=== PATIENT | male | born 1965 | race Caucasian/White ===

== ENCOUNTER → 2018-04-12 13:27 | Outpatient (CLI) | payer OTHER, SELFPAY ==
[2018-04-12 15:25] LABS: Amphetamine Urine VISTA NEGATIVE (<1000 ng/mL); Barbiturate Urine VISTA NEGATIVE (< 200 ng/mL); Benzodiazepine Urine VISTA NEGATIVE (< 200 ng/mL); Cocaine Urine VISTA NEGATIVE (< 300 ng/mL); Ecstacy Urine VISTA NEGATIVE (< 500 ng/mL); Methadone Urine VISTA NEGATIVE (< 300 ng/mL); PCP Urine VISTA NEGATIVE (< 25 ng/mL); THC Urine VISTA NEGATIVE (< 50 ng/mL); Vista UDS pH Range 6
== END ==
PROVIDERS: Family Provider Family Medicine; PCP Family Medicine; Visit Provider Anesthesiology Pain Medicine
DX: F11.20 Opioid dependence, uncomplicated (principal)
CPT/HCPCS: 80307

== ENCOUNTER → 2018-12-28 16:15 | Outpatient (CLI) | payer OTHER, SELFPAY ==
[2015-08-29 10:10] VITALS: BMI 31.6
[2018-12-28 17:57] LABS: Amphetamine Urine VISTA NEGATIVE (<1000 ng/mL); Barbiturate Urine VISTA NEGATIVE (< 200 ng/mL); Benzodiazepine Urine VISTA NEGATIVE (< 200 ng/mL); Cocaine Urine VISTA NEGATIVE (< 300 ng/mL); Ecstacy Urine VISTA NEGATIVE (< 500 ng/mL); Methadone Urine VISTA NEGATIVE (< 300 ng/mL); PCP Urine VISTA NEGATIVE (< 25 ng/mL); THC Urine VISTA NEGATIVE (< 50 ng/mL); Vista UDS pH Range 5
== END ==
PROVIDERS: Family Provider Family Medicine; PCP Family Medicine; Referring Provider Anesthesiology Pain Medicine; Visit Provider Anesthesiology Pain Medicine
DX: M51.26 Other intervertebral disc displacement, lumbar region (principal); M51.36 Other intervertebral disc degeneration, lumbar region; M96.1 Postlaminectomy syndrome, not elsewhere classified; S30.0XXA Contusion of lower back and pelvis, initial encounter
CPT/HCPCS: 80307

== ENCOUNTER 2019-01-16 17:50 | Inpatient (IN) | payer MEDICARE, SELFPAY ==
[2019-01-16] VITALS (18 sets, daily range): BP systolic 98–248; BP diastolic 58–229; PULSE 93–118; RESP 11–53; TEMP 37.9–38.2; O2SAT 63–100; BMI 32.7; BMI 33.3
[2019-01-16] MEDS: Etomidate 20 MG/10 ML Vial IV (17:56)
[2019-01-16] MEDS: Heparin Injection (Vial) 5,000 UNIT/ML VIAL 4000 UNIT IV (17:57)
--- NOTE | 2019-01-16 17:57 | RAD_ITS ---
STUDY: X-RAY CHEST REASON FOR EXAM: Male, 53 years old. Chest pain. TECHNIQUE: Single frontal projection of the chest. COMPARISON: None. FINDINGS: The majority of the chest is obscured by an electromechanical device, probably an automated CPR device. The exam is completely nondiagnostic RAD/Chest 1 View (Portable) IMPRESSION: The majority of the chest is obscured by an electromechanical device, probably an automated CPR device. The exam is completely nondiagnostic Electronically Signed: Julian Silva MD at 12:41 EDT , Service support ,
--- NOTE | 2019-01-16 17:57 | EKG12_ITS ---
Test Reason : CODE BLUE Blood Pressure : / mmHG Vent. Rate : 111 BPM Atrial Rate : 111 BPM P-R Int : 152 ms QRS Dur : 138 ms QT Int : 358 ms P-R-T Axes : 062 111 -25 degrees QTc Int : 486 ms Sinus tachycardia Right bundle branch block Left posterior fascicular block Bifascicular block ST elevation consider inferolateral injury or acute infarct ACUTE CO / STEMI Abnormal ECG Confirmed by CALLY SHORE ([id number]), acquisitions editor DAVID KOEHLER ([id number]) on 01/29/2019 2:29:56 PM Referred By: Junior Martini Confirmed By:MONSERRAT SHORE
--- NOTE | 2019-01-16 18:05 | RAD_ITS ---
STUDY: X-RAY - ABDOMEN/PELVIS REASON FOR EXAM: Male, 53 years old. Orogastric tube placement TECHNIQUE: AP portable COMPARISON: None. FINDINGS: Limited visualization of the upper abdomen Diffuse effacement of the folds of the descending colon possibly due to inflammatory bowel disease.. There is no demonstrated free abdominal air. The visualized liver, spleen and kidneys are grossly normal in size and morphology. Orogastric tube is not visualized within the visualized portions of the abdomen There appears to be a catheter within the bladder.. Postsurgical changes status post multilevel lumbar fusion. RAD/Abdomen Single View IMPRESSION: Nonvisualization of orogastric tube within the upper abdomen.. Repeat film with better positioning recommended for further evaluation Electronically Signed: Dave Dodson MD at 19:04 EDT , Service support ,
--- NOTE | 2019-01-16 18:05 | CPS ---
Critical values on ABG given to Dr. Rand at 1802.
[2019-01-16 18:10] LABS: Base Excess -15 mmol/L (-2 to +2); Bicarbonate 15.9 mmol/L (22-26); Blood Gas Specimen Type ART; FI02 100; PO2 179 mmHG (75-100); SITE L Femoral; SO2 99 % (95-99); Time Given 1751; Total Carbon Dioxide 18 mmol/L; pCO2 60.2 mmHg (35-45); pH 7.03 (7.35-7.45)
--- NOTE | 2019-01-16 18:11 | ED.VIS.GEN ---
History of Present Illness Chief Complaint: CPR Detail of Chief Complaint: Witnessed V. fib arrest Informant: Panel Monitor Limited by: - - GCS 3 Onset: Today - 170 Context: Onset with activity Timing: Continuous Quality: Read narrative Location: Read narrative Current Severity: Severe Maximum Severity: Severe Worsened by: Unknown Relieved by: Unknown Associated Symptoms: Unknown Narrative: 53-year-old male with significant other refurbishing house purchased this past fall. He apparently collapsed. CPR was initiated at 1702. Her medics were contacted. Upon their arrival he was in V. fib. He received appropriate medications for V. fib as well as defibrillation. Airway was established. He arrived with a wide-complex rhythm and no palpable pulses. Prior similar symptoms: No Recent Illness/Hospitalization: No - Past Medical History (1) Chronic back pain Status: Chronic (2) Depression Status: Chronic (3) Obesity Status: Chronic (4) Tobacco abuse Status: Chronic Past Medical History - Allergies and Home Meds Allergies/Adverse Reactions: Allergies No Known Allergies Allergy (Verified 08/26/15 11:39) Primary Care Physician: Yassine Tinsley MD [Primary Care Provider] - Prior records reviewed: No Surgical History: noncontributory Lives: Spouse/ Significant Other Smoking Status: Current every day smoker Review of Systems ROS: Unable to Obtain Physical Exam Vital Signs/Narrative: Vital Signs Resp BP 01/16/19 17:52 18 169/148 H Inital Vital Signs reviewed: Yes General: Well nourished, Well developed, Obese Head: Normocephalic, Atraumatic. Negative for: Trauma, Tenderness Eyes: - - Pupils fixed and dilated ENT: Moist mucous membranes, No rhinorrhea, TM's clear Neck: Supple, No lymphadenopathy Cardiovascular: - - Wide-complex tachycardia with no palpable pulses or heart tones Respiratory: - - Ventilation per squad Abdomen: Soft Rectal: Deferred Extremities: Nontender, - Skin: - - Skin is pale and mottled Neurological: - - GCS 3 Diagnostic/Tx/Re-eval - Medical Decision Making Transthoracic echo was performed which revealed good contractility. There were no palpable pulses, however. Based on history, the transport time concern for metabolic acidosis. 2 A of bicarb was given an additional amp of epinephrine was given. 2 minutes later patient was reassessed. EKG was obtained and reveals ST elevation [place]. Patient received 4000 units of heparin, aspirin and Brilinta through OG tube and amiodarone drip was ordered. He received 2 boluses prior to arrival. The gel tube was removed since I was unsuccessful in intubating patient through the gel tube. He was successfully intubated with a 7.5 endotracheal tube with appropriate color change on capnometer and breath sounds noted bilaterally. OG was placed per me. Unable to obtain x-ray to document placement because patient on resuscitation board with hardware noted. Patient's case was discussed with paramedics, nursing staff, Dr. Martini who is on for ST elevation NE, hospitalist. Patient taken to [facility] in critical condition. Procedures Procedure(s): 1. Transthoracic echo which revealed good contractility. 2. ACLS treatment for PEA and V. tach which included defibrillation and cardioversion since first time he had no pulses and when he went back into V. tach he was noted to have pulses. 3. Oral tracheal intubation by me with a 7.5 endotracheal tube. 4. In the context of right proximal humerus by me. 5. Critical care time 30 minutes. 6. Initiation of hypothermia protocol ED Disposition - Plan for ED Patient: Disposition: Acute Care Hospital [facility] Diagnosis: Cardiac arrest with ventricular fibrillation, Acute anterior wall NE Referrals: Yassine Tinsley MD [Primary Care Provider] -
[2019-01-16 18:14] LABS: Absolute Lymphocyte Count 6.71 X10^3/ul (0.83-4.51); Absolute Neutrophil Count 9.5 X10^3/uL (2.0-7.7); Basophil# 0.08 X10^3/uL; Basophil% 0.4 % (0-1); Eosinophil# 0.23 X10^3/uL; Eosinophils% 1.3 % (0-5); Hematocrit 38.5 % (40-54); Hemoglobin 12.6 g/dl (13.0-16.5); Lymphocyte # 6.71 X10^3/ul (4.0); Lymphocyte % 37.6 % (19-41); Mean Corp Hgb Conc 32.7 g/gl (32-36); Mean Corpuscular Volume 97.7 fL (80-94); Mean Platelet Vol. 9.6 fl (6.2-12.0); Monocyte# 0.93 X10^3/uL; Monocyte% 5.2 % (0-10); Neutrophil % 53.3 % (47-70); Platelet Count 278 K/mm3 (150-450); RBC Distribution Width CV 14.6 % (11.6-14.6); RBC Distribution Width SD 51.9 fl (35.1-43.9); Red Blood Count 3.94 M/mm3 (4.6-6.2); White Blood Count 17.9 K/mm3 (4.4-11.0)
--- NOTE | 2019-01-16 18:16 | HP.PCM_ITS ---
Problem List (1) Cardiac arrest Status: Acute (2) Cardiac arrest with ventricular fibrillation Status: Acute (3) Acute anterior wall CO Status: Acute (4) Tobacco abuse Status: Chronic (5) Chronic back pain Status: Chronic Qualifiers: Back pain location: back pain in unspecified location (6) Obesity Status: Chronic Qualifiers: Obesity type: unspecified obesity type (7) Depression Status: Chronic History of Present Illness Date of Admission: 01/16/19 Chief Complaint: Collapse, cardiac arrest The patient is a 53 y/o M w/ PMHx: Morbid Obesity, Tobacco use, Depression, Chronic back pain following w/ Pain Management otherwise no noted cardiac history per report able to be obtained who presents to the [facility] ED on 01/16/19 via EMS w/ history of working on a house with his girlfriend at which point he unfortunately collapsed with no preceding complaints with immediate initiation of CPR per the girlfriend and called EMS who upon arrival continued CPR and noted that patient was in V. fib with 5-6 rounds of shocks performed with return to PA with then noted ST anterior elevation with no pulse with a total of 8 epi rounds, amnio bolus x2, bicarb dosing x4 with an IO placed in the right tibia as well as humerus with initially pulseless upon ED presentation with a transthoracic bedside echo performed revealing good contractility with an additional 2 A of bicarb administered in addition to epinephrine with reassessment 2 minutes following with at that time repeat EKG obtained with elevated's of anterior ST elevation CO with resumption of pulse. Cardiology was immediately called heparin bolus was administered as well as amiodarone drip initiated with also requested aspirin and Brilinta administration via OG however OG was not confirmed and therefore aspirin Brilinta were to be given following. Patient was successfully intubated in the ED. following intubation while in the ED patient did have episode of VT with defibrillation and cardioversion performed with following return to wide-complex sinus rhythm. Patient transition from the ED did cardiac catheterization lab. Past Medical History Past Medical History (Chronic Problems): Chronic Problems Tobacco abuse (Chronic) Chronic back pain (Chronic) Obesity (Chronic) Depression (Chronic) Allergies No Known Allergies Allergy (Verified 08/26/15 11:39) Home Medications: Ambulatory Orders Medication Instructions Recorded Aspirin [Adult Low Dose Aspirin EC] 81 mg PO DAILY PRN 08/26/15 Doxycycline Hyclate 100 mg PO BID 08/26/15 Naproxen Sodium [Aleve] 220 mg PO Q12H PRN PRN 08/26/15 Quetiapine Fumarate [Seroquel] 100 mg PO DAILY 08/26/15 Venlafaxine HCl [Effexor] 150 mg PO DAILY 08/26/15 Surgical History: - - Patient status post back surgery as well as surgery status post some form of trauma with noted grafting at least to the right lower extremity. Psychiatric History: Depression Lives: Spouse/ Significant Other Smoking Status: Current every day smoker Tobacco Use: Cigarettes Alcohol: None Drugs: None - *Family History Maternal History Items: Unknown - Unable to obtain patient history secondary to intubated, recent cardiac arrest and nonresponsive status. Paternal History Items: Unknown - Unable to obtain patient history secondary to intubated, recent cardiac arrest and nonresponsive status. Review of Systems Unable to obtain accurate/complete ROS d/t: Unable to obtain, cardiac arrest, intubated. VTE Information - Inpt Only VTE Present on Admission: No VTE Mechan Device Prophylaxis: SCD's VTE Pharm Prophylaxis ordered?: Yes Patient Problems: Active and Suspected Problems Cardiac arrest with ventricular fibrillation (Acute) Acute anterior wall CO (Acute) Cardiac arrest (Acute) Subjective: Laying in the ED bed, currently ED physician attempting intubation, gurgling upper airway sounds, recent pulse resumption. Objective: Physical Examination: General: Not awake, not alert, not oriented, unresponsive, currently ED physician attempting intubation. Skin: normal color, turgor, no icterus, cyanosis except noted diffuse body small picked regions with scabs, noninfected appearing as well as prior evidence of surgical intervention especially to the right lateral thigh with what appears to be some kind of trauma status post grafting as well.. HEENT: AT/NC, EOM unable to be assessed given acute presentation, sluggish pupils, equal, decrease response, dry MM, no carotid bruits or JVD noted; however, difficult assessment given current attempts for intubation. Lungs: Intubation successful, symmetric rise, mildly coarse breath sounds bilateral bases, distant breath sounds, no rales, ronchi or wheezing. Heart: Tachycardic, currently wide-complex on monitor; no gallop, rub audible. Abdomen: soft, morbidly obese, NTTP, ND, normal BS, no HSM;, habitus makes examination difficult. Extremities: no cyanosis, clubbing, or edema. Neurological: Not awake, not alert, not oriented, unresponsive, currently ED physician attempting intubation; cognitive function not baseline intact; pupils equal, decreased reactive venous to light; cranial nerves difficult to assess given current presentation with attempts for intubation, unresponsive, no gag noted with current attempts, not moving any extremities, not moving to any painful stimuli. Psychiatric: affect appears flat, no acute evidence of depressive or anxiety feelings. - Physical Exam Vital Signs Resp BP 18 169/148 H 01/16/19 17:52 01/16/19 17:52 Laboratory Tests Past 24 Hrs 01/16/19 01/16/19 01/16/19 17:31 17:31 17:31 WBC Pending RBC Pending Hgb Pending Hct Pending MCV Pending MCH Pending MCHC Pending RDW Pending RDW Differential Pending Plt Count Pending Neut % (Auto) Pending Absolute Neuts (auto) Pending Total Counted Pending PT Pending INR Pending APTT Pending Specimen Type Sample Site pH Bicarbonate Actual POC Total CO2 Base Excess O2 Saturation O2 % ABG pCO2 ABG pO2 Fred Test O2 Delivery Device Blood Gas Notified Whom Blood Gas Notified Time Sodium Pending Potassium Pending Chloride Pending Carbon Dioxide Pending Anion Gap Pending BUN Pending Creatinine Pending Est GFR (MDRD) Af Amer Pending Est GFR (MDRD) Non-Af Pending BUN/Creatinine Ratio Pending Glucose Pending Calcium Pending Troponin I Pending 01/16/19 18:00 WBC RBC Hgb Hct MCV MCH MCHC RDW RDW Differential Plt Count Neut % (Auto) Absolute Neuts (auto) Total Counted PT INR APTT Specimen Type ART Sample Site L Femoral pH 7.03 L* Bicarbonate Actual 15.9 L POC Total CO2 18 Base Excess -15 L O2 Saturation 99 O2 % 100 ABG pCO2 60.2 H ABG pO2 179 H Fred Test NA O2 Delivery Device Ambu Blood Gas Notified Whom ED MD Blood Gas Notified Time 1751 Sodium Potassium Chloride Carbon Dioxide Anion Gap BUN Creatinine Est GFR (MDRD) Af Amer Est GFR (MDRD) Non-Af BUN/Creatinine Ratio Glucose Calcium Troponin I Assessment/Plan All Active Problems Cardiac arrest with ventricular fibrillation (Acute) Acute anterior wall CO (Acute) Cardiac arrest (Acute) The patient is a 53 y/o M w/ PMHx: Morbid Obesity, Tobacco use, Depression, Chronic back pain following w/ Pain Management otherwise no noted cardiac history per report able to be obtained who presents to the [facility] ED on 01/16/19 via EMS w/ history of working on a house with his girlfriend at which point he unfortunately collapsed with no preceding complaints with immediate initiation of CPR per the girlfriend and called EMS who upon arrival continued CPR and noted that patient was in V. fib w/ eventual ROSC w/ noted anterior STEMI. (1) Collapse with cardiac arrest secondary to suspected VF w/ Anterior STEMI w/ Acute Hypoxic Respiratory Failure: EKG in ED w/ confirmed anterior STEMI, CXR w/ appropriate ET tube placement. Trop elevated, 0.463, pending CBC, pending BMP, pending ABG upon evaluation of patient. Transitioned from ED to Cardiac catheterization lab. Following, will admit to the ICU, maintain on vent, maintain on IV fentanyl only per Cardiology preference to avoid hypotension, ICU physician contacted and case reviewed, maintain on a monitored bed, continue serial cardiac enzymes and EKGs. Obtain magnesium level upon admission. Heparin drip will be initiated per cardiology given balloon pump usage. Given timeline will need to repeat KUB and confirm OG placement in the ICU with an administration of aspirin and Brilinta per discussion with cardiology. Will be maintained on a bicarb drip per discussion with cardiology as well as amiodarone drip. Repeat EKGs PRN and in AM. Patient will also be continued on intended Brilinta drip secondary to timeline. Continue medical management w/ asa, statin w/ AM FLP. Will defer beta-lewis, SHANIQUA inhibitor versus ARB addition per cardiology, currently per discussion with cardiology will maintain only on IV fe ntanyl for sedation as concerns for possible hypertension cardiology, ECHO in AM. (2) Tobacco Abuse: Encourage cessation once alert, inpatient consultation per RT, NR deferred as unclear usage amount and acute presentation as noted #1. (3) Chronic back pain: Unclear regimen, current presentation unresponsive, intention for hold on all oral medications regardless. (4) Morbid Obesity: Weight loss and lifestyle changes will be encouraged once alert, nutrition consulted. (5) DVT Prophylaxis: SCDs, intention for heparin drip given balloon pump placement per discussion with cardiology. Code Visit Inpatient E&M: 73087 Init Hosp L3
--- NOTE | 2019-01-16 18:16 | ED.DCSUM_ITS ---
History of Present Illness Chief Complaint: CPR Detail of Chief Complaint: Witnessed V. fib arrest Informant: Shipping Inspector Limited by: - - GCS 3 Onset: Today - 170 Context: Onset with activity Timing: Continuous Quality: Read narrative Location: Read narrative Current Severity: Severe Maximum Severity: Severe Worsened by: Unknown Relieved by: Unknown Associated Symptoms: Unknown Narrative: 53-year-old male with significant other refurbishing house purchased this past fall. He apparently collapsed. CPR was initiated at 1702. Her medics were contacted. Upon their arrival he was in V. fib. He received appropriate medications for V. fib as well as defibrillation. Airway was established. He arrived with a wide-complex rhythm and no palpable pulses. Prior similar symptoms: No Recent Illness/Hospitalization: No - Past Medical History (1) Chronic back pain Status: Chronic (2) Depression Status: Chronic (3) Obesity Status: Chronic (4) Tobacco abuse Status: Chronic Past Medical History - Allergies and Home Meds Allergies/Adverse Reactions: Allergies No Known Allergies Allergy (Verified 08/26/15 11:39) Primary Care Physician: Yassine Tinsley MD [Primary Care Provider] - Prior records reviewed: No Surgical History: noncontributory Lives: Spouse/ Significant Other Smoking Status: Current every day smoker Review of Systems ROS: Unable to Obtain Physical Exam Vital Signs/Narrative: Vital Signs Resp BP 01/16/19 17:52 18 169/148 H Inital Vital Signs reviewed: Yes General: Well nourished, Well developed, Obese Head: Normocephalic, Atraumatic. Negative for: Trauma, Tenderness Eyes: - - Pupils fixed and dilated ENT: Moist mucous membranes, No rhinorrhea, TM's clear Neck: Supple, No lymphadenopathy Cardiovascular: - - Wide-complex tachycardia with no palpable pulses or heart tones Respiratory: - - Ventilation per squad Abdomen: Soft Rectal: Deferred Extremities: Nontender, - Skin: - - Skin is pale and mottled Neurological: - - GCS 3 Diagnostic/Tx/Re-eval - Medical Decision Making Transthoracic echo was performed which revealed good contractility. There were no palpable pulses, however. Based on history, the transport time concern for metabolic acidosis. 2 A of bicarb was given an additional amp of epinephrine was given. 2 minutes later patient was reassessed. EKG was obtained and reveals ST elevation [place]. Patient received 4000 units of heparin, aspirin and Brilinta through OG tube and amiodarone drip was ordered. He received 2 boluses prior to arrival. The gel tube was removed since I was unsuccessful in intubating patient through the gel tube. He was successfully intubated with a 7.5 endotracheal tube with appropriate color change on capnometer and breath sounds noted bilaterally. OG was placed per me. Unable to obtain x-ray to document placement because patient on resuscitation board with hardware noted. Patient's case was discussed with paramedics, nursing staff, Dr. Martini who is on for ST elevation [place], hospitalist. Patient taken to [facility] in critical condition. Procedures Procedure(s): 1. Transthoracic echo which revealed good contractility. 2. ACLS treatment for PEA and V. tach which included defibrillation and cardioversion since first time he had no pulses and when he went back into V. tach he was noted to have pulses. 3. Oral tracheal intubation by me with a 7.5 endotracheal tube. 4. In the context of right proximal humerus by me. 5. Critical care time 30 minutes. 6. Initiation of hypothermia protocol ED Disposition - Plan for ED Patient: Disposition: Acute Care Hospital [facility] Diagnosis: Cardiac arrest with ventricular fibrillation, Acute anterior wall FL Referrals: Yassine Tinsley MD [Primary Care Provider] -
[2019-01-16 18:21] LABS: Anion Gap 15 (5-15); BUN 16 mg/dL (7-18); BUN/Creat Ratio 10.2 RATIO (10-20); Calcium,Total 8.6 mg/dL (8.5-10.1); Chloride 108 mmol/L (98-107); Creatinine, Serum 1.57 mg/dL (0.70-1.30); Differential Indicated SCAN CRITERIA MET; EST Glomerular Filtration Rate 49 mL/min (>60); Est Glom Filt Rate - Afr Amer 60 mL/min (>60); Glucose 272 mg/dL (74-106); POSITIVE COUNT YES; POSITIVE DIFFERENTIAL YES; POSITIVE MORPHOLOGY YES; Potassium 3.5 mmol/L (3.5-5.1); Sodium Level 144 mmol/L (136-145)
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
[2019-01-16 18:41] LABS: Differential Comment SCANNED
[2019-01-16 18:51] LABS: International Normalized Ratio 1.3; Prothrombin Time (Protime)PT. 16.3 SECONDS (11.7-14.9)
[2019-01-16 18:52] LABS: Partial Thromboplast Time 44.1 Seconds (24.1-36.2)
--- NOTE | 2019-01-16 19:45 | CL.I_ITS ---
Patient Name: SAMANTHA TAI Study Date: 01/16/2019 Performing: Junior Martini MD Ht: inches cm : 1965 Wt: 280.01 lbs 127.01 kg Age: 53 Gender: male BSA: PROCEDURE(S) PERFORMED [id number]-[id number]/COR/LV [id number], ALLAN AND/OR PTCA, ARTERY OR GRAFT, SINGLE VESSEL [id number] INSERTION CLINICAL PROFILE AND CO-MORBIDITIES Patient presents with STEMI for emergent cardiac cath. Indications: Resuscitated Cardiac Arrest, Suspected CAD, Cardiac Arrythmia Heart Failure: Newly Diagnosed: Yes, Heart Failure Type: Systolic Stress/Imaging Stress/Image Study Performed: No Angina Classification Anginal Classification w/in 2 Weeks: No symptoms Comorbidities/Risk Factors: Current/Recent Smoker (< 1year) Hypertension Family History of Premature CAD CONCLUSIONS Global LV systolic dysfunction- Severe LVEF: by Echogram 15 % Depressed Left Ventricular systolic function - Severe Successful PTCA/ALLAN of mid LAD with a 2.5 x 16 Promus Synergy followed immediately upstream with a 2. 5 x 38 Promus Synergy, post dilated iwth a 3.5 x 12 NC balloon in proximal 2/3 of stent; 85%-->0%, no dissection or significant plaque shift into DIAGs. Successful PTCA/ALLAN Proximal LAD with a 3.5 x 16 Promus Synergy, post dilated throughout with a 3.5 x 12 NC Balloon; 85%-->0% ,no dissection. Emergent IABP placed for severe LV dysfunction and recent cardiac arrest. RECOMMENDATIONS Referred for immediate PCI Management as per referring Electrical Controls Assembler ASA Indefinitely Highly recommend quitting all tobacco products Follow up with primary forest economist Risk factor modification ASA Indefinitley Plavix for at least 12 months Routine post interventional care Refer for Outpatient Cardiac Rehab Manual sheath removal per protocol Follow up with Dr. Martini Medical management of PEDIATRIC ASSOCIATE RCA. Follow up with Dr. Martini DESCRIPTION OF PROCEDURE The patient arrived to the procedure lab. The risks and benefits of the procedure as well as a full d escription of our services here and lack of surgical backup were fully explained to the patient and/o r their significant other prior to the catheterization. The Timeout was completed, verifying the addie ect patient and procedure. The patient's procedural site was prepped and draped in the usual fashion. Local anesthetic was given subcutaneously to leftgroin region with Lidocaine 2%. Using a modified S eldinger technique, arterial access was obtained via the left femoral artery, a 6Fr sheath was insert ed.. Left Ventriculography was performed in SANTIAGO projection using a 4 Fr. Pigtail catheter. LV to AO pullback pressures were then recordedArrow 40cc 7.5F UltraFlex IABP - Qty: 1 Each Part #: [id number], A 7Fr 40cc IABP catheter was inserted into the left femoral artery, IABP settings: 1:1 emerge 2.00x12 Balloon catheter was inserted. PTCA balloon inflated at 8 atms for 6 secs. PTCA ba lloon inflated at 10 atms for 6 secs. PTCA balloon inflated at 10 atms for [address] ug Eluting stent was inserted. PTCA balloon inflated at 11 atms for 5 secs. Angiogram performed post stent deployment. BMW Guide wire was inserted as a elio wire Synergy 2.50x38 Drug Eluting stent was inserted. Angiogram performed post stent deployment. NC Emerge 3.50x12 Balloon catheter was inserted. PTCA balloon inflated at 12 atms for 6 secs. PTCA balloon inflated at 12 atms for 5 secs. PTCA ballo on inflated at 12 atms for 5 secs. Angiogram performed post balloon dilatation. Synergy 3.50x16 Drug Eluting stent was inserted. NC Emerge 3.50x12 Balloon catheter was inserted. PTCA balloon inflated at 12 atms for 6 secs. PTCA balloon inflated at 12 atms for 6 secs. PTCA balloon inflated at 14 atms fo r 7 secs. PTCA balloon inflated at 14 atms for 6 secs. PTCA balloon inflated at 14 atms for 10 secs. Angiogram performed post balloon dilatation. The arterial sheath was sutured in place and capped. The venous sheath was then sutured inplace and capped CORONARY ANGIOGRAPHY DOMINANCE: Right Dominant LEFT HEART ASSESSMENT Left Ventricular Ejection Fraction: by LV Gram 15 % Depressed Left Ventricular systolic function LVEDP: 34 mmHg Abnormal Left Ventricular contraction pattern Global Hypokinesis - Severe LEFT MAIN: No significant disease noted LEFT ANTERIOR DECENDING ARTERY: PROX LAD: 85 % Stenosis MID LAD: 85 % Stenosis, 75 % Stenosis CIRCUMFLEX ARTERY: DISTAL CIRC: Moderate luminal irregularities up to 50% RIGHT CORONARY ARTERY: MID RCA: is occluded COLLATERAL FLOW: Collateral flow from Left to Right INTERVENTION INFORMATION LESION SITE: LAD (Mid) Lesion Complexity: High/C, lesion at bifurcation: No, thrombus present: No, lesion length: 54 mm, cul prit lesion: Yes Pre Stenosis: 85 % Pre intervention CAMRYN flow: 3 PROCEDURE: Drug Eluting Stent with pre and post dilatation Post Stenosis: 0 % Post intervention CAMRYN flow: 3 Lesion Devices: William Sci Synergy MR ALLAN 2.50x16 William Sci EMERGE MR 2.00x12 BALLOON LESION SITE: LAD (Proximal) Lesion Complexity: High/C, lesion at bifurcation: No, thrombus present: No, culprit lesion: No Pre Stenosis: 85 % Pre intervention CAMRYN flow: 3 PROCEDURE: Drug Eluting Stent with pre and post dilatation Post Stenosis: 0 % Lesion Devices: William Sci NC EMERGE MR 3.50x12 BALLOON William Sci Synergy MR ALLAN 2.50x38 William Sci EMERGE MR 2.00x12 BALLOON COMPLICATIONS No Complications PROCEDURE MEDICATIONS Versed 1 mg IV Versed 1 mg IV Oxygen: 100% FiO2 via ventilator. See Resp Record for Settings Amiodarone 500mg / 100ml D5W @ 33.3ml/hr IV started @ 01/16/2019 18:20:52 Heparin 6000 unit(s) IV 01/16/2019 18:30:12 Lasix 40 mg IV 01/16/2019 19:08:58 Heparin 6000 unit(s) IV 01/16/2019 19:10:59 IV Bolus: .9 NaCl 2500 ml total 01/16/2019 19:23:10 SUMMARY OF HEMODYNAMIC DATA Time AIR REST ECG 18:22:54 AO 91/66 (77) SA 18:28:40 LV 105/3, 28 19:02:56 LV 110/10, 34 19:03:13 LVp 98/4, 30 19:03:26 AOp 106/66 (79) 19:03:31 Signed By Junior Martini MD On 01/16/2019 20:19:46 Junior Martini MD
[2019-01-16 19:46] LABS: ACT Activated Clotting Time 175 sec (74-137)
[2019-01-16 19:46] LABS: Blood Gas Specimen Type VEN; VBG BASE EXCESS -6 mmol/L (-1.0-3.5); VBG Bicarbonate 21 mmol/L (22-26); VBG Oxygen Content 22 mmol/L (23-33); VBG PO2 409 mmHg (25-40); VBG SO2 100 % (50-70); VBG pCO2 48.1 mmHg (41-51); VBG pH 7.25 (7.32-7.42)
[2019-01-16 19:46] LABS: Base Excess -10 mmol/L (-2 to +2); Bicarbonate 16.8 mmol/L (22-26); Blood Gas Specimen Type ART; FI02 100; Mode A-C; O2 Delivery Device Vent; PEEP 5; PO2 391 mmHG (75-100); RR 26; SITE R Femoral; SO2 100 % (95-99); Total Carbon Dioxide 18 mmol/L; Vt 550; pCO2 37.5 mmHg (35-45); pH 7.26 (7.35-7.45)
[2019-01-16 19:46] LABS: ACT Activated Clotting Time 158 sec (74-137)
[2019-01-16] MEDS: Midazolam 2 MG/2 ML Syringe IV (20:11)
--- NOTE | 2019-01-16 20:16 | ECHOCS_ITS ---
Reason For Study: CAD Procedure This was a 2D Doppler, Color Flow transthoracic echocardiogram. Contrast injection was performed. Technically difficult due to supine positioning - on vent and balloon pump. Exam performed portable in ICU/CCU. Left Ventricle Moderately dilated left ventricle. Mild concentric left ventricular hypertrophy. The estimated ejection fraction is 25-30 %. Stage 1 diastolic dysfunction. There are regional wall motion abnormalities as specified. Infero-Basal: Severely Hypokinetic. Mid-Posterior: Severely Hypokinetic. Mid-Lateral : Mildly hypokinetic. Right Ventricle Moderately dilated right ventricle. Normal systolic function. Atria The left atrium is mildly enlarged. Normal right atrium. Normal atrial septum. Mitral Valve Mild diffuse mitral valve thickening. Mild (1+) anteriorly directed mitral valve insufficiency. Tricuspid Valve Normal tricuspid valve. Mild (1+) tricuspid valve insufficiency. Right ventricular systolic pressure estimated to be 35 mmHg. Aortic Valve Trisinus/trileaflet aortic valve. Normal aortic valve. Pulmonic Valve The pulmonic valve is not well visualized. Great Vessels Normal aortic root. Normal arch. Normal inferior vena cava. Inferior vena cava collapse with sniff. Pericardium/Pleural No pericardial effusion. Medication Diluted definity 3ml given slow IV push to enhance endocardial definition. MMode/2D Measurements & Calculations LVIDd: 5.8 cm IVSd: 1.3 cm Ao root diam: 3.6 cm LVIDs: 5.0 cm LVPWd: 1.3 cm RVDd: 4.0 cm FS: 14.5 % LAV(MOD-bp): 64.1 ml LVAd ap4: 52.3 cm2 SV(MOD-sp4): 77.9 ml LAV(MOD-bp) Indexed: 27.9 ml/m2 EDV(MOD-sp4): 217.7 ml LAV(MOD-sp2): 53.3 ml EDV(sp4-el): 225.7 ml LAV(MOD-sp4): 71.6 ml LVAs ap4: 39.7 cm2 ESV(MOD-sp4): 139.9 ml ESV(sp4-el): 148.4 ml EF(MOD-sp4): 35.8 % EF(sp4-el): 34.2 % SV(sp4-el): 77.3 ml LA A4 area: 22.4 cm2 LA dimension(2D): 4.0 cm RA A4 area: 19.3 cm2 Time Measurements MV dec time: 0.18 sec Doppler Measurements & Calculations MV E max drew: 95.2 cm/sec Lat Peak E' Drew: 9.6 cm/sec Med Peak E' Drew: 5.6 cm/sec MV A max drew: 62.7 cm/sec E/E' lat: 9.9 E/E' med: 17.2 MV E/A: 1.5 Ao V2 max: 111.2 cm/sec LV V1 max: 98.7 cm/sec TR max drew: 273.7 cm/sec Ao max P.0 mmHg LV V1 max P.9 mmHg TR max P.0 mmHg Interpretation Summary Moderately dilated left ventricle. Mild concentric left ventricular hypertrophy. The estimated ejection fraction is 25-30 %. Stage 1 diastolic dysfunction. There are regional wall motion abnormalities as specified. Moderately dilated right ventricle. The left atrium is mildly enlarged. Mild (1+) anteriorly directed mitral valve insufficiency. Mild (1+) tricuspid valve insufficiency. Right ventricular systolic pressure estimated to be 35 mmHg. The study was technically limited. Contrast injection was performed. There is no comparison study available. Ordering Physician: Bhavna Rosales Referring Physician: LILY PRIETO Performed By: Bethany Meyer, RDCS, RVT
--- NOTE | 2019-01-16 20:16 | EKG12_ITS ---
Test Reason : STEMI Blood Pressure : / mmHG Vent. Rate : 095 BPM Atrial Rate : 095 BPM P-R Int : 130 ms QRS Dur : 124 ms QT Int : 402 ms P-R-T Axes : 019 104 -17 degrees QTc Int : 505 ms Normal sinus rhythm Normal ECG No previous ECGs available Confirmed by TYRON CEVALLOS, MARIN ([id number]), restaurant expeditor MANAV CASIANO ([id number]) on 01/22/2019 12:38:25 PM Referred By: Junior Martini Confirmed By:MARIN ACKERMAN MD
--- NOTE | 2019-01-16 20:30 | RAD_ITS ---
STUDY: X-RAY - ABDOMEN/PELVIS REASON FOR EXAM: Male, 53 years old. NG placement TECHNIQUE: KUB COMPARISON: None. FINDINGS: Normal visualized lung bases. Mild nonspecific bowel distention.. There is no demonstrated free abdominal air. NG tube is noted with tip in proximal gastric fundus The visualized liver, spleen and kidneys are grossly normal in size and morphology. Normal soft tissue structures. Postsurgical changes of the lumbar spine. RAD/Abdomen Single View IMPRESSION: NG tube present with tip in proximal gastric fundus Electronically Signed: Dave Dodson MD at 20:58 EDT , Service support ,
[2019-01-16] MEDS: fentaNYL drip 100 ML 5 MCG IV (21:00)
[2019-01-16] MEDS: HEPARIN/D5w 25,000 UNITS 25,000 UNITS/250 ML IV.SOLN. 15 UNITS IV (21:15)
[2019-01-16] MEDS: TICAGRELOR 90 MG TABLET 180 MG PO (21:18)
[2019-01-16] MEDS: Aspirin 81 MG TAB.CHEW 324 MG PO (21:19)
[2019-01-16 21:32] LABS: Hematocrit 36.6 % (40-54); Hemoglobin 12.5 g/dl (13.0-16.5); Magnesium 1.4 mg/dL (1.6-2.6); Mean Corp Hgb Conc 34.2 g/gl (32-36); Mean Corpuscular Hgb 32.2 pg (27.0-32.0); Mean Corpuscular Volume 94.3 fL (80-94); Platelet Count 246 K/mm3 (150-450); RBC Distribution Width CV 14.7 % (11.6-14.6); RBC Distribution Width SD 49.8 fl (35.1-43.9); Red Blood Count 3.88 M/mm3 (4.6-6.2)
[2019-01-16 21:44] LABS: Scan Indicated on CBC? Y/N YES- FLAGS NOTED; White Blood Count 38.6 K/mm3 (4.4-11.0)
[2019-01-16 22:11] LABS: Differential Comment SCANNED
[2019-01-16] MEDS: Chlorhexidine 15 ML PO (22:15)
[2019-01-16 23:05] LABS: Bedside Glucose 122 mg/dL (70-110)
[2019-01-16] MEDS: Famotidine 20 MG Tablet GT (23:38)
[2019-01-16] MEDS: Furosemide 40 MG/4 ML Vial IV (23:38)
[2019-01-16] MEDS: Atorvastatin Calcium 80 MG Tablet PO (23:38)
[2019-01-16 23:54] LABS: AST(SGOT) 399 U/L (15-37); Alanine Aminotransfer ALT/SGPT 252 U/L (16-61); Albumin, Serum 2.7 g/dL (3.2-5.0); Alkaline Phosphatase 90 U/L (45-117); Bilirubin, Direct < 0.05 mg/dL (0.00-0.30); Globulin 2.6 g/dL (2.2-4.2); Protein, Total 5.3 g/dL (6.4-8.2)
[2019-01-17] VITALS (49 sets, daily range): BP systolic 65–221; BP diastolic 50–193; PULSE 91–120; RESP 12–47; TEMP 37.7–39.8; O2SAT 87–100
[2019-01-17 00:15] LABS: NRBC Flagged by Analyzer 0.6 % (0-5)
[2019-01-17] MEDS: 0.9% NaCl IVPB Med Flush (250 mL) 15 ML IV (01:23)
[2019-01-17] MEDS: Acetaminophen 650 MG/20 ML UDC GT (01:24)
--- NOTE | 2019-01-17 02:15 | NURSING ---
Pt's belongings sorted:1 pr of karen arita/kaden pin,[place] license,[place] bank card,[place] bank card,Rx from dated 01/16/19;also found $726 in bills and $1.03 in loose change. Money,licenses,cards placed in bag and secured in bottom med drawer of pt room.
[2019-01-17 02:16] LABS: Bedside Glucose 83 mg/dL (70-110)
[2019-01-17 03:35] LABS: Absolute Lymphocyte Count 1.49 X10^3/ul (0.83-4.51); Absolute Neutrophil Count 18.2 X10^3/uL (2.0-7.7); Basophil# 0.01 X10^3/uL; Eosinophil# 0.01 X10^3/uL; Hematocrit 39.1 % (40-54); Lymphocyte # 1.49 X10^3/ul (4.0); Lymphocyte % 6.8 % (19-41); Mean Corp Hgb Conc 33.2 g/gl (32-36); Mean Corpuscular Hgb 31.6 pg (27.0-32.0); Mean Corpuscular Volume 95.1 fL (80-94); Mean Platelet Vol. 9.3 fl (6.2-12.0); Monocyte# 2.15 X10^3/uL; Monocyte% 9.8 % (0-10); Neutrophil # 18.16 X10^3/uL (2.7-7.7); Neutrophil % 83.1 % (47-70); Platelet Count 384 K/mm3 (150-450); RBC Distribution Width CV 15.2 % (11.6-14.6); RBC Distribution Width SD 52.3 fl (35.1-43.9); Red Blood Count 4.11 M/mm3 (4.6-6.2); White Blood Count 21.9 K/mm3 (4.4-11.0)
[2019-01-17 03:37] LABS: Differential Indicated SCAN CRITERIA MET; POSITIVE COUNT NO; POSITIVE DIFFERENTIAL YES; POSITIVE MORPHOLOGY NO; Partial Thromboplast Time 110.2 Seconds (24.1-36.2)
[2019-01-17 03:38] LABS: Absolute Nucleated RBC Count 0.06 10^3/uL (0-5); NRBC Flagged by Analyzer 0.3 % (0-5)
[2019-01-17 04:25] LABS: AST(SGOT) 2174 U/L (15-37); Alanine Aminotransfer ALT/SGPT 1649 U/L (16-61); Albumin, Serum 3.1 g/dL (3.2-5.0); Alkaline Phosphatase 84 U/L (45-117); Anion Gap 15 (5-15); BUN 26 mg/dL (7-18); BUN/Creat Ratio 9.6 RATIO (10-20); Calcium,Total 7.5 mg/dL (8.5-10.1); Chloride 107 mmol/L (98-107); Cholesterol 170 mg/dL (200); Creatinine, Serum 2.72 mg/dL (0.70-1.30); EST Glomerular Filtration Rate 26 mL/min (>60); Est Glom Filt Rate - Afr Amer 32 mL/min (>60); Estimated Creatinine Clearance 34.87 ml/min; Globulin 3.2 g/dL (2.2-4.2); Glucose 117 mg/dL (74-106); High Density Lipoprotein 45 mg/dL; Potassium 5.4 mmol/L (3.5-5.1); Protein, Total 6.3 g/dL (6.4-8.2); Sodium Level 145 mmol/L (136-145); Triglycerides 64 mg/dL; Very Low Density Lipoprotein 13 mg/dL (5-40)
--- NOTE | 2019-01-17 04:42 | NURSING ---
Pt education deferred to current pt status, pt is on ventilator and nonresponsive;no family present.
--- NOTE | 2019-01-17 05:07 | RAD_ITS ---
STUDY: X-RAY CHEST REASON FOR EXAM: Male, 53 years old. There are 5 balloon position. TECHNIQUE: Single AP portable view of the chest. COMPARISON: January 16/2019 FINDINGS: Endotracheal tube tip 6 cm superior to the gasper. The enteric tube courses inferior to the left diaphragm, its tip is not included or visualized. There are superimposed monitor leads. Metallic balloon tip just inferior to the aortic arch. The lungs are clear and expanded. There is no demonstrated pleural abnormality. Normal size heart. Normal mediastinum and magnus. Normal visualized pulmonary arteries. Normal visualized aortic arch and descending thoracic aorta. Normal visualized thoracic spine. Normal visualized ribs, clavicles, and shoulders. There is no demonstrated abnormality of the visualized soft tissue structures of the upper abdomen. RAD/Chest 1 View (Portable) IMPRESSION: Lines as above. No pulmonary edema, congestive heart failure or confluent pneumonia. Electronically Signed: Amber Mcdonald MD at 5:38 EDT , Service support ,
[2019-01-17 05:46] LABS: Base Excess -6 mmol/L (-2 to +2); Bicarbonate 18.8 mmol/L (22-26); Blood Gas Specimen Type ART; FI02 50; Mode A-C; O2 Delivery Device Vent; PEEP 5; PO2 158 mmHG (75-100); RR 12; SITE L Radial; SO2 99 % (95-99); Total Carbon Dioxide 20 mmol/L; Vt 450; pCO2 30.3 mmHg (35-45)
--- NOTE | 2019-01-17 06:22 | CON.PCM_ITS ---
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 Bystander CPR was initiated until EMS arrival, after which time, ACLS was initiated. The patient was initially noted to be in V. fib, which necessitated defibrillation. On arrival to the ED, the patient was treated both for PEA and pulseless V. tach. He was emergently intubated. Multiple rounds of ACLS was administered. ROSC was achieved. The patient was then taken for cardiac catheterization. The patient was noted to have high-grade stenosis in the proximal and mid LAD. Drug-eluting stents were placed in the patient's mid and proximal LAD lesions. An intra-aortic balloon pump was subsequently placed. The patient was noted to have a severely depressed LV systolic ejection fraction of approximately 15%. The patient was subsequently transferred to the medical intensive care unit for ongoing management. Overnight, he has been maintained on amiodarone and a continuous bicarb infusion. The patient was febrile overnight with a T-max of 103.7 ?F. Orders were given to obtain cultures and place the patient on antibiotics. Although the patient initially presented to the ICU on Levophed, the vasopressor was able to be weaned off at approximately 11 PM. The patient's white blood cell count remains elevated this morning. Arterial blood gas obtained this morning revealed a pH of 7.40 with a corresponding PCO2 of 30 and PO2 of 158. The patient has worsening renal insufficiency with a creatinine of 2.72 and has essentially made no urine. The patient's last troponin was noted to be 126. He also has evidence of acute liver injury as well. Past Medical History Past Medical History (Chronic Problems): Chronic Problems (Last Updated 01/17/19 @ 09:11 by Tg Simons) Arteriosclerosis of coronary artery in patient with history of myocardial infarction (Chronic) STEMI, VFib arrest, coronary stents to LAD X 2 01/16/19 Stented coronary artery (Chronic 01/16/19) Global LV systolic dysfunction- Severe, LVEF: by Echogram 15 %; Depressed Left Ventricular systolic function - Severe; Successful PTCA/ALLAN of mid LAD with a 2.5 x 16 Promus Synergy followed immediately upstream with a 2.5 x 38 Promus Synergy, post dilated iwth a 3.5 x 12 NC balloon in proximal 2/3 of stent; 85%-->0%, no dissection or significant plaque shift into DIAGs. [place] ccessful PTCA/ALLAN Proximal LAD with a 3.5 x 16 Promus Synergy, post dilated throughout with a 3.5 x 12 NC Balloon; 85%-->0% ,no dissection. Emergent IABP placed for severe LV dysfunction and recent cardiac arrest. Tobacco abuse (Chronic) Chronic back pain (Chronic) Obesity (Chronic) Depression (Chronic) Medical History: Medical History (Last Updated 01/17/19 @ 09:11 by Tg Simons) Ischemic cardiomyopathy (Acute) I25.5 EF 15% per cath post ME and Vfib arrest 01/16/19 Arteriosclerosis of coronary artery in patient with history of myocardial infarction (Chronic) I25.10, I25.2 STEMI, VFib arrest, coronary stents to LAD X 2 01/16/19 Cardiac arrest with ventricular fibrillation (Acute) I46.9, I49.01 Acute anterior wall ME (Acute) I21.09 Cardiac arrest (Acute) I46.9 Tobacco abuse (Chronic) Z72.0 Allergies No Known Allergies Allergy (Verified 08/26/15 11:39) Home Medications: Ambulatory Orders Medication Instructions Recorded Aspirin [Adult Low Dose Aspirin EC] 81 mg PO DAILY PRN 08/26/15 Doxycycline Hyclate 100 mg PO BID 08/26/15 Naproxen Sodium [Aleve] 220 mg PO Q12H PRN PRN 08/26/15 Quetiapine Fumarate [Seroquel] 100 mg PO DAILY 08/26/15 Venlafaxine HCl [Effexor] 150 mg PO DAILY 08/26/15 Surgical History: Surgical History (Last Updated 01/17/19 @ 09:07 by Tg Simons) Stented coronary artery (Chronic) Onset Date: 01/16/19 Z95.5 Global LV systolic dysfunction- Severe, LVEF: by Echogram 15 %; Depressed Left Ventricular systolic function - Severe; Successful PTCA/ALLAN of mid LAD with a 2.5 x 16 Promus Synergy followed immediately upstream with a 2.5 x 38 Promus Synergy, post dilated iwth a 3.5 x 12 NC balloon in proximal 2/3 of stent; 85%-->0%, no dissection or significant plaque shift into DIAGs. Successful PTCA/ALLAN Proximal LAD with a 3.5 x 16 Promus Synergy, post dilated throughout with a 3.5 x 12 NC Balloon; 85%-->0% ,no dissection. Emergent IABP placed for severe LV dysfunction and recent cardiac arrest. Surgical History: - - Patient status post back surgery as well as surgery status post some form of trauma with noted grafting at least to the right lower extremity. Psychiatric History: Depression Lives: Spouse/ Significant Other Smoking Status: Current every day smoker Tobacco Use: Cigarettes Alcohol: None Drugs: None - *Family History Maternal History Items: Unknown - Unable to obtain patient history secondary to intubated, recent cardiac arrest and nonresponsive status. Paternal History Items: Unknown - Unable to obtain patient history secondary to intubated, recent cardiac arrest and nonresponsive status. Review of Systems Unable to obtain accurate/complete ROS d/t: Due to current intubation and mechanical ventilation status Patient Problems: Active and Suspected Problems (Last Updated 01/17/19 @ 09:11 by Tg Simons) ROSSI (acute kidney injury) (Acute) Anoxic brain injury (Suspected) Ischemic cardiomyopathy (Acute) EF 15% per cath post ME and Vfib arrest 01/16/19 Cardiac arrest with ventricular fibrillation (Acute) Acute anterior wall ME (Acute) Cardiac arrest (Acute) Objective: The patient's most recent lab work, culture data and imaging studies have all been personally reviewed. - Physical Exam General: - - Intubated and mechanically ventilated. Currently on ACVC+ and over breathing set rate. HEENT: - - Minimally responsive pupillary reflex. Dry blood noted in nares and oropharynx. Oral: Dry Mucosa, - - Endotracheal and OG tubes in place Neck: Supple, No Nodes, Trachea Midline Lungs: No rhonchi, No wheeze, No rales, Tachypneic Cardiovascular: Regular rate, Regular Rhythm, Normal S1, Normal S2, - - IABP in place. Abdomen: Soft, Non Tender, Hypoactive Bowel Sounds, Obese Extremities: No clubbing, No cyanosis, Cool, - - Trace lower extremity edema Skin: - - Multiple circumscribed excoriations over extremities and trunk Musculoskeletal: No Muscle Wasting Lymphatic: No Cervical, Supraclavicular, or Inguinal Adenopathy Neurological: - - Unresponsive to verbal and noxious stimulation. The patient does initiate his own breaths on spontaneous mode of mechanical ventilation. Vital Signs Temp Pulse Resp BP Pulse Ox 99.8 F H 94 27 H 107/78 87 01/17/19 06:00 01/17/19 06:00 01/17/19 06:00 01/17/19 06:00 01/17/19 06:00 Oxygen Delivery Method Mechanical Ventilator Weight: 240 lb 15.444 oz Body Mass Index (BMI) 33.3 Intake and Output for Last 24 Hours 01/15/19 01/16/19 01/17/19 23:59 23:59 23:59 Intake Total 1114.6 / 1114.6 1178.4 / 1178.4 Output Total 395 / 395 37 / 37 Balance 719.6 / 719.6 1141.4 / 1141.4 Laboratory Tests Past 24 Hrs 01/16/19 01/16/19 01/16/19 17:31 17:31 17:31 WBC 17.9 H RBC 3.94 L Hgb 12.6 L Hct 38.5 L MCV 97.7 H MCH 32.0 MCHC 32.7 RDW 14.6 RDW Differential 51.9 H Plt Count 278 MPV 9.6 Immature Gran % (Auto) 2.200 H Neut % (Auto) 53.3 Lymph % (Auto) 37.6 [place] % (Auto) 5.2 Eos % (Auto) 1.3 Baso % (Auto) 0.4 Absolute Neuts (auto) 9.5 H Absolute Lymphs (auto) 6.71 H Total Counted Not Reportable Nucleated RBC % 0.6 Differential Comment SCANNED Diff Path Review May foll Absolute Retic 0.10 PT 16.3 H INR 1.3 APTT 44.1 H Activated Clotting Time Specimen Type Sample Site pH Bicarbonate Actual POC Total CO2 Base Excess O2 Saturation O2 % ABG pCO2 ABG pO2 Fred Test VBG pH VBG pO2 VBG O2 Sat (Calc) VBG O2 Content VBG Base Excess POC Mix VBG pCO2 Pt Tmp Respiration Rate O2 Delivery Device Minute Volume Vent Mode Tidal Volume POC PEEP Blood Gas Notified Whom Blood Gas Notified Time Sodium 144 Potassium 3.5 Chloride 108 H Carbon Dioxide 21.0 Anion Gap 15 BUN 16 Creatinine 1.57 H Estim Creat Clear Calc Est GFR (MDRD) Af Amer 60 Est GFR (MDRD) Non-Af 49 L BUN/Creatinine Ratio 10.2 Glucose 272 H Calcium 8.6 Magnesium Total Bilirubin Direct Bilirubin AST ALT Alkaline Phosphatase Troponin I 0.463 H Total Protein Albumin Globulin Albumin/Globulin Ratio Triglycerides Cholesterol LDL Cholesterol VLDL Cholesterol HDL Cholesterol 01/16/19 01/16/19 01/16/19 18:00 18:26 18:32 WBC RBC Hgb Hct MCV MCH MCHC RDW RDW Differential Plt Count MPV Immature Gran % (Auto) Neut % (Auto) Lymph % (Auto) [place] % (Auto) Eos % (Auto) Baso % (Auto) Absolute Neuts (auto) Absolute Lymphs (auto) Total Counted Nucleated RBC % Differential Comment Diff Path Review Absolute Retic PT INR APTT Activated Clotting Time 158 H Specimen Type ART ART Sample Site L Femoral R Femoral pH 7.03 L* 7.26 L Bicarbonate Actual 15.9 L 16.8 L POC Total CO2 18 18 Base Excess -15 L -10 L O2 Saturation 99 100 H O2 % 100 100 ABG pCO2 60.2 H 37.5 ABG pO2 179 H 391 H* Fred Test NA NA VBG pH VBG pO2 VBG O2 Sat (Calc) VBG O2 Content VBG Base Excess POC Mix VBG pCO2 Pt Tmp Respiration Rate 26 O2 Delivery Device Ambu Vent Minute Volume 18.00 Vent Mode A-C Tidal Volume 550 POC PEEP 5 Blood Gas Notified Whom ED MD OTHER Blood Gas Notified Time 1751 Sodium Potassium Chloride Carbon Dioxide Anion Gap BUN Creatinine Estim Creat Clear Calc Est GFR (MDRD) Af Amer Est GFR (MDRD) Non-Af BUN/Creatinine Ratio Glucose Calcium Magnesium Total Bilirubin Direct Bilirubin AST ALT Alkaline Phosphatase Troponin I Total Protein Albumin Globulin Albumin/Globulin Ratio Triglycerides Cholesterol LDL Cholesterol VLDL Cholesterol HDL Cholesterol 01/16/19 01/16/19 01/16/19 19:04 19:10 20:55 WBC RBC Hgb Hct MCV MCH MCHC RDW RDW Differential Plt Count MPV Immature Gran % (Auto) Neut % (Auto) Lymph % (Auto) [place] % (Auto) Eos % (Auto) Baso % (Auto) Absolute Neuts (auto) Absolute Lymphs (auto) Total Counted Nucleated RBC % Differential Comment Diff Path Review Absolute Retic PT INR APTT Activated Clotting Time 175 H Specimen Type BONNIE Sample Site pH Bicarbonate Actual POC Total CO2 Base Excess O2 Saturation O2 % ABG pCO2 ABG pO2 Fred Test VBG pH 7.25 L VBG pO2 409 H* VBG O2 Sat (Calc) 100 H VBG O2 Content 22 L VBG Base Excess -6 L POC Mix VBG pCO2 Pt Tmp 48.1 Respiration Rate O2 Delivery Device Minute Volume Vent Mode Tidal Volume POC PEEP Blood Gas Notified Whom Blood Gas Notified Time Sodium Potassium Chloride Carbon Dioxide Anion Gap BUN Creatinine Estim Creat Clear Calc Est GFR (MDRD) Af Amer Est GFR (MDRD) Non-Af BUN/Creatinine Ratio Glucose Calcium Magnesium 1.4 L Total Bilirubin Direct Bilirubin AST ALT Alkaline Phosphatase Troponin I Total Protein Albumin Globulin Albumin/Globulin Ratio Triglycerides Cholesterol LDL Cholesterol VLDL Cholesterol HDL Cholesterol 01/16/19 01/16/19 01/16/19 20:55 20:55 20:55 WBC 38.6 H* RBC 3.88 L Hgb 12.5 L Hct 36.6 L MCV 94.3 H MCH 32.2 H MCHC 34.2 RDW 14.7 H RDW Differential 49.8 H Plt Count 246 MPV 10.0 Immature Gran % (Auto) Neut % (Auto) Lymph % (Auto) [place] % (Auto) Eos % (Auto) Baso % (Auto) Absolute Neuts (auto) Absolute Lymphs (auto) Total Counted Nucleated RBC % Differential Comment SCANNED Diff Path Review May foll Absolute Retic PT INR APTT Activated Clotting Time Specimen Type Sample Site pH Bicarbonate Actual POC Total CO2 Base Excess O2 Saturation O2 % ABG pCO2 ABG pO2 Fred Test VBG pH VBG pO2 VBG O2 Sat (Calc) VBG O2 Content VBG Base Excess POC Mix VBG pCO2 Pt Tmp Respiration Rate O2 Delivery Device Minute Volume Vent Mode Tidal Volume POC PEEP Blood Gas Notified Whom Blood Gas Notified Time Sodium Potassium Chloride Carbon Dioxide Anion Gap BUN Creatinine Estim Creat Clear Calc Est GFR (MDRD) Af Amer Est GFR (MDRD) Non-Af BUN/Creatinine Ratio Glucose Calcium Magnesium Total Bilirubin 0.40 Direct Bilirubin < 0.05 AST 399 H ALT 252 H Alkaline Phosphatase 90 Troponin I 11.900 H* Total Protein 5.3 L Albumin 2.7 L Globulin 2.6 Albumin/Globulin Ratio Triglycerides Cholesterol LDL Cholesterol VLDL Cholesterol HDL Cholesterol 04/24/19 04/24/19 04/24/19 03:15 03:15 03:15 WBC 21.9 H RBC 4.11 L Hgb 13.0 Hct 39.1 L MCV 95.1 H MCH 31.6 MCHC 33.2 RDW 15.2 H RDW Differential 52.3 H Plt Count 384 MPV 9.3 Immature Gran % (Auto) 0.300 Neut % (Auto) 83.1 H Lymph % (Auto) 6.8 L [place] % (Auto) 9.8 Eos % (Auto) 0.0 Baso % (Auto) 0.0 Absolute Neuts (auto) 18.2 H Absolute Lymphs (auto) 1.49 Total Counted Not Reportable Nucleated RBC % 0.3 Differential Comment Diff Path Review May foll Absolute Retic 0.06 PT INR APTT Activated Clotting Time Specimen Type Sample Site pH Bicarbonate Actual POC Total CO2 Base Excess O2 Saturation O2 % ABG pCO2 ABG pO2 Fred Test VBG pH VBG pO2 VBG O2 Sat (Calc) VBG O2 Content VBG Base Excess POC Mix VBG pCO2 Pt Tmp Respiration Rate O2 Delivery Device Minute Volume Vent Mode Tidal Volume POC PEEP Blood Gas Notified Whom Blood Gas Notified Time Sodium 145 Potassium 5.4 H Chloride 107 Carbon Dioxide 23.0 Anion Gap 15 BUN 26 H Creatinine 2.72 H Estim Creat Clear Calc 34.87 Est GFR (MDRD) Af Amer 32 L Est GFR (MDRD) Non-Af 26 L BUN/Creatinine Ratio 9.6 L Glucose 117 H Calcium 7.5 L Magnesium Total Bilirubin 1.20 H Direct Bilirubin AST 2174 H ALT 1649 H Alkaline Phosphatase 84 Troponin I 126.000 H* Total Protein 6.3 L Albumin 3.1 L Globulin 3.2 Albumin/Globulin Ratio 1.0 Triglycerides 64 Cholesterol 170 LDL Cholesterol 112 VLDL Cholesterol 13 HDL Cholesterol 45 01/17/19 01/17/19 03:15 05:34 WBC RBC Hgb Hct MCV MCH MCHC RDW RDW Differential Plt Count MPV Immature Gran % (Auto) Neut % (Auto) Lymph % (Auto) [place] % (Auto) Eos % (Auto) Baso % (Auto) Absolute Neuts (auto) Absolute Lymphs (auto) Total Counted Nucleated RBC % Differential Comment Diff Path Review Absolute Retic PT INR APTT 110.2 H* Activated Clotting Time Specimen Type ART Sample Site L Radial pH 7.40 Bicarbonate Actual 18.8 L POC Total CO2 20 Base Excess -6 L O2 Saturation 99 O2 % 50 ABG pCO2 30.3 L ABG pO2 158 H Fred Test NA VBG pH VBG pO2 VBG O2 Sat (Calc) VBG O2 Content VBG Base Excess POC Mix VBG pCO2 Pt Tmp Respiration Rate 12 O2 Delivery Device Vent Minute Volume 12.00 Vent Mode A-C Tidal Volume 450 POC PEEP 5 Blood Gas Notified Whom [facility] Blood Gas Notified Time Sodium Potassium Chloride Carbon Dioxide Anion Gap BUN Creatinine Estim Creat Clear Calc Est GFR (MDRD) Af Amer Est GFR (MDRD) Non-Af BUN/Creatinine Ratio Glucose Calcium Magnesium Total Bilirubin Direct Bilirubin AST ALT Alkaline Phosphatase Troponin I Total Protein Albumin Globulin Albumin/Globulin Ratio Triglycerides Cholesterol LDL Cholesterol VLDL Cholesterol HDL Cholesterol POC Glucose 01/17/19 01/16/19 02:07 23:03 POC Glucose 83 122 H Clinical Impression(s) from Imaging Studies KUB X-Ray 01/16/19 18:05 IMPRESSION: Nonvisualization of orogastric tube within the upper abdomen.. Repeat film with better positioning recommended for further evaluation Electronically Signed: Dave Dodson MD at 19:04 EDT , Service support , KUB X-Ray 01/16/19 20:30 IMPRESSION: NG tube present with tip in proximal gastric fundus Electronically Signed: Dave Dodson MD at 20:58 EDT , Service support , Chest X-Ray 01/17/19 05:07 IMPRESSION: Lines as above. No pulmonary edema, congestive heart failure or confluent pneumonia. Electronically Signed: Amber Mcdonald MD at 5:38 EDT , Service support , Assessment/Plan Active and Suspected Problems (Last Updated 01/17/19 @ 09:11 by Tg Simons) ROSSI (acute kidney injury) (Acute) Anoxic brain injury (Suspected) Ischemic cardiomyopathy (Acute) EF 15% per cath post ME and Vfib arrest 01/16/19 Cardiac arrest with ventricular fibrillation (Acute) Acute anterior wall ME (Acute) Cardiac arrest (Acute) RECOMMENDATIONS: 1. Obtain blood, urine and sputum cultures. Start broad-spectrum antimicrobials. 2. Discontinue acetaminophen, given acute liver injury. 3. Discontinue IV morphine, given acute kidney injury. 4. Await repeat echocardiogram from this morning. 5. Continue primary cardiac medical management and intra-aortic balloon pump, per cardiology recommendations. 6. Obtain neurology consultation to assist with prognostication, given concerns for anoxic brain injury. 7. Consultation to nephrology for acute kidney injury. 8. Discontinue bicarbonate infusion. 9. Discontinue all potentially sedating medications, including fentanyl. 10. Advance endotracheal tube 2 cm. 11. Transition patient to ACVC+ mode of mechanical ventilation. 12. Check ammonia level. 13. Place PICC line and remove I/O access. IMPRESSIONS: 1. Out of hospital cardiac arrest/STEMI/coronary artery disease status post PCI w/ ALLAN x 2/acute systolic heart failure The patient presented with an out of hospital V. fib cardiac arrest. He was subsequently found to have a STEMI and underwent cardiac catheterization with drug-eluting stent placement x2 to his LAD. He has evidence of acute systolic heart failure with an intra-aortic balloon pump in place. We will continue current supportive measures per cardiology recommendations. 2. Acute respiratory failure The patient was emergently intubated in the setting of #1. Arterial blood gas from this morning appears appropriate. I will change the patient over to ACVC+ mode of mechanical ventilation. Endotracheal tube will be advanced by 2 cm. Will consider initiation of tube feeds today. Stop continuous supplemental IV fluids. 3. Acute kidney injury/hyperkalemia Likely secondary to ischemic ATN in the setting of #1. The patient is essentially an uric at this time. He has not responded to IV Lasix overnight. Consultation has been placed to nephrology to assist with management. Continuous bicarbonate infusion has been discontinued. 4. Acute liver injury Again, likely secondary to hemodynamic instability in the setting of #1. We will continue current supportive measures and attempt to maintain hemodynamic stability. Anticipate improvement with time. Discontinue acetaminophen and amiodarone, given hepatic impairment. 5. Encephalopathy Clinical concern for potential anoxic brain injury. The patient did have a prolonged downtime. At this time, however, it is too early to prognosticate. We will plan to continue current supportive measures for patient and will reevaluate the patient's neurological status at the 72-hour time kim. In the interim, we will continue to withhold all potential sedating medications. We will also plan to check a serum ammonia level, given the patient's hepatic injury. Neurology has been consulted accordingly. 6. Hypomagnesemia Electrolyte repletion as ordered. Recheck levels in the morning. TIME: 60 minutes of critical care time, independent of procedures, was spent addres sing the patient's ischemic cardiomyopathy status post PCI, acute systolic heart failure, acute respiratory failure, acute kidney injury, acute liver injury, encephalopathy, review of all data and collaboration with the care team. ([id number]) Code Visit [id number]: [id number] Critical care first hour
[2019-01-17 07:06] LABS: Bedside Glucose 69 mg/dL (70-110)
[2019-01-17] MEDS: Dextrose 50%-Water 25 GM/50 ML DISP.SYRIN IV (07:22)
[2019-01-17] MEDS: Dext 5%-0.45% NS 1,000 ML 100 ML IV (07:35)
--- NOTE | 2019-01-17 08:00 | PCM.PN.HOSP ---
Patient Problems: Active and Suspected Problems Cardiac arrest with ventricular fibrillation (Acute) Acute anterior wall WA (Acute) Cardiac arrest (Acute) Subjective: Patient is a 53-year-old gentleman who was brought to the emergency department after experiencing cardiac arrest outside the hospital. There was apparently initiated by bystanders EMS noted V. fib patient was brought to the emergency department successfully resuscitated using ACLS protocol with ROS C. Patient was noted to have acute STEMI and underwent emergency left heart catheterization found to have severe cardiomyopathy with an ejection fraction of 15% patient had PTCA/ALLAN to mid and proximal lesions. An IABP was inserted and patient subsequently transferred to the intensive care unit Objective: GENERAL: Unresponsive on the vent HEENT: Atraumatic; moist oral mucosa EYES; Anicteric, Normal Conjunctiva NECK; supple, normal thyroid, RESPIRATORY: Diminished to auscultation bilaterally, CARDIOVASCULAR: Regular S1 S2, GI: soft, non-tender, normoactive bowel sounds, EXTREMITIES: edema, no clubbing, no cyanosis. NEURO: Unresponsive on the vent SKIN: Multiple healing scabs on both upper extremities and lower extremities as well as trunk PSYCH; unable to assess Vitals/I&O's: Vital Signs Temp Pulse Resp BP Pulse Ox 100.0 F H 100 34 H 119/70 98 01/17/19 07:00 01/17/19 07:00 01/17/19 07:00 01/17/19 07:00 01/17/19 07:00 Oxygen Delivery Method Mechanical Ventilator Weight: 109.3 kg Body Mass Index (BMI) 33.3 Intake and Output for Last 24 Hours 01/15/19 01/16/19 01/17/19 23:59 23:59 23:59 Intake Total 1114.6 / 1114.6 1327.3 / 1327.3 Output Total 395 / 395 37 / 37 Balance 719.6 / 719.6 1290.3 / 1290.3 Laboratory Results 01/16/19 17:31: WBC 17.9 H, RBC 3.94 L, Hgb 12.6 L, Hct 38.5 L, MCV 97.7 H, MCH 32.0, MCHC 32.7, RDW 14.6, RDW Differential 51.9 H, Plt Count 278, MPV 9.6, Immature Gran % (Auto) 2.200 H, Neut % (Auto) 53.3, Lymph % (Auto) 37.6, [place] % (Auto) 5.2, Eos % (Auto) 1.3, Baso % (Auto) 0.4, Absolute Neuts (auto) 9.5 H, Absolute Lymphs (auto) 6.71 H, Total Counted Not Reportable, Nucleated RBC % 0.6, Differential Comment SCANNED, Diff Path Review January, Absolute Retic 0.10 01/16/19 17:31: PT 16.3 H, INR 1.3, APTT 44.1 H 01/16/19 17:31: Sodium 144, Potassium 3.5, Chloride 108 H, Carbon Dioxide 21.0, Anion Gap 15, BUN 16, Creatinine 1.57 H, Est GFR (MDRD) Af Amer 60, Est GFR (MDRD) Non-Af 49 L, BUN/Creatinine Ratio 10.2, Glucose 272 H, Calcium 8.6, Troponin I 0.463 H 01/16/19 18:00: Specimen Type ART, Sample Site L Femoral, pH 7.03 L*, Bicarbonate Actual 15.9 L, POC Total CO2 18, Base Excess -15 L, O2 Saturation 99, O2 % 100, ABG pCO2 60.2 H, ABG pO2 179 H, Fred Test NA, O2 Delivery Device Ambu, Blood Gas Notified Whom ED , Blood Gas Notified Time 175001/16/19 18:26: Activated Clotting Time 158 H 01/16/19 18:32: Specimen Type ART, Sample Site R Femoral, pH 7.26 L, Bicarbonate Actual 16.8 L, POC Total CO2 18, Base Excess -10 L, O2 Saturation 100 H, O2 % 100, ABG pCO2 37.5, ABG pO2 391 H*, Fred Test NA, Respiration Rate 26, O2 Delivery Device Vent, Minute Volume 18.00, Vent Mode A-C, Tidal Volume 550, POC PEEP 5, Blood Gas Notified Whom OTHER 01/16/19 19:04: Activated Clotting Time 175 H 01/16/19 19:10: Specimen Type BONNIE, VBG pH 7.25 L, VBG pO2 409 H*, VBG O2 Sat (Calc) 100 H, VBG O2 Content 22 L, VBG Base Excess -6 L, POC Mix VBG pCO2 Pt Tmp 48.1 01/16/19 20:55: Magnesium 1.4 L 01/16/19 20:55: WBC 38.6 H*, RBC 3.88 L, Hgb 12.5 L, Hct 36.6 L, MCV 94.3 H, MCH 32.2 H, MCHC 34.2, RDW 14.7 H, RDW Differential 49.8 H, Plt Count 246, MPV 10.0, Differential Comment SCANNED, Diff Path Review January foll 01/16/19 20:55: Troponin I 11.900 H* 01/16/19 20:55: Total Bilirubin 0.40, Direct Bilirubin < 0.05, AST 399 H, ALT 252 H, Alkaline Phosphatase 90, Total Protein 5.3 L, Albumin 2.7 L, Globulin 2.6 01/16/19 23:03: POC Glucose 122 H 01/17/19 02:07: POC Glucose 83 01/17/19 03:15: WBC 21.9 H, RBC 4.11 L, Hgb 13.0, Hct 39.1 L, MCV 95.1 H, MCH 31.6, MCHC 33.2, RDW 15.2 H, RDW Differential 52.3 H, Plt Count 384, MPV 9.3, Immature Gran % (Auto) 0.300, Neut % (Auto) 83.1 H, Lymph % (Auto) 6.8 L, [place] % (Auto) 9.8, Eos % (Auto) 0.0, Baso % (Auto) 0.0, Absolute Neuts (auto) 18.2 H, Absolute Lymphs (auto) 1.49, Total Counted Not Reportable, Nucleated RBC % 0.3, Diff Path Review January, Absolute Retic 0.06 01/17/19 03:15: Sodium 145, Potassium 5.4 H, Chloride 107, Carbon Dioxide 23.0, Anion Gap 15, BUN 26 H, Creatinine 2.72 H, Estim Creat Clear Calc 34.87, Est GFR (MDRD) Af Amer 32 L, Est GFR (MDRD) Non-Af 26 L, BUN/Creatinine Ratio 9.6 L, Glucose 117 H, Calcium 7.5 L, Total Bilirubin 1.20 H, AST 2174 H, ALT 1649 H, Alkaline Phosphatase 84, Total Protein 6.3 L, Albumin 3.1 L, Globulin 3.2, Albumin/Globulin Ratio 1.0, Triglycerides 64, Cholesterol 170, LDL Cholesterol 112, VLDL Cholesterol 13, HDL Cholesterol 45 01/17/19 03:15: Troponin I 126.000 H* 01/17/19 03:15: APTT 110.2 H* 01/17/19 05:34: Specimen Type ART, Sample Site L Radial, pH 7.40, Bicarbonate Actual 18.8 L, POC Total CO2 20, Base Excess -6 L, O2 Saturation 99, O2 % 50, ABG pCO2 30.3 L, ABG pO2 158 H, Fred Test NA, Respiration Rate 12, O2 Delivery Device Vent, Minute Volume 12.00, Vent Mode A-C, Tidal Volume 450, POC PEEP 5, Blood Gas Notified Whom HOSP 01/17/19 06:58: POC Glucose 69 L Current Medications Albuterol Sulfate (Ventolin Aerosols) 2.5 mg INHALATION Q2H PRN PRN PRN Reason: dyspnea, wheezing Aspirin (Ecotrin) 81 mg PO DAILY@0800 [facility] Atorvastatin Calcium (Lipitor) 80 mg PO QHS [facility] Last Admin: 01/16/19 23:38 Dose: 80 mg Atropine Sulfate () 0.5 mg IV UD PRN PRN Reason: HR <50 bpm Chlorhexidine Gluconate () 15 ml PO BID [facility] Last Admin: 01/16/19 22:15 Dose: 15 ml Famotidine (Pepcid) 20 mg GT BID [facility] Last Admin: 01/16/19 23:38 Dose: 20 mg Furosemide (Lasix) 40 mg IV DAILY [facility] Heparin Sodium (Beef Lung) (Heparin 500 Unit/5 Ml (100/Ml)) 500 unit IV UD PRN PRN Reason: HEPARIN FLUSH Heparin Sodium (Porcine) (Heparin Na) 0 unit IV UD PRN; Protocol Heparin Sodium/Sodium Chloride () 2,000 units IV UD [facility] Last Admin: 01/16/19 21:02 Dose: 2,000 units Hydralazine HCl (Apresoline Iv) 10 mg IV Q4H PRN PRN PRN Reason: SBP > 160 Eptifibatide (Integrilin) 75 mg in 100 mls @ 16.692 mls/hr CONT INF .Q6H [facility] Last Admin: 01/17/19 03:12 Dose: 16.692 mls/hr Heparin Sodium/Dextrose () 25,000 units in 250 mls @ 15 mls/hr IV .[id number] [facility]; Protocol Last Admin: 01/16/19 21:15 Dose: 15 mls/hr Sodium Bicarbonate 150 meq/ (Dextrose) 1,150 mls @ 100 mls/hr IV .[id number] KECIA Last Admin: 01/17/19 04:18 Dose: 100 mls/hr Sodium Chloride () 250 mls @ 15 mls/hr IV .[id number] PRN PRN Reason: SALINE FLUSH Last Admin: 01/17/19 01:23 Dose: 15 mls/hr Piperacillin Sod/Tazobactam (Sod 3.375 gm/ Sodium Chloride) 50 mls @ 12.5 mls/hr IV Q8 KECIA Last Admin: 01/17/19 06:16 Dose: 12.5 mls/hr Magnesium Sulfate 2 gm/ Sodium (Chloride) 104 mls @ 52 mls/hr IV X1 ONE Stop: 01/17/19 09:59 Dextrose/Sodium Chloride () 1,000 mls @ 100 mls/hr IV .Q10H [facility] Labetalol HCl (Trandate) 5 mg IV X1 PRN PRN Reason: SBP > 160 when pulling sheath Magnesium Hydroxide (Milk Of Magnesia) 30 ml PO DAILY PRN PRN PRN Reason: Constipation Nitroglycerin (Nitrostat) 0.4 mg SUBLINGUAL Q5M PRN PRN Reason: CARDIAC/CHEST PAIN Sodium Chloride () 500 ml IV BOLUS PRN PRN Reason: VASO-VAGAL PROTOCOL Sodium Chloride () 5 - 15 ml IV UD PRN PRN Reason: SALINE FLUSH Ticagrelor (Brilinta) 90 mg PO BID [facility] Medical Necessity - Tobacco Use Smoking Status: Current every day smoker Tobacco Use: Cigarettes Assessment/Plan All Active Problems Cardiac arrest with ventricular fibrillation (Acute) Acute anterior wall [place] (Acute) Cardiac arrest (Acute) Patient is a 53-year-old gentleman who was brought to the emergency department after experiencing cardiac arrest outside the hospital. There was apparently initiated by bystanders EMS noted V. fib patient was brought to the emergency department successfully resuscitated using ACLS protocol with ROS C. Patient was noted to have acute STEMI and underwent emergency left heart catheterization found to have severe cardiomyopathy with an ejection fraction of 15% patient had PTCA/ALLAN to mid and proximal lesions. An IABP was inserted and patient subsequently transferred to the intensive care unit 1. Acute anterior ST segment elevation WA. Patient presented with sustained V. fib and cardiac arrest successfully resuscitated using ACLS protocol with ESTELLE Taylor. Patient was noted to have acute STEMI and underwent emergency left heart catheterization found to have severe cardiomyopathy with an ejection fraction of 15% patient had PTCA/ALLAN to mid and proximal lesions 2. Ischemic cardiomyopathy an IABP was inserted admitted to the intensive care unit subsequently 3. Acute respiratory failure secondary to above patient was intubated prior to being admitted to the intensive care unit management of vent deferred to intensive care team 4. Suspected acute anoxic encephalopathy consultation has been placed to neurology 5. Acute kidney injury from ATN following patient cardiac arrest on fluids with consultation placed to nephrology 6. Acute transaminitis from shock liver 7. Acute metabolic acidosis from patient's cardiac arrest. Patient did receive bicarb 8. Morbid obesity with BMI of 32.7 9. Chronic back pain per history 10. Tobacco dependence 11. DVT prophylaxis patient is on heparin Active Medications Albuterol Sulfate (Ventolin Aerosols) 2.5 mg INHALATION Q2H PRN PRN PRN Reason: dyspnea, wheezing Aspirin (Ecotrin) 81 mg PO DAILY@0800 [facility] Atorvastatin Calcium (Lipitor) 80 mg PO QHS [facility] Last Admin: 01/16/19 23:38 Dose: 80 mg Atropine Sulfate () 0.5 mg IV UD PRN PRN Reason: HR <50 bpm Chlorhexidine Gluconate () 15 ml PO BID [facility] Last Admin: 01/16/19 22:15 Dose: 15 ml Famotidine (Pepcid) 20 mg GT BID [facility] Last Admin: 01/16/19 23:38 Dose: 20 mg Furosemide (Lasix) 40 mg IV DAILY [facility] Heparin Sodium (Beef Lung) (Heparin 500 Unit/5 Ml (100/Ml)) 500 unit IV UD PRN PRN Reason: HEPARIN FLUSH Heparin Sodium (Porcine) (Heparin Na) 0 unit IV UD PRN; Protocol Heparin Sodium/Sodium Chloride () 2,000 units IV UD [facility] Last Admin: 01/16/19 21:02 Dose: 2,000 units Hydralazine HCl (Apresoline Iv) 10 mg IV Q4H PRN PRN PRN Reason: SBP > 160 Eptifibatide (Integrilin) 75 mg in 100 mls @ 16.692 mls/hr CONT INF .Q6H [facility] Last Admin: 01/17/19 03:12 Dose: 16.692 mls/hr Heparin Sodium/Dextrose () 25,000 units in 250 mls @ 15 mls/hr IV .[id number] [facility]; Protocol Last Admin: 01/16/19 21:15 Dose: 15 mls/hr Sodium Bicarbonate 150 meq/ (Dextrose) 1,150 mls @ 100 mls/hr IV .[id number] KECIA Last Admin: 01/17/19 04:18 Dose: 100 mls/hr Sodium Chloride () 250 mls @ 15 mls/hr IV .[id number] PRN PRN Reason: SALINE FLUSH Last Admin: 01/17/19 01:23 Dose: 15 mls/hr Piperacillin Sod/Tazobactam (Sod 3.375 gm/ Sodium Chloride) 50 mls @ 12.5 mls/hr IV Q8 [facility]ECIA Last Admin: 01/17/19 06:16 Dose: 12.5 mls/hr Magnesium Sulfate 2 gm/ Sodium (Chloride) 104 mls @ 52 mls/hr IV X1 ONE Stop: 01/17/19 09:59 Dextrose/Sodium Chloride () 1,000 mls @ 100 mls/hr IV .Q10H [facility] Labetalol HCl (Trandate) 5 mg IV X1 PRN PRN Reason: SBP > 160 when pulling sheath Magnesium Hydroxide (Milk Of Magnesia) 30 ml PO DAILY PRN PRN PRN Reason: Constipation Nitroglycerin (Nitrostat) 0.4 mg SUBLINGUAL Q5M PRN PRN Reason: CARDIAC/CHEST PAIN Sodium Chloride () 500 ml IV BOLUS PRN PRN Reason: VASO-VAGAL PROTOCOL Sodium Chloride () 5 - 15 ml IV UD PRN PRN Reason: SALINE FLUSH Ticagrelor (Brilinta) 90 mg PO BID [facility] Code Visit Inpatient E&M: 59921 [facility]
[2019-01-17 08:55] LABS: Bedside Glucose 115 mg/dL (70-110)
--- NOTE | 2019-01-17 09:49 | CASEMGMT ---
SW participated in ICU rounds, asked RN to let SW know should family be in to visit. SW called the financial dept, pt does have Medicare part A and in the past has had worker's comp. ANGELINE Marcos
--- NOTE | 2019-01-17 10:00 | EKG12_ITS ---
Test Reason : AM Blood Pressure : / mmHG Vent. Rate : 093 BPM Atrial Rate : 093 BPM P-R Int : 134 ms QRS Dur : 084 ms QT Int : 404 ms P-R-T Axes : -11 100 047 degrees QTc Int : 502 ms Normal sinus rhythm Nonspecific ST abnormality Prolonged QT Abnormal ECG Confirmed by TYRON CEVALLOS, MARIN ([id number]), assistant film editor MANAV CASIANO ([id number]) on 01/22/2019 12:37:42 PM Referred By: Junior Martini Confirmed By:MARIN ACKERMAN MD
--- NOTE | 2019-01-17 10:04 | PCM.CONS.GEN ---
Problem List (1) Anoxic brain injury Status: Suspected Reason for Consult Date of Consultation: 01/17/19 Reason for Consultation: possible anoxic brain injury post cardiac arrest History of Present Illness: The patient is a 53 year old M with PMH tobacco abuse, depression, obesity, chronic pain admitted status post cardiac arrest. History cannot be obtained from the patient as he is intubated and is obtained from the medical records and documentation. Per ED and hospitalist documentation patient was with her girlfriend yesterday 01/16/2019 when he collapsed, CPR was initiated immediately was found to be in V. fib arrest, ACLS protocol was followed per documentation, was intubated in the ED, found to have STEMI for which patient underwent cardiac catheterization with stent placement in the LAD, currently is on aspirin/Brilinta and heparin drip, continues to be comatose, pupils are reactive at present, has weak gag corneal and conjunctival reflex. No documented weakness seizures. [] Past Medical History Past Medical History (Chronic Problems): Chronic Problems (Last Updated 01/17/19 @ 09:11 by Tg Simons) Arteriosclerosis of coronary artery in patient with history of myocardial infarction (Chronic) STEMI, VFib arrest, coronary stents to LAD X 2 01/16/19 Stented coronary artery (Chronic 01/16/19) Global LV systolic dysfunction- Severe, LVEF: by Echogram 15 %; Depressed Left Ventricular systolic function - Severe; Successful PTCA/ALLAN of mid LAD with a 2.5 x 16 Promus Synergy followed immediately upstream with a 2.5 x 38 Promus Synergy, post dilated iwth a 3.5 x 12 NC balloon in proximal 2/3 of stent; 85%-->0%, no dissection or significant plaque shift into DIAGs. Successful PTCA/ALLAN Proximal LAD with a 3.5 x 16 Promus Synergy, post dilated throughout with a 3.5 x 12 NC Balloon; 85%-->0% ,no dissection. Emergent IABP placed for severe LV dysfunction and recent cardiac arrest. Tobacco abuse (Chronic) Chronic back pain (Chronic) Obesity (Chronic) Depression (Chronic) Medical History: Medical History (Last Updated 01/17/19 @ 09:11 by Tg Simons) Ischemic cardiomyopathy (Acute) I25.5 EF 15% per cath post MN and Vfib arrest 01/16/19 Arteriosclerosis of coronary artery in patient with history of myocardial infarction (Chronic) I25.10, I25.2 STEMI, VFib arrest, coronary stents to LAD X 2 01/16/19 Cardiac arrest with ventricular fibrillation (Acute) I46.9, I49.01 Acute anterior wall MN (Acute) I21.09 Cardiac arrest (Acute) I46.9 Tobacco abuse (Chronic) Z72.0 Allergies No Known Allergies Allergy (Verified 08/26/15 11:39) Home Medications: Ambulatory Orders Medication Instructions Recorded Aspirin [Adult Low Dose Aspirin EC] 81 mg PO DAILY PRN 08/26/15 Doxycycline Hyclate 100 mg PO BID 08/26/15 Naproxen Sodium [Aleve] 220 mg PO Q12H PRN PRN 08/26/15 Quetiapine Fumarate [Seroquel] 100 mg PO DAILY 08/26/15 Venlafaxine HCl [Effexor] 150 mg PO DAILY 08/26/15 Surgical History: Surgical History (Last Updated 01/17/19 @ 09:07 by Tg Simons) Stented coronary artery (Chronic) Onset Date: 01/16/19 Z95.5 Global LV systolic dysfunction- Severe, LVEF: by Echogram 15 %; Depressed Left Ventricular systolic function - Severe; Successful PTCA/ALLAN of mid LAD with a 2.5 x 16 Promus Synergy followed immediately upstream with a 2.5 x 38 Promus Synergy, post dilated iwth a 3.5 x 12 NC balloon in proximal 2/3 of stent; 85%-->0%, no dissection or significant plaque shift into DIAGs. Successful PTCA/ALLAN Proximal LAD with a 3.5 x 16 Promus Synergy, post dilated throughout with a 3.5 x 12 NC Balloon; 85%-->0% ,no dissection. Emergent IABP placed for severe LV dysfunction and recent cardiac arrest. Surgical History: - - Patient status post back surgery as well as surgery status post some form of trauma with noted grafting at least to the right lower extremity. Psychiatric History: Depression Lives: Spouse/ Significant Other Smoking Status: Current every day smoker Tobacco Use: Cigarettes Alcohol: None Drugs: None - *Family History Maternal History Items: Unknown - Unable to obtain patient history secondary to intubated, recent cardiac arrest and nonresponsive status. Paternal History Items: Unknown - Unable to obtain patient history secondary to intubated, recent cardiac arrest and nonresponsive status. Review of Systems Constitutional: Reports: - - ROS could not be obtained as patient is intubated Patient Problems: Active and Suspected Problems (Last Updated 01/17/19 @ 09:11 by Tg Simons) ROSSI (acute kidney injury) (Acute) Anoxic brain injury (Suspected) Ischemic cardiomyopathy (Acute) EF 15% per cath post MN and Vfib arrest 01/16/19 Cardiac arrest with ventricular fibrillation (Acute) Acute anterior wall MN (Acute) Cardiac arrest (Acute) - Physical Exam General: - - comatose HEENT: Normocephalic Neck: Supple Lungs: Normal air movement Cardiovascular: Normal S1, Normal S2 Abdomen: Bowel Sounds Present Extremities: No cyanosis Neurological: - - comatose, limited neurology examination, s/p intubation, no response to DPS, but intermittent spontaneous eye opening seen, pupils B/L 2 mm reacting to light, gag reflex present, weak corneal/conjuctival reflex present, cerebellar/sensory/gait cannot be assessed, Reflexes + B/L B/S/T/K/A. Vital Signs Temp Pulse Resp BP Pulse Ox 100.0 F H 98 34 H 119/70 98 01/17/19 07:00 01/17/19 08:04 01/17/19 07:00 01/17/19 07:00 01/17/19 07:00 Oxygen Delivery Method Mechanical Ventilator Weight: 109.3 kg Body Mass Index (BMI) 33.3 Intake and Output for Last 24 Hours 01/15/19 01/16/19 01/17/19 23:59 23:59 23:59 Intake Total 1114.6 / 1114.6 1327.3 / 1327.3 Output Total 395 / 395 52 / 52 Balance 719.6 / 719.6 1275.3 / 1275.3 Laboratory Tests Past 24 Hrs 01/16/19 01/16/19 01/16/19 17:31 17:31 17:31 WBC 17.9 H RBC 3.94 L Hgb 12.6 L Hct 38.5 L MCV 97.7 H MCH 32.0 MCHC 32.7 RDW 14.6 RDW Differential 51.9 H Plt Count 278 MPV 9.6 Immature Gran % (Auto) 2.200 H Neut % (Auto) 53.3 Lymph % (Auto) 37.6 [place] % (Auto) 5.2 Eos % (Auto) 1.3 Baso % (Auto) 0.4 Absolute Neuts (auto) 9.5 H Absolute Lymphs (auto) 6.71 H Total Counted Not Reportable Nucleated RBC % 0.6 Differential Comment SCANNED Diff Path Review May foll Absolute Retic 0.10 PT 16.3 H INR 1.3 APTT 44.1 H Activated Clotting Time Specimen Type Sample Site pH Bicarbonate Actual POC Total CO2 Base Excess O2 Saturation O2 % ABG pCO2 ABG pO2 Fred Test VBG pH VBG pO2 VBG O2 Sat (Calc) VBG O2 Content VBG Base Excess POC Mix VBG pCO2 Pt Tmp Respiration Rate O2 Delivery Device Minute Volume Vent Mode Tidal Volume POC PEEP Blood Gas Notified Whom Blood Gas Notified Time Sodium 144 Potassium 3.5 Chloride 108 H Carbon Dioxide 21.0 Anion Gap 15 BUN 16 Creatinine 1.57 H Estim Creat Clear Calc Est GFR (MDRD) Af Amer 60 Est GFR (MDRD) Non-Af 49 L BUN/Creatinine Ratio 10.2 Glucose 272 H Calcium 8.6 Magnesium Total Bilirubin Direct Bilirubin AST ALT Alkaline Phosphatase Ammonia Troponin I 0.463 H Total Protein Albumin Globulin Albumin/Globulin Ratio Triglycerides Cholesterol LDL Cholesterol VLDL Cholesterol HDL Cholesterol MRSA (PCR) 01/16/19 01/16/19 01/16/19 18:00 18:26 18:32 WBC RBC Hgb Hct MCV MCH MCHC RDW RDW Differential Plt Count MPV Immature Gran % (Auto) Neut % (Auto) Lymph % (Auto) [place] % (Auto) Eos % (Auto) Baso % (Auto) Absolute Neuts (auto) Absolute Lymphs (auto) Total Counted Nucleated RBC % Differential Comment Diff Path Review Absolute Retic PT INR APTT Activated Clotting Time 158 H Specimen Type ART ART Sample Site L Femoral R Femoral pH 7.03 L* 7.26 L Bicarbonate Actual 15.9 L 16.8 L POC Total CO2 18 18 Base Excess -15 L -10 L O2 Saturation 99 100 H O2 % 100 100 ABG pCO2 60.2 H 37.5 ABG pO2 179 H 391 H* Fred Test NA NA VBG pH VBG pO2 VBG O2 Sat (Calc) VBG O2 Content VBG Base Excess POC Mix VBG pCO2 Pt Tmp Respiration Rate 26 O2 Delivery Device Ambu Vent Minute Volume 18.00 Vent Mode A-C Tidal Volume 550 POC PEEP 5 Blood Gas Notified Whom ED OTHER Blood Gas Notified Time 1751 Sodium Potassium Chloride Carbon Dioxide Anion Gap BUN Creatinine Estim Creat Clear Calc Est GFR (MDRD) Af Amer Est GFR (MDRD) Non-Af BUN/Creatinine Ratio Glucose Calcium Magnesium Total Bilirubin Direct Bilirubin AST ALT Alkaline Phosphatase Ammonia Troponin I Total Protein Albumin Globulin Albumin/Globulin Ratio Triglycerides Cholesterol LDL Cholesterol VLDL Cholesterol HDL Cholesterol MRSA (PCR) 01/16/19 01/16/19 01/16/19 19:04 19:10 20:55 WBC RBC Hgb Hct MCV MCH MCHC RDW RDW Differential Plt Count MPV Immature Gran % (Auto) Neut % (Auto) Lymph % (Auto) [place] % (Auto) Eos % (Auto) Baso % (Auto) Absolute Neuts (auto) Absolute Lymphs (auto) Total Counted Nucleated RBC % Differential Comment Diff Path Review Absolute Retic PT INR APTT Activated Clotting Time 175 H Specimen Type BONNIE Sample Site pH Bicarbonate Actual POC Total CO2 Base Excess O2 Saturation O2 % ABG pCO2 ABG pO2 Fred Test VBG pH 7.25 L VBG pO2 409 H* VBG O2 Sat (Calc) 100 H VBG O2 Content 22 L VBG Base Excess -6 L POC Mix VBG pCO2 Pt Tmp 48.1 Respiration Rate O2 Delivery Device Minute Volume Vent Mode Tidal Volume POC PEEP Blood Gas Notified Whom Blood Gas Notified Time Sodium Potassium Chloride Carbon Dioxide Anion Gap BUN Creatinine Estim Creat Clear Calc Est GFR (MDRD) Af Amer Est GFR (MDRD) Non-Af BUN/Creatinine Ratio Glucose Calcium Magnesium 1.4 L Total Bilirubin Direct Bilirubin AST ALT Alkaline Phosphatase Ammonia Troponin I Total Protein Albumin Globulin Albumin/Globulin Ratio Triglycerides Cholesterol LDL Cholesterol VLDL Cholesterol HDL Cholesterol MRSA (PCR) 01/16/19 01/16/19 01/16/19 20:55 20:55 20:55 WBC 38.6 H* RBC 3.88 L Hgb 12.5 L Hct 36.6 L MCV 94.3 H MCH 32.2 H MCHC 34.2 RDW 14.7 H RDW Differential 49.8 H Plt Count 246 MPV 10.0 Immature Gran % (Auto) Neut % (Auto) Lymph % (Auto) [place] % (Auto) Eos % (Auto) Baso % (Auto) Absolute Neuts (auto) Absolute Lymphs (auto) Total Counted Nucleated RBC % Differential Comment SCANNED Diff Path Review May foll Absolute Retic PT INR APTT Activated Clotting Time Specimen Type Sample Site pH Bicarbonate Actual POC Total CO2 Base Excess O2 Saturation O2 % ABG pCO2 ABG pO2 Fred Test VBG pH VBG pO2 VBG O2 Sat (Calc) VBG O2 Content VBG Base Excess POC Mix VBG pCO2 Pt Tmp Respiration Rate O2 Delivery Device Minute Volume Vent Mode Tidal Volume POC PEEP Blood Gas Notified Whom Blood Gas Notified Time Sodium Potassium Chloride Carbon Dioxide Anion Gap BUN Creatinine Estim Creat Clear Calc Est GFR (MDRD) Af Amer Est GFR (MDRD) Non-Af BUN/Creatinine Ratio Glucose Calcium Magnesium Total Bilirubin 0.40 Direct Bilirubin < 0.05 AST 399 H ALT 252 H Alkaline Phosphatase 90 Ammonia Troponin I 11.900 H* Total Protein 5.3 L Albumin 2.7 L Globulin 2.6 Albumin/Globulin Ratio Triglycerides Cholesterol LDL Cholesterol VLDL Cholesterol HDL Cholesterol MRSA (PCR) 01/17/19 01/17/19 01/17/19 03:15 03:15 03:15 WBC 21.9 H RBC 4.11 L Hgb 13.0 Hct 39.1 L MCV 95.1 H MCH 31.6 MCHC 33.2 RDW 15.2 H RDW Differential 52.3 H Plt Count 384 MPV 9.3 Immature Gran % (Auto) 0.300 Neut % (Auto) 83.1 H Lymph % (Auto) 6.8 L [place] % (Auto) 9.8 Eos % (Auto) 0.0 Baso % (Auto) 0.0 Absolute Neuts (auto) 18.2 H Absolute Lymphs (auto) 1.49 Total Counted Not Reportable Nucleated RBC % 0.3 Differential Comment Diff Path Review May foll Absolute Retic 0.06 PT INR APTT Activated Clotting Time Specimen Type Sample Site pH Bicarbonate Actual POC Total CO2 Base Excess O2 Saturation O2 % ABG pCO2 ABG pO2 Fred Test VBG pH VBG pO2 VBG O2 Sat (Calc) VBG O2 Content VBG Base Excess POC Mix VBG pCO2 Pt Tmp Respiration Rate O2 Delivery Device Minute Volume Vent Mode Tidal Volume POC PEEP Blood Gas Notified Whom Blood Gas Notified Time Sodium 145 Potassium 5.4 H Chloride 107 Carbon Dioxide 23.0 Anion Gap 15 BUN 26 H Creatinine 2.72 H Estim Creat Clear Calc 34.87 Est GFR (MDRD) Af Amer 32 L Est GFR (MDRD) Non-Af 26 L BUN/Creatinine Ratio 9.6 L Glucose 117 H Calcium 7.5 L Magnesium Total Bilirubin 1.20 H Direct Bilirubin AST 2174 H ALT 1649 H Alkaline Phosphatase 84 Ammonia Troponin I 126.000 H* Total Protein 6.3 L Albumin 3.1 L Globulin 3.2 Albumin/Globulin Ratio 1.0 Triglycerides 64 Cholesterol 170 LDL Cholesterol 112 VLDL Cholesterol 13 HDL Cholesterol 45 MRSA (PCR) 01/17/19 01/17/19 01/17/19 03:15 05:34 08:00 WBC RBC Hgb Hct MCV MCH MCHC RDW RDW Differential Plt Count MPV Immature Gran % (Auto) Neut % (Auto) Lymph % (Auto) [place] % (Auto) Eos % (Auto) Baso % (Auto) Absolute Neuts (auto) Absolute Lymphs (auto) Total Counted Nucleated RBC % Differential Comment Diff Path Review Absolute Retic PT INR APTT 110.2 H* Activated Clotting Time Specimen Type ART Sample Site L Radial pH 7.40 Bicarbonate Actual 18.8 L POC Total CO2 20 Base Excess -6 L O2 Saturation 99 O2 % 50 ABG pCO2 30.3 L ABG pO2 158 H Fred Test NA VBG pH VBG pO2 VBG O2 Sat (Calc) VBG O2 Content VBG Base Excess POC Mix VBG pCO2 Pt Tmp Respiration Rate 12 O2 Delivery Device Vent Minute Volume 12.00 Vent Mode A-C Tidal Volume 450 POC PEEP 5 Blood Gas Notified Whom HOSP MD Blood Gas Notified Time Sodium Potassium Chloride Carbon Dioxide Anion Gap BUN Creatinine Estim Creat Clear Calc Est GFR (MDRD) Af Amer Est GFR (MDRD) Non-Af BUN/Creatinine Ratio Glucose Calcium Magnesium Total Bilirubin Direct Bilirubin AST ALT Alkaline Phosphatase Ammonia Troponin I Total Protein Albumin Globulin Albumin/Globulin Ratio Triglycerides Cholesterol LDL Cholesterol VLDL Cholesterol HDL Cholesterol MRSA (PCR) Pending 01/17/19 01/17/19 09:15 09:40 WBC RBC Hgb Hct MCV MCH MCHC RDW RDW Differential Plt Count MPV Immature Gran % (Auto) Neut % (Auto) Lymph % (Auto) [place] % (Auto) Eos % (Auto) Baso % (Auto) Absolute Neuts (auto) Absolute Lymphs (auto) Total Counted Nucleated RBC % Differential Comment Diff Path Review Absolute Retic PT INR APTT Pending Activated Clotting Time Specimen Type Sample Site pH Bicarbonate Actual POC Total CO2 Base Excess O2 Saturation O2 % ABG pCO2 ABG pO2 Fred Test VBG pH VBG pO2 VBG O2 Sat (Calc) VBG O2 Content VBG Base Excess POC Mix VBG pCO2 Pt Tmp Respiration Rate O2 Delivery Device Minute Volume Vent Mode Tidal Volume POC PEEP Blood Gas Notified Whom Blood Gas Notified Time Sodium Potassium Chloride Carbon Dioxide Anion Gap BUN Creatinine Estim Creat Clear Calc Est GFR (MDRD) Af Amer Est GFR (MDRD) Non-Af BUN/Creatinine Ratio Glucose Calcium Magnesium Total Bilirubin Direct Bilirubin AST ALT Alkaline Phosphatase Ammonia Pending Troponin I Total Protein Albumin Globulin Albumin/Globulin Ratio Triglycerides Cholesterol LDL Cholesterol VLDL Cholesterol HDL Cholesterol MRSA (PCR) POC Glucose 01/17/19 01/17/19 01/17/19 08:37 06:58 02:07 POC Glucose 115 H 69 L 83 01/16/19 23:03 POC Glucose 122 H Assessment/Plan All Active Problems (Last Updated 01/17/19 @ 09:11 by Tg Simons) ROSSI (acute kidney injury) (Acute) Ischemic cardiomyopathy (Acute) Cardiac arrest with ventricular fibrillation (Acute) Acute anterior wall MN (Acute) Cardiac arrest (Acute) The patient is a 53 year old M with PMH tobacco abuse, depression, obesity, chronic pain admitted status post cardiac arrest. History cannot be obtained from the patient as he is intubated and is obtained from the medical records and documentation. Per ED and hospitalist documentation patient was with her girlfriend yesterday 01/16/2019 when he collapsed, CPR was initiated immediately was found to be in V. fib arrest, ACLS protocol was followed per documentation, was intubated in the ED, found to have STEMI for which patient underwent cardiac catheterization with stent placement in the LAD, currently is on aspirin/Brilinta and heparin drip, continues to be comatose, pupils are reactive at present, has weak gag corneal and conjunctival reflex. No documented weakness seizures. Impression ?Possible anoxic brain injury/hypoxic ischemic encephalopathy status post cardiac arrest Plan ?Check CT head without contrast ?Labs reviewed?WBC 21.9, Hb 13, sodium 145, potassium 5.4, creatinine 2.72, AST/ALT?217 12/1648, ammonia 62 ?Prognosis guarded ?Cardiology and nephrology following ?Further medical management per ICU team and hospitalist team ?Please call with questions if any ?Thank you for allowing us to part spent in patient's care and management. Code Visit Inpatient E&M: [id number] Init Hosp L3
[2019-01-17 10:05] LABS: M R Staph aureus DNA By PCR Negative (Negative); Probe Check PASS; Specimen Processing Control PASS
[2019-01-17] MEDS: TICAGRELOR 90 MG TABLET GT ×2 (10:13→22:02)
[2019-01-17] MEDS: Famotidine 20 MG Tablet GT ×2 (10:13→21:52)
[2019-01-17] MEDS: 0.9% NaCl Peripheral Flush Adult/Peds IV ×2 (10:14→21:42)
[2019-01-17] MEDS: Furosemide 40 MG/4 ML Vial IV (10:14)
[2019-01-17] MEDS: Chlorhexidine 15 ML PO ×2 (10:14→21:43)
[2019-01-17] MEDS: Aspirin 81 MG TAB.CHEW GT (10:16)
[2019-01-17] MEDS: Heparin Injection (Vial) 5,000 UNIT/ML VIAL IV (10:39)
--- NOTE | 2019-01-17 10:46 | PCM.CONS.R ---
Problem List (1) ROSSI (acute kidney injury) Status: Acute Consultation - Renal 01/17/19 PCP/ Referring MD: Requesting physician: Dr Dillon Primary care physician: Yassine Tinsley MD Reason for Consultation:: ROSSI - History of Present Illness History of Present Illness: The patient is a 53 year old M who had an outside cardiac arrest. apparently he was working on a home and passed out suddenly. EMS was called. initially V Fib arrest requiring shocks, extended CPR overall. was intubated in ER. STEMI on EKG, went to cath lab tech with stenting by cardiology. was on amiodarone drip for V Fib overnight. currently intubated, on levophed, IABP. bp is in 130s systolic. Anuric since yesterday. total arrest time 20-40 min as per staff patient is currently unresponsive, breathing over vent, rolled up eyes, ? myoclonic jerks febrile overnight currently on broad spectrum antibiotics - Allergies Allergies: Allergies No Known Allergies Allergy (Verified 08/26/15 11:39) - Current Medications Current Medications: Current Medications Albuterol Sulfate (Ventolin Aerosols) 2.5 mg INHALATION Q2H PRN PRN PRN Reason: dyspnea, wheezing Aspirin (Aspirin, Baby) 81 mg GT DAILY@0800 [facility] Atorvastatin Calcium (Lipitor) 80 mg GT QHS [facility] Atropine Sulfate () 0.5 mg IV UD PRN PRN Reason: HR <50 bpm Chlorhexidine Gluconate () 15 ml PO BID [facility] Last Admin: 01/17/19 10:14 Dose: 15 ml Famotidine (Pepcid) 20 mg GT BID [facility] Last Admin: 01/17/19 10:13 Dose: 20 mg Furosemide (Lasix) 40 mg IV DAILY [facility] Last Admin: 01/17/19 10:14 Dose: 40 mg Heparin Sodium (Beef Lung) (Heparin 500 Unit/5 Ml (100/Ml)) 500 unit IV UD PRN PRN Reason: HEPARIN FLUSH Heparin Sodium (Porcine) (Heparin Na) 0 unit IV UD PRN; Protocol Last Admin: 01/17/19 10:39 Dose: 1,000 unit Heparin Sodium/Sodium Chloride () 2,000 units IV UD [facility] Last Admin: 01/16/19 21:02 Dose: 2,000 units Hydralazine HCl (Apresoline Iv) 10 mg IV Q4H PRN PRN PRN Reason: SBP > 160 Heparin Sodium/Dextrose () 25,000 units in 250 mls @ 15 mls/hr IV .[id number]; Protocol Last Admin: 01/16/19 21:15 Dose: 15 mls/hr Sodium Chloride () 250 mls @ 15 mls/hr IV .[id number] PRN PRN Reason: SALINE FLUSH Last Admin: 01/17/19 01:23 Dose: 15 mls/hr Piperacillin Sod/Tazobactam (Sod 3.375 gm/ Sodium Chloride) 50 mls @ 12.5 mls/hr IV Q8 [facility] Last Admin: 01/17/19 06:16 Dose: 12.5 mls/hr Norepinephrine Bitartrate 8 mg (/ Sodium Chloride) 250 mls @ 9.38 mls/hr CONT INF .[id number] [facility] Last Admin: 01/17/19 08:49 Dose: 9.38 mls/hr Labetalol HCl (Trandate) 5 mg IV X1 PRN PRN Reason: SBP > 160 when pulling sheath Sodium Chloride () 500 ml IV BOLUS PRN PRN Reason: VASO-VAGAL PROTOCOL Sodium Chloride () 5 - 15 ml IV UD PRN PRN Reason: SALINE FLUSH Last Admin: 01/17/19 10:14 Dose: 10 ml Ticagrelor (Brilinta) 90 mg GT BID [facility] Last Admin: 01/17/19 10:13 Dose: 90 mg - Past Medical History Past Medical History (Chronic Problems): Chronic Problems (Last Updated 01/17/19 @ 09:11 by Tg Simons) Arteriosclerosis of coronary artery in patient with history of myocardial infarction (Chronic) STEMI, VFib arrest, coronary stents to LAD X 2 01/16/19 Stented coronary artery (Chronic 01/16/19) Global LV systolic dysfunction- Severe, LVEF: by Echogram 15 %; Depressed Left Ventricular systolic function - Severe; Successful PTCA/ALLAN of mid LAD with a 2.5 x 16 Promus Synergy followed immediately upstream with a 2.5 x 38 Promus Synergy, post dilated iwth a 3.5 x 12 NC balloon in proximal 2/3 of stent; 85%-->0%, no dissection or significant plaque shift into DIAGs. Successful PTCA/ALLAN Proximal LAD with a 3.5 x 16 Promus Synergy, post dilated throughout with a 3.5 x 12 NC Balloon; 85%-->0% ,no dissection. Emergent IABP placed for severe LV dysfunction and recent cardiac arrest. Tobacco abuse (Chronic) Chronic back pain (Chronic) Obesity (Chronic) Depression (Chronic) - Past Surgical History Surgical History: - - Patient status post back surgery as well as surgery status post some form of trauma with noted grafting at least to the right lower extremity. - Social History Smoking Status: Current every day smoker Alcohol: None Drugs: None - Family History Maternal History Items: Unknown - Unable to obtain patient history secondary to intubated, recent cardiac arrest and nonresponsive status. Paternal History Items: Unknown - Unable to obtain patient history secondary to intubated, recent cardiac arrest and nonresponsive status. Review of Systems Unable to obtain accurate/complete ROS d/t: unresponsive state Patient Problems: Active and Suspected Problems (Last Updated 01/17/19 @ 09:11 by Tg Simons) ROSSI (acute kidney injury) (Acute) Ischemic cardiomyopathy (Acute) EF 15% per cath post PR and Vfib arrest 01/16/19 Cardiac arrest with ventricular fibrillation (Acute) Acute anterior wall PR (Acute) Cardiac arrest (Acute) - Physical Exam HEENT: Atraumatic, PERRLA, EOMI, Normocephalic Neck: Supple, No JVD, Negative Carotid Bruits Lungs: Clear to auscultation, Normal air movement Cardiovascular: Regular rate, No murmurs Abdomen: Bowel Sounds Present, Soft, Non Tender Extremities: No edema, Capillary Refill Less than 3 Seconds Skin: Skin Tear Vital Signs Temp Pulse Resp BP Pulse Ox 100.0 F H 99 35 H 119/70 92 01/17/19 07:00 01/17/19 09:00 01/17/19 09:00 01/17/19 07:00 01/17/19 09:00 Oxygen Delivery Method Mechanical Ventilator Weight: 109.3 kg Body Mass Index (BMI) 33.3 Intake and Output for Last 24 Hours 01/15/19 01/16/19 01/17/19 23:59 23:59 23:59 Intake Total 1114.6 / 1114.6 1327.3 / 1327.3 Output Total 395 / 395 102 / 102 Balance 719.6 / 719.6 1225.3 / 1225.3 Laboratory Tests Past 24 Hrs 01/16/19 01/16/19 01/16/19 17:31 17:31 17:31 WBC 17.9 H RBC 3.94 L Hgb 12.6 L Hct 38.5 L MCV 97.7 H MCH 32.0 MCHC 32.7 RDW 14.6 RDW Differential 51.9 H Plt Count 278 MPV 9.6 Immature Gran % (Auto) 2.200 H Neut % (Auto) 53.3 Lymph % (Auto) 37.6 Walker % (Auto) 5.2 Eos % (Auto) 1.3 Baso % (Auto) 0.4 Absolute Neuts (auto) 9.5 H Absolute Lymphs (auto) 6.71 H Total Counted Not Reportable Nucleated RBC % 0.6 Differential Comment SCANNED Diff Path Review May foll Absolute Retic 0.10 PT 16.3 H INR 1.3 APTT 44.1 H Activated Clotting Time Specimen Type Sample Site pH Bicarbonate Actual POC Total CO2 Base Excess O2 Saturation O2 % ABG pCO2 ABG pO2 Fred Test VBG pH VBG pO2 VBG O2 Sat (Calc) VBG O2 Content VBG Base Excess POC Mix VBG pCO2 Pt Tmp Respiration Rate O2 Delivery Device Minute Volume Vent Mode Tidal Volume POC PEEP Blood Gas Notified Whom Blood Gas Notified Time Sodium 144 Potassium 3.5 Chloride 108 H Carbon Dioxide 21.0 Anion Gap 15 BUN 16 Creatinine 1.57 H Estim Creat Clear Calc Est GFR (MDRD) Af Amer 60 Est GFR (MDRD) Non-Af 49 L BUN/Creatinine Ratio 10.2 Glucose 272 H Calcium 8.6 Magnesium Total Bilirubin Direct Bilirubin AST ALT Alkaline Phosphatase Ammonia Troponin I 0.463 H Total Protein Albumin Globulin Albumin/Globulin Ratio Triglycerides Cholesterol LDL Cholesterol VLDL Cholesterol HDL Cholesterol MRSA (PCR) 01/16/19 01/16/19 01/16/19 18:00 18:26 18:32 WBC RBC Hgb Hct MCV MCH MCHC RDW RDW Differential Plt Count MPV Immature Gran % (Auto) Neut % (Auto) Lymph % (Auto) Walker % (Auto) Eos % (Auto) Baso % (Auto) Absolute Neuts (auto) Absolute Lymphs (auto) Total Counted Nucleated RBC % Differential Comment Diff Path Review Absolute Retic PT INR APTT Activated Clotting Time 158 H Specimen Type ART ART Sample Site L Femoral R Femoral pH 7.03 L* 7.26 L Bicarbonate Actual 15.9 L 16.8 L POC Total CO2 18 18 Base Excess -15 L -10 L O2 Saturation 99 100 H O2 % 100 100 ABG pCO2 60.2 H 37.5 ABG pO2 179 H 391 H* Fred Test NA NA VBG pH VBG pO2 VBG O2 Sat (Calc) VBG O2 Content VBG Base Excess POC Mix VBG pCO2 Pt Tmp Respiration Rate 26 O2 Delivery Device Ambu Vent Minute Volume 18.00 Vent Mode A-C Tidal Volume 550 POC PEEP 5 Blood Gas Notified Whom ED MD OTHER Blood Gas Notified Time 1751 Sodium Potassium Chloride Carbon Dioxide Anion Gap BUN Creatinine Estim Creat Clear Calc Est GFR (MDRD) Af Amer Est GFR (MDRD) Non-Af BUN/Creatinine Ratio Glucose Calcium Magnesium Total Bilirubin Direct Bilirubin AST ALT Alkaline Phosphatase Ammonia Troponin I Total Protein Albumin Globulin Albumin/Globulin Ratio Triglycerides Cholesterol LDL Cholesterol VLDL Cholesterol HDL Cholesterol MRSA (PCR) 01/16/19 01/16/19 01/16/19 19:04 19:10 20:55 WBC RBC Hgb Hct MCV MCH MCHC RDW RDW Differential Plt Count MPV Immature Gran % (Auto) Neut % (Auto) Lymph % (Auto) Walker % (Auto) Eos % (Auto) Baso % (Auto) Absolute Neuts (auto) Absolute Lymphs (auto) Total Counted Nucleated RBC % Differential Comment Diff Path Review Absolute Retic PT INR APTT Activated Clotting Time 175 H Specimen Type BONNIE Sample Site pH Bicarbonate Actual POC Total CO2 Base Excess O2 Saturation O2 % ABG pCO2 ABG pO2 Fred Test VBG pH 7.25 L VBG pO2 409 H* VBG O2 Sat (Calc) 100 H VBG O2 Content 22 L VBG Base Excess -6 L POC Mix VBG pCO2 Pt Tmp 48.1 Respiration Rate O2 Delivery Device Minute Volume Vent Mode Tidal Volume POC PEEP Blood Gas Notified Whom Blood Gas Notified Time Sodium Potassium Chloride Carbon Dioxide Anion Gap BUN Creatinine Estim Creat Clear Calc Est GFR (MDRD) Af Amer Est GFR (MDRD) Non-Af BUN/Creatinine Ratio Glucose Calcium Magnesium 1.4 L Total Bilirubin Direct Bilirubin AST ALT Alkaline Phosphatase Ammonia Troponin I Total Protein Albumin Globulin Albumin/Globulin Ratio Triglycerides Cholesterol LDL Cholesterol VLDL Cholesterol HDL Cholesterol MRSA (PCR) 01/16/19 01/16/19 01/16/19 20:55 20:55 20:55 WBC 38.6 H* RBC 3.88 L Hgb 12.5 L Hct 36.6 L MCV 94.3 H MCH 32.2 H MCHC 34.2 RDW 14.7 H RDW Differential 49.8 H Plt Count 246 MPV 10.0 Immature Gran % (Auto) Neut % (Auto) Lymph % (Auto) Walker % (Auto) Eos % (Auto) Baso % (Auto) Absolute Neuts (auto) Absolute Lymphs (auto) Total Counted Nucleated RBC % Differential Comment SCANNED Diff Path Review May foll Absolute Retic PT INR APTT Activated Clotting Time Specimen Type Sample Site pH Bicarbonate Actual POC Total CO2 Base Excess O2 Saturation O2 % ABG pCO2 ABG pO2 Fred Test VBG pH VBG pO2 VBG O2 Sat (Calc) VBG O2 Content VBG Base Excess POC Mix VBG pCO2 Pt Tmp Respiration Rate O2 Delivery Device Minute Volume Vent Mode Tidal Volume POC PEEP Blood Gas Notified Whom Blood Gas Notified Time Sodium Potassium Chloride Carbon Dioxide Anion Gap BUN Creatinine Estim Creat Clear Calc Est GFR (MDRD) Af Amer Est GFR (MDRD) Non-Af BUN/Creatinine Ratio Glucose Calcium Magnesium Total Bilirubin 0.40 Direct Bilirubin < 0.05 AST 399 H ALT 252 H Alkaline Phosphatase 90 Ammonia Troponin I 11.900 H* Total Protein 5.3 L Albumin 2.7 L Globulin 2.6 Albumin/Globulin Ratio Triglycerides Cholesterol LDL Cholesterol VLDL Cholesterol HDL Cholesterol MRSA (PCR) 01/17/19 01/17/19 01/17/19 03:15 03:15 03:15 WBC 21.9 H RBC 4.11 L Hgb 13.0 Hct 39.1 L MCV 95.1 H MCH 31.6 MCHC 33.2 RDW 15.2 H RDW Differential 52.3 H Plt Count 384 MPV 9.3 Immature Gran % (Auto) 0.300 Neut % (Auto) 83.1 H Lymph % (Auto) 6.8 L Walker % (Auto) 9.8 Eos % (Auto) 0.0 Baso % (Auto) 0.0 Absolute Neuts (auto) 18.2 H Absolute Lymphs (auto) 1.49 Total Counted Not Reportable Nucleated RBC % 0.3 Differential Comment Diff Path Review May foll Absolute Retic 0.06 PT INR APTT Activated Clotting Time Specimen Type Sample Site pH Bicarbonate Actual POC Total CO2 Base Excess O2 Saturation O2 % ABG pCO2 ABG pO2 Fred Test VBG pH VBG pO2 VBG O2 Sat (Calc) VBG O2 Content VBG Base Excess POC Mix VBG pCO2 Pt Tmp Respiration Rate O2 Delivery Device Minute Volume Vent Mode Tidal Volume POC PEEP Blood Gas Notified Whom Blood Gas Notified Time Sodium 145 Potassium 5.4 H Chloride 107 Carbon Dioxide 23.0 Anion Gap 15 BUN 26 H Creatinine 2.72 H Estim Creat Clear Calc 34.87 Est GFR (MDRD) Af Amer 32 L Est GFR (MDRD) Non-Af 26 L BUN/Creatinine Ratio 9.6 L Glucose 117 H Calcium 7.5 L Magnesium Total Bilirubin 1.20 H Direct Bilirubin AST 2174 H ALT 1649 H Alkaline Phosphatase 84 Ammonia Troponin I 126.000 H* Total Protein 6.3 L Albumin 3.1 L Globulin 3.2 Albumin/Globulin Ratio 1.0 Triglycerides 64 Cholesterol 170 LDL Cholesterol 112 VLDL Cholesterol 13 HDL Cholesterol 45 MRSA (PCR) 01/17/19 01/17/19 01/17/19 03:15 05:34 08:00 WBC RBC Hgb Hct MCV MCH MCHC RDW RDW Differential Plt Count MPV Immature Gran % (Auto) Neut % (Auto) Lymph % (Auto) Walker % (Auto) Eos % (Auto) Baso % (Auto) Absolute Neuts (auto) Absolute Lymphs (auto) Total Counted Nucleated RBC % Differential Comment Diff Path Review Absolute Retic PT INR APTT 110.2 H* Activated Clotting Time Specimen Type ART Sample Site L Radial pH 7.40 Bicarbonate Actual 18.8 L POC Total CO2 20 Base Excess -6 L O2 Saturation 99 O2 % 50 ABG pCO2 30.3 L ABG pO2 158 H Fred Test NA VBG pH VBG pO2 VBG O2 Sat (Calc) VBG O2 Content VBG Base Excess POC Mix VBG pCO2 Pt Tmp Respiration Rate 12 O2 Delivery Device Vent Minute Volume 12.00 Vent Mode A-C Tidal Volume 450 POC PEEP 5 Blood Gas Notified Whom [facility] Blood Gas Notified Time Sodium Potassium Chloride Carbon Dioxide Anion Gap BUN Creatinine Estim Creat Clear Calc Est GFR (MDRD) Af Amer Est GFR (MDRD) Non-Af BUN/Creatinine Ratio Glucose Calcium Magnesium Total Bilirubin Direct Bilirubin AST ALT Alkaline Phosphatase Ammonia Troponin I Total Protein Albumin Globulin Albumin/Globulin Ratio Triglycerides Cholesterol LDL Cholesterol VLDL Cholesterol HDL Cholesterol MRSA (PCR) Negative 01/17/19 01/17/19 09:15 09:40 WBC RBC Hgb Hct MCV MCH MCHC RDW RDW Differential Plt Count MPV Immature Gran % (Auto) Neut % (Auto) Lymph % (Auto) Walker % (Auto) Eos % (Auto) Baso % (Auto) Absolute Neuts (auto) Absolute Lymphs (auto) Total Counted Nucleated RBC % Differential Comment Diff Path Review Absolute Retic PT INR APTT 48.0 H Activated Clotting Time Specimen Type Sample Site pH Bicarbonate Actual POC Total CO2 Base Excess O2 Saturation O2 % ABG pCO2 ABG pO2 Fred Test VBG pH VBG pO2 VBG O2 Sat (Calc) VBG O2 Content VBG Base Excess POC Mix VBG pCO2 Pt Tmp Respiration Rate O2 Delivery Device Minute Volume Vent Mode Tidal Volume POC PEEP Blood Gas Notified Whom Blood Gas Notified Time Sodium Potassium Chloride Carbon Dioxide Anion Gap BUN Creatinine Estim Creat Clear Calc Est GFR (MDRD) Af Amer Est GFR (MDRD) Non-Af BUN/Creatinine Ratio Glucose Calcium Magnesium Total Bilirubin Direct Bilirubin AST ALT Alkaline Phosphatase Ammonia 62.0 H Troponin I Total Protein Albumin Globulin Albumin/Globulin Ratio Triglycerides Cholesterol LDL Cholesterol VLDL Cholesterol HDL Cholesterol MRSA (PCR) POC Glucose 01/17/19 01/17/19 01/17/19 08:37 06:58 02:07 POC Glucose 115 H 69 L 83 01/16/19 23:03 POC Glucose 122 H Assessment/Plan All Active Problems (Last Updated 01/17/19 @ 09:11 by Tg Simons) ROSSI (acute kidney injury) (Acute) Ischemic cardiomyopathy (Acute) Cardiac arrest with ventricular fibrillation (Acute) Acute anterior wall PR (Acute) Cardiac arrest (Acute) ROSSI. no prior kidney disease as per labs. Due to extended cardiac arrest he has multi organ failure including ROSSI, Acute hepatic failure. anuric. however he has severe hypotension requiring levophed and IABP support. Febrile also. being treated for sepsis. PH is ok. K is borderline. seems to have sustained significant neurological injury due to prolonger anoxia. too unstable for [employer] at this time. no acute medical indications either. Hold off on [employer] for today. will follow on neurology recommendations regarding further management. Acidosis. better. off bicarbonate drip STEMI. s/p stenting cardiology
--- NOTE | 2019-01-17 10:48 | PN.CARD_ITS ---
Subjectve: Patient intubated, sedated, no purposeful movements, does appear to be breathing over the vent, does not obey commands. Minimal pupil reactivity. Left groin site is clean/dry/intact with 1+ DP and PT pulses bilaterally. Amiodarone drip discontinued due to a sending LFTs. Telemetry showed normal sinus rhythm with a 5 beat run of nonsustained ventricular tachycardia after amiodarone drip discontinued. Heparin drip running. Integrilin drip discontinued. NG tube in place. Levo fed off since 11 PM on 01/15/2019. Creatinine increased most likely due to cardiogenic shock due to CPR in the field. Objective: Vital Signs Temp Pulse Resp BP Pulse Ox 100.0 F H 99 35 H 119/70 92 01/17/19 07:00 01/17/19 09:00 01/17/19 09:00 01/17/19 07:00 01/17/19 09:00 Oxygen Delivery Method Mechanical Ventilator Weight: 240 lb 15.444 oz Body Mass Index (BMI) 33.3 Intake and Output for Last 24 Hours 01/15/19 01/16/19 01/17/19 23:59 23:59 23:59 Intake Total 1114.6 / 1114.6 1327.3 / 1327.3 Output Total 395 / 395 102 / 102 Balance 719.6 / 719.6 1225.3 / 1225.3 General: Awake, Alert, Oriented x 3 HEENT: PERRL, EOMI, Sclera Non Icteric Neck: Supple, Good ROM, No Lymph Node Enlargement Lungs: Clear to auscultation Cardiovascular: Regular Rhythm, Normal S1, Normal S2, No Murmurs, No Rubs, No Gallops Vascular: No Carotid Bruits, Normal Femoral Pulses, Normal Radial Pulses, Normal Dorsalis Pedal Pulse, Normal Posterior Tibial Pulses Abdomen: Bowel Sounds Present, Soft, Non Tender, No HSM, No Organomegaly Extremities: No Cyanosis, No Clubbing, No edema Neurological: No Focal Motor or Sensory Deficit 01/16/19 17:31: WBC 17.9 H, RBC 3.94 L, Hgb 12.6 L, Hct 38.5 L, MCV 97.7 H, MCH 32.0, MCHC 32.7, RDW 14.6, RDW Differential 51.9 H, Plt Count 278, MPV 9.6, Immature Gran % (Auto) 2.200 H, Neut % (Auto) 53.3, Lymph % (Auto) 37.6, [place] % (Auto) 5.2, Eos % (Auto) 1.3, Baso % (Auto) 0.4, Absolute Neuts (auto) 9.5 H, Total Counted Not Reportable, Nucleated RBC % 0.6 01/16/19 17:31: PT 16.3 H, INR 1.3, APTT 44.1 H 01/16/19 17:31: Sodium 144, Potassium 3.5, Chloride 108 H, Carbon Dioxide 21.0, Anion Gap 15, BUN 16, Creatinine 1.57 H, Est GFR (MDRD) Af Amer 60, Est GFR (MDRD) Non-Af 49 L, BUN/Creatinine Ratio 10.2, Glucose 272 H, Calcium 8.6, Troponin I 0.463 H 01/16/19 18:00: pH 7.03 L*, Bicarbonate Actual 15.9 L, POC Total CO2 18, Base Excess -15 L, O2 Saturation 99, ABG pCO2 60.2 H, ABG pO2 179 H, Fred Test NA 01/16/19 18:32: pH 7.26 L, Bicarbonate Actual 16.8 L, POC Total CO2 18, Base Excess -10 L, O2 Saturation 100 H, ABG pCO2 37.5, ABG pO2 391 H*, Fred Test NA 01/16/19 19:10: VBG pH 7.25 L, VBG pO2 409 H*, VBG O2 Sat (Calc) 100 H, VBG O2 Content 22 L, VBG Base Excess -6 L 01/16/19 20:55: Magnesium 1.4 L 01/16/19 20:55: WBC 38.6 H*, RBC 3.88 L, Hgb 12.5 L, Hct 36.6 L, MCV 94.3 H, MCH 32.2 H, MCHC 34.2, RDW 14.7 H, RDW Differential 49.8 H, Plt Count 246, MPV 10.0 01/16/19 20:55: Troponin I 11.900 H* 01/16/19 20:55: Total Bilirubin 0.40, Direct Bilirubin < 0.05 01/17/19 03:15: WBC 21.9 H, RBC 4.11 L, Hgb 13.0, Hct 39.1 L, MCV 95.1 H, MCH 31.6, MCHC 33.2, RDW 15.2 H, RDW Differential 52.3 H, Plt Count 384, MPV 9.3, Immature Gran % (Auto) 0.300, Neut % (Auto) 83.1 H, Lymph % (Auto) 6.8 L, [place] % (Auto) 9.8, Eos % (Auto) 0.0, Baso % (Auto) 0.0, Absolute Neuts (auto) 18.2 H, Total Counted Not Reportable, Nucleated RBC % 0.3 01/17/19 03:15: Sodium 145, Potassium 5.4 H, Chloride 107, Carbon Dioxide 23.0, Anion Gap 15, BUN 26 H, Creatinine 2.72 H, Est GFR (MDRD) Af Amer 32 L, Est GFR (MDRD) Non-Af 26 L, BUN/Creatinine Ratio 9.6 L, Glucose 117 H, Calcium 7.5 L, Total Bilirubin 1.20 H, Triglycerides 64, Cholesterol 170, LDL Cholesterol 112, VLDL Cholesterol 13, HDL Cholesterol 45 01/17/19 03:15: Troponin I 126.000 H* 01/17/19 03:15: APTT 110.2 H* 01/17/19 05:34: pH 7.40, Bicarbonate Actual 18.8 L, POC Total CO2 20, Base Excess -6 L, O2 Saturation 99, ABG pCO2 30.3 L, ABG pO2 158 H, Fred Test NA 01/17/19 09:40: APTT 48.0 H Rhythm: EKG: ECHO: Stress Test: Cardiac Cath: PCI: CT Surgery: Holter monitor: EPS: PPM: CXR: Chest CT Scan: Medical Necessity - Tobacco Use Smoking Status: Current every day smoker Tobacco Use: Cigarettes Assessment/Plan 1. Coronary artery disease: Patient status post cardiac arrest in the field requiring at least 5 defibrillations, CPR in route, and in the emergency room. He required aggressive ACLS protocol including intubation, CPR, additional defibrillation in the emergency room followed by emergent left heart catheterization. Emergent left heart catheterization via the left groin demonstrated multivessel coronary disease with an occluded old right coronary artery with robust left to right collaterals compromised by 3 tandem lesions in his proximal and mid LAD. His left circumflex had moderate nonobstructive coronary disease. He received 3 drug-eluting stents in his proximal mid LAD with an excellent result. His ejection fraction at the conclusion of the procedure was approximately 15 to 20%. An intrinsic balloon pump was placed without complications and remains at 1: 1. We have no plans at this time for PCI of his chronically occluded RCA. Echo is pending. At this point given the patient's ascending LFTs due to cardiogenic shock and worsening creatinine I recommended discontinuation of his amiodarone and continuation of his intra-balloon pump to supplement renal blood flow. He looks like he is in the beginning phases of acute tubular necrosis with decreased urine output, increasing creatinine. At this point I would recommend renal consultation as well as neurological consultation to assess his brain function and possible anoxic brain injury. Patient is breathing over the vent suggesting he does have brainstem activity, but has no purposeful movements, does not obey commands, and has minimal gag reflex. He will continue baby aspirin, Brilinta, his Levophed has been weaned but may be required for perfusion. Recommend continuing intra-balloon pump and heparin drip for at least another 24 hours if not longer to assist with cardiogenic shock. 2. Cardiac arrest: Patient received an IV amiodarone drip after 2 IV amiodarone boluses, but his drip was discontinued due to increasing liver function test. If the patient has sustained recurrent ventricular tachycardia would recommend restarting his amiodarone at 0.5 mg/min. 3. LV dysfunction: The patient had severe LV dysfunction at the conclusion of the procedure and echocardiogram is pending. Would recommend holding on beta- lewis therapy until he been off levo fed at least for 24 hours. At that time would recommend Coreg 3.125 mill grams p.o. twice daily for both heart rate and afterload reduction. 4. Hyperlipidemia: Continue aggressive LDL reduction with statin therapy. We may want to consider holding his Lipitor during his increasing and worsening liver function test. 5. Discussed with Dr. Dillon. Thank you very much for the opportunity to participate in the cardiac care of your patient.
--- NOTE | 2019-01-17 10:54 | CASEMGMT ---
Pt's mother in visiting, as well as pt's friend Semaj. SW offered support to friend and mother. Pt's mother states his brother and sister in law are coming from [place], pt also has another brother in [place], and girlfriend of 13 years. Pt's father 15 years ago. Semaj states he has been friends with pt for 30+ years. SW let pt's mother and friend know SW is available for support. Pt's mother asked about insurance, SW let her know that as per our financial dept, pt does have Medicare part A. Pt's mother relieved to hear this. SW continues to be available for support to family. ANGELINE Marcos
--- NOTE | 2019-01-17 11:01 | CON.PCM_ITS ---
Problem List (1) ROSSI (acute kidney injury) Status: Acute Consultation - Renal 01/17/19 PCP/ Referring MD: Requesting physician: Dr Dillon Primary care physician: Yassine Tinsley MD Reason for Consultation:: ROSSI - History of Present Illness History of Present Illness: The patient is a 53 year old M who had an outside cardiac arrest. apparently he was working on a home and passed out suddenly. EMS was called. initially V Fib arrest requiring shocks, extended CPR overall. was intubated in ER. 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 was on amiodarone drip for V Fib overnight. currently intubated, on levophed, IABP. bp is in 130s systolic. Anuric since yesterday. total arrest time 20-40 min as per staff patient is currently unresponsive, breathing over vent, rolled up eyes, ? myoclonic jerks febrile overnight currently on broad spectrum antibiotics - Allergies Allergies: Allergies No Known Allergies Allergy (Verified 08/26/15 11:39) - Current Medications Current Medications: Current Medications Albuterol Sulfate (Ventolin Aerosols) 2.5 mg INHALATION Q2H PRN PRN PRN Reason: dyspnea, wheezing Aspirin (Aspirin, Baby) 81 mg GT DAILY@0800 [facility] Atorvastatin Calcium (Lipitor) 80 mg GT QHS [facility] Atropine Sulfate () 0.5 mg IV UD PRN PRN Reason: HR <50 bpm Chlorhexidine Gluconate () 15 ml PO BID [facility] Last Admin: 01/17/19 10:14 Dose: 15 ml Famotidine (Pepcid) 20 mg GT BID [facility] Last Admin: 01/17/19 10:13 Dose: 20 mg Furosemide (Lasix) 40 mg IV DAILY [facility] Last Admin: 01/17/19 10:14 Dose: 40 mg Heparin Sodium (Beef Lung) (Heparin 500 Unit/5 Ml (100/Ml)) 500 unit IV UD PRN PRN Reason: HEPARIN FLUSH Heparin Sodium (Porcine) (Heparin Na) 0 unit IV UD PRN; Protocol Last Admin: 01/17/19 10:39 Dose: 1,000 unit Heparin Sodium/Sodium Chloride () 2,000 units IV UD [facility] Last Admin: 01/16/19 21:02 Dose: 2,000 units Hydralazine HCl (Apresoline Iv) 10 mg IV Q4H PRN PRN PRN Reason: SBP > 160 Heparin Sodium/Dextrose () 25,000 units in 250 mls @ 15 mls/hr IV .[id number] KECIA; Protocol Last Admin: 01/16/19 21:15 Dose: 15 mls/hr Sodium Chloride () 250 mls @ 15 mls/hr IV .[id number] PRN PRN Reason: SALINE FLUSH Last Admin: 01/17/19 01:23 Dose: 15 mls/hr Piperacillin Sod/Tazobactam (Sod 3.375 gm/ Sodium Chloride) 50 mls @ 12.5 mls/hr IV Q8 [facility] Last Admin: 01/17/19 06:16 Dose: 12.5 mls/hr Norepinephrine Bitartrate 8 mg (/ Sodium Chloride) 250 mls @ 9.38 mls/hr CONT INF .[id number] [facility] Last Admin: 01/17/19 08:49 Dose: 9.38 mls/hr Labetalol HCl (Trandate) 5 mg IV X1 PRN PRN Reason: SBP > 160 when pulling sheath Sodium Chloride () 500 ml IV BOLUS PRN PRN Reason: VASO-VAGAL PROTOCOL Sodium Chloride () 5 - 15 ml IV UD PRN PRN Reason: SALINE FLUSH Last Admin: 01/17/19 10:14 Dose: 10 ml Ticagrelor (Brilinta) 90 mg GT BID [facility] Last Admin: 01/17/19 10:13 Dose: 90 mg - Past Medical History Past Medical History (Chronic Problems): Chronic Problems (Last Updated 01/17/19 @ 09:11 by Tg Simons) Arteriosclerosis of coronary artery in patient with history of myocardial infarction (Chronic) STEMI, VFib arrest, coronary stents to LAD X 2 01/16/19 Stented coronary artery (Chronic 01/16/19) Global LV systolic dysfunction- Severe, LVEF: by Echogram 15 %; Depressed Left Ventricular systolic function - Severe; Successful PTCA/ALLAN of mid LAD with a 2.5 x 16 Promus Synergy followed immediately upstream with a 2.5 x 38 Promus Synergy, post dilated iwth a 3.5 x 12 NC balloon in proximal 2/3 of stent; 85%-->0%, no dissection or significant plaque shift into DIAGs. Successful PTCA/ALLAN Proximal LAD with a 3.5 x 16 Promus Synergy, post dilated throughout with a 3.5 x 12 NC Balloon; 85%-->0% ,no dissection. Emergent IABP placed for severe LV dysfunction and recent cardiac arrest. Tobacco abuse (Chronic) Chronic back pain (Chronic) Obesity (Chronic) Depression (Chronic) - Past Surgical History Surgical History: - - Patient status post back surgery as well as surgery status post some form of trauma with noted grafting at least to the right lower extremity. - Social History Smoking Status: Current every day smoker Alcohol: None Drugs: None - Family History Maternal History Items: Unknown - Unable to obtain patient history secondary to intubated, recent cardiac arrest and nonresponsive status. Paternal History Items: Unknown - Unable to obtain patient history secondary to intubated, recent cardiac arrest and nonresponsive status. Review of Systems Unable to obtain accurate/complete ROS d/t: unresponsive state Patient Problems: Active and Suspected Problems (Last Updated 01/17/19 @ 09:11 by Tg Simons) ROSSI (acute kidney injury) (Acute) Ischemic cardiomyopathy (Acute) EF 15% per cath post DE and Vfib arrest 01/16/19 Cardiac arrest with ventricular fibrillation (Acute) Acute anterior wall DE (Acute) Cardiac arrest (Acute) - Physical Exam HEENT: Atraumatic, PERRLA, EOMI, Normocephalic Neck: Supple, No JVD, Negative Carotid Bruits Lungs: Clear to auscultation, Normal air movement Cardiovascular: Regular rate, No murmurs Abdomen: Bowel Sounds Present, Soft, Non Tender Extremities: No edema, Capillary Refill Less than 3 Seconds Skin: Skin Tear Vital Signs Temp Pulse Resp BP Pulse Ox 100.0 F H 99 35 H 119/70 92 01/17/19 07:00 01/17/19 09:00 01/17/19 09:00 01/17/19 07:00 01/17/19 09:00 Oxygen Delivery Method Mechanical Ventilator Weight: 109.3 kg Body Mass Index (BMI) 33.3 Intake and Output for Last 24 Hours 01/15/19 01/16/19 01/17/19 23:59 23:59 23:59 Intake Total 1114.6 / 1114.6 1327.3 / 1327.3 Output Total 395 / 395 102 / 102 Balance 719.6 / 719.6 1225.3 / 1225.3 Laboratory Tests Past 24 Hrs 01/16/19 01/16/19 01/16/19 17:31 17:31 17:31 WBC 17.9 H RBC 3.94 L Hgb 12.6 L Hct 38.5 L MCV 97.7 H MCH 32.0 MCHC 32.7 RDW 14.6 RDW Differential 51.9 H Plt Count 278 MPV 9.6 Immature Gran % (Auto) 2.200 H Neut % (Auto) 53.3 Lymph % (Auto) 37.6 [place] % (Auto) 5.2 Eos % (Auto) 1.3 Baso % (Auto) 0.4 Absolute Neuts (auto) 9.5 H Absolute Lymphs (auto) 6.71 H Total Counted Not Reportable Nucleated RBC % 0.6 Differential Comment SCANNED Diff Path Review May foll Absolute Retic 0.10 PT 16.3 H INR 1.3 APTT 44.1 H Activated Clotting Time Specimen Type Sample Site pH Bicarbonate Actual POC Total CO2 Base Excess O2 Saturation O2 % ABG pCO2 ABG pO2 Fred Test VBG pH VBG pO2 VBG O2 Sat (Calc) VBG O2 Content VBG Base Excess POC Mix VBG pCO2 Pt Tmp Respiration Rate O2 Delivery Device Minute Volume Vent Mode Tidal Volume POC PEEP Blood Gas Notified Whom Blood Gas Notified Time Sodium 144 Potassium 3.5 Chloride 108 H Carbon Dioxide 21.0 Anion Gap 15 BUN 16 Creatinine 1.57 H Estim Creat Clear Calc Est GFR (MDRD) Af Amer 60 Est GFR (MDRD) Non-Af 49 L BUN/Creatinine Ratio 10.2 Glucose 272 H Calcium 8.6 Magnesium Total Bilirubin Direct Bilirubin AST ALT Alkaline Phosphatase Ammonia Troponin I 0.463 H Total Protein Albumin Globulin Albumin/Globulin Ratio Triglycerides Cholesterol LDL Cholesterol VLDL Cholesterol HDL Cholesterol MRSA (PCR) 01/16/19 01/16/19 01/16/19 18:00 18:26 18:32 WBC RBC Hgb Hct MCV MCH MCHC RDW RDW Differential Plt Count MPV Immature Gran % (Auto) Neut % (Auto) Lymph % (Auto) [facility] % (Auto) Eos % (Auto) Baso % (Auto) Absolute Neuts (auto) Absolute Lymphs (auto) Total Counted Nucleated RBC % Differential Comment Diff Path Review Absolute Retic PT INR APTT Activated Clotting Time 158 H Specimen Type ART ART Sample Site L Femoral R Femoral pH 7.03 L* 7.26 L Bicarbonate Actual 15.9 L 16.8 L POC Total CO2 18 18 Base Excess -15 L -10 L O2 Saturation 99 100 H O2 % 100 100 ABG pCO2 60.2 H 37.5 ABG pO2 179 H 391 H* Fred Test NA NA VBG pH VBG pO2 VBG O2 Sat (Calc) VBG O2 Content VBG Base Excess POC Mix VBG pCO2 Pt Tmp Respiration Rate 26 O2 Delivery Device Ambu Vent Minute Volume 18.00 Vent Mode A-C Tidal Volume 550 POC PEEP 5 Blood Gas Notified Whom ED MD OTHER Blood Gas Notified Time 1751 Sodium Potassium Chloride Carbon Dioxide Anion Gap BUN Creatinine Estim Creat Clear Calc Est GFR (MDRD) Af Amer Est GFR (MDRD) Non-Af BUN/Creatinine Ratio Glucose Calcium Magnesium Total Bilirubin Direct Bilirubin AST ALT Alkaline Phosphatase Ammonia Troponin I Total Protein Albumin Globulin Albumin/Globulin Ratio Triglycerides Cholesterol LDL Cholesterol VLDL Cholesterol HDL Cholesterol MRSA (PCR) 01/16/19 01/16/19 01/16/19 19:04 19:10 20:55 WBC RBC Hgb Hct MCV MCH MCHC RDW RDW Differential Plt Count MPV Immature Gran % (Auto) Neut % (Auto) Lymph % (Auto) [facility] % (Auto) Eos % (Auto) Baso % (Auto) Absolute Neuts (auto) Absolute Lymphs (auto) Total Counted Nucleated RBC % Differential Comment Diff Path Review Absolute Retic PT INR APTT Activated Clotting Time 175 H Specimen Type BONNIE Sample Site pH Bicarbonate Actual POC Total CO2 Base Excess O2 Saturation O2 % ABG pCO2 ABG pO2 Fred Test VBG pH 7.25 L VBG pO2 409 H* VBG O2 Sat (Calc) 100 H VBG O2 Content 22 L VBG Base Excess -6 L POC Mix VBG pCO2 Pt Tmp 48.1 Respiration Rate O2 Delivery Device Minute Volume Vent Mode Tidal Volume POC PEEP Blood Gas Notified Whom Blood Gas Notified Time Sodium Potassium Chloride Carbon Dioxide Anion Gap BUN Creatinine Estim Creat Clear Calc Est GFR (MDRD) Af Amer Est GFR (MDRD) Non-Af BUN/Creatinine Ratio Glucose Calcium Magnesium 1.4 L Total Bilirubin Direct Bilirubin AST ALT Alkaline Phosphatase Ammonia Troponin I Total Protein Albumin Globulin Albumin/Globulin Ratio Triglycerides Cholesterol LDL Cholesterol VLDL Cholesterol HDL Cholesterol MRSA (PCR) 01/16/19 01/16/19 01/16/19 20:55 20:55 20:55 WBC 38.6 H* RBC 3.88 L Hgb 12.5 L Hct 36.6 L MCV 94.3 H MCH 32.2 H MCHC 34.2 RDW 14.7 H RDW Differential 49.8 H Plt Count 246 MPV 10.0 Immature Gran % (Auto) Neut % (Auto) Lymph % (Auto) [facility] % (Auto) Eos % (Auto) Baso % (Auto) Absolute Neuts (auto) Absolute Lymphs (auto) Total Counted Nucleated RBC % Differential Comment SCANNED Diff Path Review May foll Absolute Retic PT INR APTT Activated Clotting Time Specimen Type Sample Site pH Bicarbonate Actual POC Total CO2 Base Excess O2 Saturation O2 % ABG pCO2 ABG pO2 Fred Test VBG pH VBG pO2 VBG O2 Sat (Calc) VBG O2 Content VBG Base Excess POC Mix VBG pCO2 Pt Tmp Respiration Rate O2 Delivery Device Minute Volume Vent Mode Tidal Volume POC PEEP Blood Gas Notified Whom Blood Gas Notified Time Sodium Potassium Chloride Carbon Dioxide Anion Gap BUN Creatinine Estim Creat Clear Calc Est GFR (MDRD) Af Amer Est GFR (MDRD) Non-Af BUN/Creatinine Ratio Glucose Calcium Magnesium Total Bilirubin 0.40 Direct Bilirubin < 0.05 AST 399 H ALT 252 H Alkaline Phosphatase 90 Ammonia Troponin I 11.900 H* Total Protein 5.3 L Albumin 2.7 L Globulin 2.6 Albumin/Globulin Ratio Triglycerides Cholesterol LDL Cholesterol VLDL Cholesterol HDL Cholesterol MRSA (PCR) 01/17/19 01/17/19 01/17/19 03:15 03:15 03:15 WBC 21.9 H RBC 4.11 L Hgb 13.0 Hct 39.1 L MCV 95.1 H MCH 31.6 MCHC 33.2 RDW 15.2 H RDW Differential 52.3 H Plt Count 384 MPV 9.3 Immature Gran % (Auto) 0.300 Neut % (Auto) 83.1 H Lymph % (Auto) 6.[address] [place] % (Auto) 9.8 Eos % (Auto) 0.0 Baso % (Auto) 0.0 Absolute Neuts (auto) 18.2 H Absolute Lymphs (auto) 1.49 Total Counted Not Reportable Nucleated RBC % 0.3 Differential Comment Diff Path Review May foll Absolute Retic 0.06 PT INR APTT Activated Clotting Time Specimen Type Sample Site pH Bicarbonate Actual POC Total CO2 Base Excess O2 Saturation O2 % ABG pCO2 ABG pO2 Fred Test VBG pH VBG pO2 VBG O2 Sat (Calc) VBG O2 Content VBG Base Excess POC Mix VBG pCO2 Pt Tmp Respiration Rate O2 Delivery Device Minute Volume Vent Mode Tidal Volume POC PEEP Blood Gas Notified Whom Blood Gas Notified Time Sodium 145 Potassium 5.4 H Chloride 107 Carbon Dioxide 23.0 Anion Gap 15 BUN 26 H Creatinine 2.72 H Estim Creat Clear Calc 34.87 Est GFR (MDRD) Af Amer 32 L Est GFR (MDRD) Non-Af 26 L BUN/Creatinine Ratio 9.6 L Glucose 117 H Calcium 7.5 L Magnesium Total Bilirubin 1.20 H Direct Bilirubin AST 2174 H ALT 1649 H Alkaline Phosphatase 84 Ammonia Troponin I 126.000 H* Total Protein 6.3 L Albumin 3.1 L Globulin 3.2 Albumin/Globulin Ratio 1.0 Triglycerides 64 Cholesterol 170 LDL Cholesterol 112 VLDL Cholesterol 13 HDL Cholesterol 45 MRSA (PCR) 01/17/19 01/17/19 01/17/19 03:15 05:34 08:00 WBC RBC Hgb Hct MCV MCH MCHC RDW RDW Differential Plt Count MPV Immature Gran % (Auto) Neut % (Auto) Lymph % (Auto) [facility] [place] % (Auto) Eos % (Auto) Baso % (Auto) Absolute Neuts (auto) Absolute Lymphs (auto) Total Counted Nucleated RBC % Differential Comment Diff Path Review Absolute Retic PT INR APTT 110.2 H* Activated Clotting Time Specimen Type ART Sample Site L Radial pH 7.40 Bicarbonate Actual 18.8 L POC Total CO2 20 Base Excess -6 L O2 Saturation 99 O2 % 50 ABG pCO2 30.3 L ABG pO2 158 H Fred Test NA VBG pH VBG pO2 VBG O2 Sat (Calc) VBG O2 Content VBG Base Excess POC Mix VBG pCO2 Pt Tmp Respiration Rate 12 O2 Delivery Device Vent Minute Volume 12.00 Vent Mode A-C Tidal Volume 450 POC PEEP 5 Blood Gas Notified Whom [facility] Blood Gas Notified Time Sodium Potassium Chloride Carbon Dioxide Anion Gap BUN Creatinine Estim Creat Clear Calc Est GFR (MDRD) Af Amer Est GFR (MDRD) Non-Af BUN/Creatinine Ratio Glucose Calcium Magnesium Total Bilirubin Direct Bilirubin AST ALT Alkaline Phosphatase Ammonia Troponin I Total Protein Albumin Globulin Albumin/Globulin Ratio Triglycerides Cholesterol LDL Cholesterol VLDL Cholesterol HDL Cholesterol MRSA (PCR) Negative 01/17/19 01/17/19 09:15 09:40 WBC RBC Hgb Hct MCV MCH MCHC RDW RDW Differential Plt Count MPV Immature Gran % (Auto) Neut % (Auto) Lymph % (Auto) [facility] [place] [facility] % (Auto) Eos % (Auto) Baso % (Auto) Absolute Neuts (auto) Absolute Lymphs (auto) Total Counted Nucleated RBC % Differential Comment Diff Path Review Absolute Retic PT INR APTT 48.0 H Activated Clotting Time Specimen Type Sample Site pH Bicarbonate Actual POC Total CO2 Base Excess O2 Saturation O2 % ABG pCO2 ABG pO2 Fred Test VBG pH VBG pO2 VBG O2 Sat (Calc) VBG O2 Content VBG Base Excess POC Mix VBG pCO2 Pt Tmp Respiration Rate O2 Delivery Device Minute Volume Vent Mode Tidal Volume POC PEEP Blood Gas Notified Whom Blood Gas Notified Time Sodium Potassium Chloride Carbon Dioxide Anion Gap BUN Creatinine Estim Creat Clear Calc Est GFR (MDRD) Af Amer Est GFR (MDRD) Non-Af BUN/Creatinine Ratio Glucose Calcium Magnesium Total Bilirubin Direct Bilirubin AST ALT Alkaline Phosphatase Ammonia 62.0 H Troponin I Total Protein Albumin Globulin Albumin/Globulin Ratio Triglycerides Cholesterol LDL Cholesterol VLDL Cholesterol HDL Cholesterol MRSA (PCR) POC Glucose 01/17/19 01/17/19 01/17/19 08:37 06:58 02:07 POC Glucose 115 H 69 L 83 01/16/19 23:03 POC Glucose 122 H Assessment/Plan All Active Problems (Last Updated 01/17/19 @ 09:11 by Tg Simons) ROSSI (acute kidney injury) (Acute) Ischemic cardiomyopathy (Acute) Cardiac arrest with ventricular fibrillation (Acute) Acute anterior wall DE (Acute) Cardiac arrest (Acute) ROSSI. no prior kidney disease as per labs. Due to extended cardiac arrest he has multi organ failure including ROSSI, Acute hepatic failure. anuric. however he has severe hypotension requiring levophed and IABP support. Febrile also. being treated for sepsis. PH is ok. K is borderline. seems to have sustained significant neurological injury due to prolonger anoxia. too unstable for CONG[employer]ATIONAL CARE PASTOR at this time. no acute medical indications either. Hold off on CONG[employer]ATIONAL CARE PASTOR for today. will follow on neurology recommendations regarding further management. Acidosis. better. off bicarbonate drip STEMI. s/p stenting cardiology
[2019-01-17 12:30] LABS: Bedside Glucose 92 mg/dL (70-110)
[2019-01-17] MEDS: Vital AF 1.2 Cal Liquid 1,000 ML 70 ML GT (12:54)
[2019-01-17] MEDS: Lactulose 20 GM/30 ML UDC GT ×2 (12:54→22:02)
[2019-01-17 14:48] LABS: Pathologist Review Reviewed
[2019-01-17 14:52] LABS: Pathologist Review Reviewed
[2019-01-17 14:54] LABS: Pathologist Review Reviewed
[2019-01-17] MEDS: Metoprolol Tartrate 5 MG/5 ML Vial IV (15:43)
[2019-01-17] MEDS: HEPARIN/D5w 25,000 UNITS 25,000 UNITS/250 ML IV.SOLN. 15 UNITS IV (16:37)
[2019-01-17 16:59] LABS: Partial Thromboplast Time 50.3 Seconds (24.1-36.2)
--- NOTE | 2019-01-17 17:04 | CHAPLAIN ---
Type of Pastoral Visit _x__ Initial Visit ___ Follow-up Visit ___ On-call Visit ___ General Patient Visit ___ Spiritual Assessment ___ Family Conference ___ Bereavement ___ Rapid Response ___ Code Blue ___ Other (describe below) Pastoral Care Referral From ___ Patient ___ Family _x__ Nurse ___ Physician ___ Line Assembler ___ Beta Tester _x__ Other (describe below) Sacrament/Intervention ___ Active listening ___ Anointing ___ Scientology ___ Bereavement ___ Communion ___ Norma exploration ___ ___ Life review ___ Prayer ___ Reconciliation ___ Sacrament of Sick ___ Supportive presence ___ Wedding _x__ Other (describe below) Pastoral Comments met with mother of patient in the ICU waiting room after recommendation from his RN and PINKING MACHINE OPERATOR; mother was receptive to spiritual support; time given to listen to mother who gave details of illness and family history; mother has a yazidism connection and thermoforming machine operator and says he is on many prayer chains; mother expresses worry about possible outcome; gave presence and attention; accepts prayer and support as needed in the future; there are other family members who have been to hospital or will be coming back to join mother/patient according to the mother;
[2019-01-17 17:20] LABS: Hematocrit 37.2 % (40-54); Hemoglobin 12.6 g/dl (13.0-16.5); Mean Corp Hgb Conc 33.9 g/gl (32-36); Mean Corpuscular Hgb 31.8 pg (27.0-32.0); Mean Corpuscular Volume 93.9 fL (80-94); Mean Platelet Vol. 9.4 fl (6.2-12.0); Platelet Count 349 K/mm3 (150-450); RBC Distribution Width CV 15.6 % (11.6-14.6); RBC Distribution Width SD 52.4 fl (35.1-43.9); Red Blood Count 3.96 M/mm3 (4.6-6.2); White Blood Count 20.3 K/mm3 (4.4-11.0)
[2019-01-17 17:22] LABS: Scan Indicated on CBC? Y/N NO
[2019-01-17 18:31] LABS: Bedside Glucose 78 mg/dL (70-110)
--- NOTE | 2019-01-17 20:16 | EKG12_ITS ---
Test Reason : AM EKG Blood Pressure : / mmHG Vent. Rate : 105 BPM Atrial Rate : 105 BPM P-R Int : 136 ms QRS Dur : 096 ms QT Int : 374 ms P-R-T Axes : 068 090 -41 degrees QTc Int : [address] & T wave abnormality, consider inferior ischemia Abnormal ECG Confirmed by TYRON CEVALLOS, MARIN ([id number]), editor producer MANAV CASIANO ([id number]) on 01/22/2019 12:36:09 PM Referred By: Junior Martini Confirmed By:MARIN ACKERMAN MD
[2019-01-17] MEDS: Carvedilol 3.125 MG TABLET PO (22:01)
[2019-01-18] VITALS (52 sets, daily range): BP systolic 69–157; BP diastolic 29–94; PULSE 100–118; RESP 41–55; TEMP 36.6–39.3; O2SAT 88–100
[2019-01-18 00:06] LABS: Bedside Glucose 91 mg/dL (70-110)
[2019-01-18] MEDS: Petrolatum,White 3.75GM OPTH.TUBE 1 APPLIC OPHTHALMIC ×4 (01:00→17:41)
[2019-01-18 01:47] LABS: Partial Thromboplast Time 51.6 Seconds (24.1-36.2)
[2019-01-18] MEDS: Heparin Injection (Vial) 5,000 UNIT/ML VIAL IV (02:04)
[2019-01-18] MEDS: Albuterol 2.5 MG/3 ML VIAL.NEB. INHALATION (02:20)
[2019-01-18 04:12] LABS: Hematocrit 36.2 % (40-54); Hemoglobin 12.5 g/dl (13.0-16.5); Mean Corp Hgb Conc 34.5 g/gl (32-36); Mean Corpuscular Hgb 32.2 pg (27.0-32.0); Mean Corpuscular Volume 93.3 fL (80-94); Mean Platelet Vol. 9.7 fl (6.2-12.0); Platelet Count 356 K/mm3 (150-450); RBC Distribution Width CV 15.6 % (11.6-14.6); RBC Distribution Width SD 51.6 fl (35.1-43.9); Red Blood Count 3.88 M/mm3 (4.6-6.2); White Blood Count 18.3 K/mm3 (4.4-11.0)
[2019-01-18 04:13] LABS: Scan Indicated on CBC? Y/N NO
[2019-01-18 04:25] LABS: Anion Gap 16 (5-15); BUN 76 mg/dL (7-18); BUN/Creat Ratio 13.8 RATIO (10-20); Calcium,Total 6.9 mg/dL (8.5-10.1); Chloride 105 mmol/L (98-107); Creatinine, Serum 5.49 mg/dL (0.70-1.30); EST Glomerular Filtration Rate 12 mL/min (>60); Est Glom Filt Rate - Afr Amer 14 mL/min (>60); Estimated Creatinine Clearance 17.28 ml/min; Glucose 101 mg/dL (74-106); Potassium 5.2 mmol/L (3.5-5.1); Sodium Level 142 mmol/L (136-145)
[2019-01-18] MEDS: CHLORHEXIDINE GLUC 2% CLOTH 1 EACH TOWELETTE TOPICAL (05:05)
--- NOTE | 2019-01-18 05:55 | RAD_ITS ---
STUDY: X-RAY CHEST REASON FOR EXAM: Male, 53 years old. Respiratory failure TECHNIQUE: Single AP portable view of the chest. COMPARISON: Yesterday FINDINGS: ET tube is 4 cm above the gasper, NG tube tip not seen but is below the diaphragm. EKG leads overlie the chest. A right-sided PICC line has been placed, tip is in the distal SVC. Percutaneous pacemaker pad no longer identified. The lungs are clear and expanded. There is no demonstrated pleural abnormality. Normal size heart. Normal mediastinum and magnus. Normal visualized pulmonary arteries. Normal visualized aortic arch and descending thoracic aorta. Normal visualized thoracic spine. Normal visualized ribs, clavicles, and shoulders. There is no demonstrated abnormality of the visualized soft tissue structures of the upper abdomen. RAD/Chest 1 View (Portable) IMPRESSION: No acute pulmonary process Stable appearance of the support lines and tubes. Electronically Signed: Romeo Esposito MD at 8:01 EDT , Service support ,
--- NOTE | 2019-01-18 06:00 | NURSING ---
Irrigated F/C w/40ml
[2019-01-18 06:06] LABS: Bedside Glucose 87 mg/dL (70-110)
--- NOTE | 2019-01-18 06:49 | PN_ITS ---
Subjective: The patient was seen and examined at the bedside this morning. Events from the last 24 hours have been reviewed. The patient is currently afebrile, hemodynamically stable and maintaining appropriate oxygen saturations with an FiO2 requirement of 45%. The patient is no longer requiring vasopressor support. He remains neurologically unchanged. Potassium is elevated this morning at 5.2. Creatinine has increased significantly to 5.49. The patient is currently documented to be overall net +3.5 L for the admission. IABP remains in place. Objective: The patient's most recent lab work, culture data and imaging studies have all been personally reviewed. Surface echocardiogram revealed a moderately dilated LV with an ejection fraction of 25 to 30%, along with stage I diastolic dysfunction. The RV was also moderately dilated. Right ventricular systolic pressure was estimated to be 35 mmHg. Blood and urine cultures are currently pending. General: - - Remains intubated and mechanically ventilated. Neurologically unchanged from previous. HEENT: Atraumatic, Normocephalic, Sluggish Pupils Oral: Dry Mucosa, - - Dried, crusted blood remains in nares and oropharynx. Neck: Supple, No Nodes, Trachea Midline Lungs: - - Significant tachypnea, overbreathing set rate on ventilator. Diminished air movement bilaterally. Cardiovascular: Normal S1, Normal S2, No murmurs, Tachycardic Abdomen: Soft, Non Tender, Hypoactive Bowel Sounds, Obese Extremities: No clubbing, No cyanosis, Cool, Diminished Peripheral Pulses, Edema Skin: - - There continue to be scattered circumscribed excoriations over extremities and trunk. Lower extremities appear mottled. Musculoskeletal: No Muscle Wasting Lymphatic: No Cervical, Supraclavicular, or Inguinal Adenopathy Neurological: - - The patient remains unresponsive to verbal and tactile stimulation. No corneal reflex present. No gag. Continues to over breathe set rate on ventilator. Vital Signs Temp Pulse Resp BP Pulse Ox 98 F 110 H 49 H 134/77 H 97 01/18/19 06:00 01/18/19 06:00 01/18/19 06:00 01/18/19 06:00 01/18/19 06:00 Oxygen Flow Rate (L/min) 40 Oxygen Delivery Method Mechanical Ventilator Weight: 242 lb 4.608 oz Body Mass Index (BMI) 33.3 Finger Stick Blood Glucose 87 Intake and Output for Last 24 Hours 01/16/19 01/17/19 01/18/19 23:59 23:59 23:59 Intake Total 1114.6 / 1114.6 2505.4 / 2505.4 607.0 / 607.0 Output Total 395 / 395 186 / 186 97 / 97 Balance 719.6 / 719.6 2319.4 / 2319.4 510.0 / 510.0 Labs (Last 48 Hours) 01/16/19 01/16/19 01/16/19 17:31 17:31 17:31 WBC 17.9 H RBC 3.94 L Hgb 12.6 L Hct 38.5 L MCV 97.7 H MCH 32.0 MCHC 32.7 RDW 14.6 RDW Differential 51.9 H Plt Count 278 MPV 9.6 Immature Gran % (Auto) 2.200 H Neut % (Auto) 53.3 Lymph % (Auto) 37.6 Carlton % (Auto) 5.2 Eos % (Auto) 1.3 Baso % (Auto) 0.4 Absolute Neuts (auto) 9.5 H Absolute Lymphs (auto) 6.71 H Total Counted Not Reportable Nucleated RBC % 0.6 Differential Comment SCANNED Diff Path Review Reviewed Absolute Retic 0.10 PT 16.3 H INR 1.3 APTT 44.1 H Activated Clotting Time Specimen Type Sample Site pH Bicarbonate Actual POC Total CO2 Base Excess O2 Saturation O2 % ABG pCO2 ABG pO2 Fred Test VBG pH VBG pO2 VBG O2 Sat (Calc) VBG O2 Content VBG Base Excess POC Mix VBG pCO2 Pt Tmp Respiration Rate O2 Delivery Device Minute Volume Vent Mode Tidal Volume POC PEEP Blood Gas Notified Whom Blood Gas Notified Time Sodium 144 Potassium 3.5 Chloride 108 H Carbon Dioxide 21.0 Anion Gap 15 BUN 16 Creatinine 1.57 H Estim Creat Clear Calc Est GFR (MDRD) Af Amer 60 Est GFR (MDRD) Non-Af 49 L BUN/Creatinine Ratio 10.2 Glucose 272 H Calcium 8.6 Magnesium Total Bilirubin Direct Bilirubin AST ALT Alkaline Phosphatase Ammonia Troponin I 0.463 H Total Protein Albumin Globulin Albumin/Globulin Ratio Triglycerides Cholesterol LDL Cholesterol VLDL Cholesterol HDL Cholesterol MRSA (PCR) POC Glucose 01/16/19 01/16/19 01/16/19 18:00 18:26 18:32 WBC RBC Hgb Hct MCV MCH MCHC RDW RDW Differential Plt Count MPV Immature Gran % (Auto) Neut % (Auto) Lymph % (Auto) Carlton % (Auto) Eos % (Auto) Baso % (Auto) Absolute Neuts (auto) Absolute Lymphs (auto) Total Counted Nucleated RBC % Differential Comment Diff Path Review Absolute Retic PT INR APTT Activated Clotting Time 158 H Specimen Type ART ART Sample Site L Femoral R Femoral pH 7.03 L* 7.26 L Bicarbonate Actual 15.9 L 16.8 L POC Total CO2 18 18 Base Excess -15 L -10 L O2 Saturation 99 100 H O2 % 100 100 ABG pCO2 60.2 H 37.5 ABG pO2 179 H 391 H* Fred Test NA NA VBG pH VBG pO2 VBG O2 Sat (Calc) VBG O2 Content VBG Base Excess POC Mix VBG pCO2 Pt Tmp Respiration Rate 26 O2 Delivery Device Ambu Vent Minute Volume 18.00 Vent Mode A-C Tidal Volume 550 POC PEEP 5 Blood Gas Notified Whom ED MD OTHER Blood Gas Notified Time 1751 Sodium Potassium Chloride Carbon Dioxide Anion Gap BUN Creatinine Estim Creat Clear Calc Est GFR (MDRD) Af Amer Est GFR (MDRD) Non-Af BUN/Creatinine Ratio Glucose Calcium Magnesium Total Bilirubin Direct Bilirubin AST ALT Alkaline Phosphatase Ammonia Troponin I Total Protein Albumin Globulin Albumin/Globulin Ratio Triglycerides Cholesterol LDL Cholesterol VLDL Cholesterol HDL Cholesterol MRSA (PCR) POC Glucose 01/16/19 01/16/19 01/16/19 19:04 19:10 20:55 WBC RBC Hgb Hct MCV MCH MCHC RDW RDW Differential Plt Count MPV Immature Gran % (Auto) Neut % (Auto) Lymph % (Auto) Carlton % (Auto) Eos % (Auto) Baso % (Auto) Absolute Neuts (auto) Absolute Lymphs (auto) Total Counted Nucleated RBC % Differential Comment Diff Path Review Absolute Retic PT INR APTT Activated Clotting Time 175 H Specimen Type BONNIE Sample Site pH Bicarbonate Actual POC Total CO2 Base Excess O2 Saturation O2 % ABG pCO2 ABG pO2 Fred Test VBG pH 7.25 L VBG pO2 409 H* VBG O2 Sat (Calc) 100 H VBG O2 Content 22 L VBG Base Excess -6 L POC Mix VBG pCO2 Pt Tmp 48.1 Respiration Rate O2 Delivery Device Minute Volume Vent Mode Tidal Volume POC PEEP Blood Gas Notified Whom Blood Gas Notified Time Sodium Potassium Chloride Carbon Dioxide Anion Gap BUN Creatinine Estim Creat Clear Calc Est GFR (MDRD) Af Amer Est GFR (MDRD) Non-Af BUN/Creatinine Ratio Glucose Calcium Magnesium 1.4 L Total Bilirubin Direct Bilirubin AST ALT Alkaline Phosphatase Ammonia Troponin I Total Protein Albumin Globulin Albumin/Globulin Ratio Triglycerides Cholesterol LDL Cholesterol VLDL Cholesterol HDL Cholesterol MRSA (PCR) POC Glucose 01/16/19 01/16/19 01/16/19 20:55 20:55 20:55 WBC 38.6 H* RBC 3.88 L Hgb 12.5 L Hct 36.6 L MCV 94.3 H MCH 32.2 H MCHC 34.2 RDW 14.7 H RDW Differential 49.8 H Plt Count 246 MPV 10.0 Immature Gran % (Auto) Neut % (Auto) Lymph % (Auto) Carlton % (Auto) Eos % (Auto) Baso % (Auto) Absolute Neuts (auto) Absolute Lymphs (auto) Total Counted Nucleated RBC % Differential Comment SCANNED Diff Path Review Reviewed Absolute Retic PT INR APTT Activated Clotting Time Specimen Type Sample Site pH Bicarbonate Actual POC Total CO2 Base Excess O2 Saturation O2 % ABG pCO2 ABG pO2 Fred Test VBG pH VBG pO2 VBG O2 Sat (Calc) VBG O2 Content VBG Base Excess POC Mix VBG pCO2 Pt Tmp Respiration Rate O2 Delivery Device Minute Volume Vent Mode Tidal Volume POC PEEP Blood Gas Notified Whom Blood Gas Notified Time Sodium Potassium Chloride Carbon Dioxide Anion Gap BUN Creatinine Estim Creat Clear Calc Est GFR (MDRD) Af Amer Est GFR (MDRD) Non-Af BUN/Creatinine Ratio Glucose Calcium Magnesium Total Bilirubin 0.40 Direct Bilirubin < 0.05 AST 399 H ALT 252 H Alkaline Phosphatase 90 Ammonia Troponin I 11.900 H* Total Protein 5.3 L Albumin 2.7 L Globulin 2.6 Albumin/Globulin Ratio Triglycerides Cholesterol LDL Cholesterol VLDL Cholesterol HDL Cholesterol MRSA (PCR) POC Glucose 01/16/19 01/17/19 01/17/19 23:03 02:07 03:15 WBC 21.9 H RBC 4.11 L Hgb 13.0 Hct 39.1 L MCV 95.1 H MCH 31.6 MCHC 33.2 RDW 15.2 H RDW Differential 52.3 H Plt Count 384 MPV 9.3 Immature Gran % (Auto) 0.300 Neut % (Auto) 83.1 H Lymph % (Auto) 6.8 L Carlton % (Auto) 9.8 Eos % (Auto) 0.0 Baso % (Auto) 0.0 Absolute Neuts (auto) 18.2 H Absolute Lymphs (auto) 1.49 Total Counted Not Reportable Nucleated RBC % 0.3 Differential Comment Diff Path Review Reviewed Absolute Retic 0.06 PT INR APTT Activated Clotting Time Specimen Type Sample Site pH Bicarbonate Actual POC Total CO2 Base Excess O2 Saturation O2 % ABG pCO2 ABG pO2 Fred Test VBG pH VBG pO2 VBG O2 Sat (Calc) VBG O2 Content VBG Base Excess POC Mix VBG pCO2 Pt Tmp Respiration Rate O2 Delivery Device Minute Volume Vent Mode Tidal Volume POC PEEP Blood Gas Notified Whom Blood Gas Notified Time Sodium Potassium Chloride Carbon Dioxide Anion Gap BUN Creatinine Estim Creat Clear Calc Est GFR (MDRD) Af Amer Est GFR (MDRD) Non-Af BUN/Creatinine Ratio Glucose Calcium Magnesium Total Bilirubin Direct Bilirubin AST ALT Alkaline Phosphatase Ammonia Troponin I Total Protein Albumin Globulin Albumin/Globulin Ratio Triglycerides Cholesterol LDL Cholesterol VLDL Cholesterol HDL Cholesterol MRSA (PCR) POC Glucose 122 H 83 01/17/19 01/17/19 01/17/19 03:15 03:15 03:15 WBC RBC Hgb Hct MCV MCH MCHC RDW RDW Differential Plt Count MPV Immature Gran % (Auto) Neut % (Auto) Lymph % (Auto) Carlton % (Auto) Eos % (Auto) Baso % (Auto) Absolute Neuts (auto) Absolute Lymphs (auto) Total Counted Nucleated RBC % Differential Comment Diff Path Review Absolute Retic PT INR APTT 110.2 H* Activated Clotting Time Specimen Type Sample Site pH Bicarbonate Actual POC Total CO2 Base Excess O2 Saturation O2 % ABG pCO2 ABG pO2 Fred Test VBG pH VBG pO2 VBG O2 Sat (Calc) VBG O2 Content VBG Base Excess POC Mix VBG pCO2 Pt Tmp Respiration Rate O2 Delivery Device Minute Volume Vent Mode Tidal Volume POC PEEP Blood Gas Notified Whom Blood Gas Notified Time Sodium 145 Potassium 5.4 H Chloride 107 Carbon Dioxide 23.0 Anion Gap 15 BUN 26 H Creatinine 2.72 H Estim Creat Clear Calc 34.87 Est GFR (MDRD) Af Amer 32 L Est GFR (MDRD) Non-Af 26 L BUN/Creatinine Ratio 9.6 L Glucose 117 H Calcium 7.5 L Magnesium Total Bilirubin 1.20 H Direct Bilirubin AST 2174 H ALT 1649 H Alkaline Phosphatase 84 Ammonia Troponin I 126.000 H* Total Protein 6.3 L Albumin 3.1 L Globulin 3.2 Albumin/Globulin Ratio 1.0 Triglycerides 64 Cholesterol 170 LDL Cholesterol 112 VLDL Cholesterol 13 HDL Cholesterol 45 MRSA (PCR) POC Glucose 01/17/19 01/17/19 01/17/19 05:34 06:58 08:00 WBC RBC Hgb Hct MCV MCH MCHC RDW RDW Differential Plt Count MPV Immature Gran % (Auto) Neut % (Auto) Lymph % (Auto) Carlton % (Auto) Eos % (Auto) Baso % (Auto) Absolute Neuts (auto) Absolute Lymphs (auto) Total Counted Nucleated RBC % Differential Comment Diff Path Review Absolute Retic PT INR APTT Activated Clotting Time Specimen Type ART Sample Site L Radial pH 7.40 Bicarbonate Actual 18.8 L POC Total CO2 20 Base Excess -6 L O2 Saturation 99 O2 % 50 ABG pCO2 30.3 L ABG pO2 158 H Frde Test NA VBG pH VBG pO2 VBG O2 Sat (Calc) VBG O2 Content VBG Base Excess POC Mix VBG pCO2 Pt Tmp Respiration Rate 12 O2 Delivery Device Vent Minute Volume 12.00 Vent Mode A-C Tidal Volume 450 POC PEEP 5 Blood Gas Notified Whom HOSP MD Blood Gas Notified Time Sodium Potassium Chloride Carbon Dioxide Anion Gap BUN Creatinine Estim Creat Clear Calc Est GFR (MDRD) Af Amer Est GFR (MDRD) Non-Af BUN/Creatinine Ratio Glucose Calcium Magnesium Total Bilirubin Direct Bilirubin AST ALT Alkaline Phosphatase Ammonia Troponin I Total Protein Albumin Globulin Albumin/Globulin Ratio Triglycerides Cholesterol LDL Cholesterol VLDL Cholesterol HDL Cholesterol MRSA (PCR) Negative POC Glucose 69 L 01/17/19 01/17/19 01/17/19 08:37 09:15 09:40 WBC RBC Hgb Hct MCV MCH MCHC RDW RDW Differential Plt Count MPV Immature Gran % (Auto) Neut % (Auto) Lymph % (Auto) Carlton % (Auto) Eos % (Auto) Baso % (Auto) Absolute Neuts (auto) Absolute Lymphs (auto) Total Counted Nucleated RBC % Differential Comment Diff Path Review Absolute Retic PT INR APTT 48.0 H Activated Clotting Time Specimen Type Sample Site pH Bicarbonate Actual POC Total CO2 Base Excess O2 Saturation O2 % ABG pCO2 ABG pO2 Fred Test VBG pH VBG pO2 VBG O2 Sat (Calc) VBG O2 Content VBG Base Excess POC Mix VBG pCO2 Pt Tmp Respiration Rate O2 Delivery Device Minute Volume Vent Mode Tidal Volume POC PEEP Blood Gas Notified Whom Blood Gas Notified Time Sodium Potassium Chloride Carbon Dioxide Anion Gap BUN Creatinine Estim Creat Clear Calc Est GFR (MDRD) Af Amer Est GFR (MDRD) Non-Af BUN/Creatinine Ratio Glucose Calcium Magnesium Total Bilirubin Direct Bilirubin AST ALT Alkaline Phosphatase Ammonia 62.0 H Troponin I Total Protein Albumin Globulin Albumin/Globulin Ratio Triglycerides Cholesterol LDL Cholesterol VLDL Cholesterol HDL Cholesterol MRSA (PCR) POC Glucose 115 H 01/17/19 01/17/19 01/17/19 12:19 16:40 17:15 WBC 20.3 H RBC 3.96 L Hgb 12.6 L Hct 37.2 L MCV 93.9 MCH 31.8 MCHC 33.9 RDW 15.6 H RDW Differential 52.4 H Plt Count 349 MPV 9.4 Immature Gran % (Auto) Neut % (Auto) Lymph % (Auto) Carlton % (Auto) Eos % (Auto) Baso % (Auto) Absolute Neuts (auto) Absolute Lymphs (auto) Total Counted Nucleated RBC % Differential Comment Diff Path Review Absolute Retic PT INR APTT 50.3 H Activated Clotting Time Specimen Type Sample Site pH Bicarbonate Actual POC Total CO2 Base Excess O2 Saturation O2 % ABG pCO2 ABG pO2 Fred Test VBG pH VBG pO2 VBG O2 Sat (Calc) VBG O2 Content VBG Base Excess POC Mix VBG pCO2 Pt Tmp Respiration Rate O2 Delivery Device Minute Volume Vent Mode Tidal Volume POC PEEP Blood Gas Notified Whom Blood Gas Notified Time Sodium Potassium Chloride Carbon Dioxide Anion Gap BUN Creatinine Estim Creat Clear Calc Est GFR (MDRD) Af Amer Est GFR (MDRD) Non-Af BUN/Creatinine Ratio Glucose Calcium Magnesium Total Bilirubin Direct Bilirubin AST ALT Alkaline Phosphatase Ammonia Troponin I Total Protein Albumin Globulin Albumin/Globulin Ratio Triglycerides Cholesterol LDL Cholesterol VLDL Cholesterol HDL Cholesterol MRSA (PCR) POC Glucose 92 01/17/19 01/17/19 01/18/19 18:21 23:49 01:25 WBC RBC Hgb Hct MCV MCH MCHC RDW RDW Differential Plt Count MPV Immature Gran % (Auto) Neut % (Auto) Lymph % (Auto) Carlton % (Auto) Eos % (Auto) Baso % (Auto) Absolute Neuts (auto) Absolute Lymphs (auto) Total Counted Nucleated RBC % Differential Comment Diff Path Review Absolute Retic PT INR APTT 51.6 H Activated Clotting Time Specimen Type Sample Site pH Bicarbonate Actual POC Total CO2 Base Excess O2 Saturation O2 % ABG pCO2 ABG pO2 Fred Test VBG pH VBG pO2 VBG O2 Sat (Calc) VBG O2 Content VBG Base Excess POC Mix VBG pCO2 Pt Tmp Respiration Rate O2 Delivery Device Minute Volume Vent Mode Tidal Volume POC PEEP Blood Gas Notified Whom Blood Gas Notified Time Sodium Potassium Chloride Carbon Dioxide Anion Gap BUN Creatinine Estim Creat Clear Calc Est GFR (MDRD) Af Amer Est GFR (MDRD) Non-Af BUN/Creatinine Ratio Glucose Calcium Magnesium Total Bilirubin Direct Bilirubin AST ALT Alkaline Phosphatase Ammonia Troponin I Total Protein Albumin Globulin Albumin/Globulin Ratio Triglycerides Cholesterol LDL Cholesterol VLDL Cholesterol HDL Cholesterol MRSA (PCR) POC Glucose 78 91 01/18/19 01/18/19 01/18/19 03:50 03:50 06:00 WBC 18.3 H RBC 3.88 L Hgb 12.5 L Hct 36.2 L MCV 93.3 MCH 32.2 H MCHC 34.5 RDW 15.6 H RDW Differential 51.6 H Plt Count 356 MPV 9.7 Immature Gran % (Auto) Neut % (Auto) Lymph % (Auto) Carlton % (Auto) Eos % (Auto) Baso % (Auto) Absolute Neuts (auto) Absolute Lymphs (auto) Total Counted Nucleated RBC % Differential Comment Diff Path Review Absolute Retic PT INR APTT Activated Clotting Time Specimen Type Sample Site pH Bicarbonate Actual POC Total CO2 Base Excess O2 Saturation O2 % ABG pCO2 ABG pO2 Fred Test VBG pH VBG pO2 VBG O2 Sat (Calc) VBG O2 Content VBG Base Excess POC Mix VBG pCO2 Pt Tmp Respiration Rate O2 Delivery Device Minute Volume Vent Mode Tidal Volume POC PEEP Blood Gas Notified Whom Blood Gas Notified Time Sodium 142 Potassium 5.2 H Chloride 105 Carbon Dioxide 21.0 Anion Gap 16 H BUN 76 H Creatinine 5.49 H Estim Creat Clear Calc 17.28 Est GFR (MDRD) Af Amer 14 L Est GFR (MDRD) Non-Af 12 L BUN/Creatinine Ratio 13.8 Glucose 101 Calcium 6.9 L Magnesium Total Bilirubin Direct Bilirubin AST ALT Alkaline Phosphatase Ammonia Troponin I Total Protein Albumin Globulin Albumin/Globulin Ratio Triglycerides Cholesterol LDL Cholesterol VLDL Cholesterol HDL Cholesterol MRSA (PCR) POC Glucose 87 Clinical Impression(s) from Imaging Studies Chest X-Ray 01/16/19 17:57 IMPRESSION: The majority of the chest is obscured by an electromechanical device, probably an automated CPR device. The exam is completely nondiagnostic Electronically Signed: Julian Silva MD at 12:41 EDT , Service support , KUB X-Ray 01/16/19 18:05 IMPRESSION: Nonvisualization of orogastric tube within the upper abdomen.. Repeat film with better positioning recommended for further evaluation Electronically Signed: Dave Dodson MD at 19:04 EDT , Service support , KUB X-Ray 01/16/19 20:30 IMPRESSION: NG tube present with tip in proximal gastric fundus Electronically Signed: Dave Dodson MD at 20:58 EDT , Service support , Chest X-Ray 01/17/19 05:07 IMPRESSION: Lines as above. No pulmonary edema, congestive heart failure or confluent pneumonia. Electronically Signed: Amber Mcdonald MD at 5:38 EDT , Service support , Medical Necessity - Tobacco Use Smoking Status: Current every day smoker Tobacco Use: Cigarettes Assessment/Plan All Active Problems (Last Updated 01/17/19 @ 09:11 by Tg Simons) ROSSI (acute kidney injury) (Acute) Ischemic cardiomyopathy (Acute) Cardiac arrest with ventricular fibrillation (Acute) Acute anterior wall WV (Acute) Cardiac arrest (Acute) RECOMMENDATIONS: 1. Continue current supportive measures including invasive mechanical ventilatory support. 2. Obtain CT head, if feasible. 3. Continue current antimicrobial therapy, pending infectious work-up. 4. Continue lactulose, given impaired hepatic function and elevated ammonia. 5. Continue tube feeds as tolerated. 6. Continue to withhold all sedating medications. 7. Continue appropriate ICU prophylaxis. IMPRESSIONS: 1. Out of hospital cardiac arrest/STEMI/coronary artery disease status post PCI w/ ALLAN x 2/acute systolic heart failure The patient presented with an out of hospital V. fib cardiac arrest. He was subsequently found to have a STEMI and underwent cardiac catheterization with drug-eluting stent placement x2 to his LAD. He has evidence of acute systolic heart failure with an intra-aortic balloon pump in place. We will continue current supportive measures per cardiology recommendations. Intra-aortic balloon pump augmentation has been changed to 1:4, in hopes that it could potentially be removed today. 2. Acute respiratory failure The patient was emergently intubated in the setting of #1. He remains on appropriate ventilator settings, but continues to overbreathing the set rate, likely as a consequence of underlying neurological injury. He remains on antibiotics for coverage of potential aspiration. Continue tube feeds as ordered. 3. Acute kidney injury/hyperkalemia Likely secondary to ischemic ATN in the setting of #1. The patient is essentially anuric at this time. Nephrology is following to assist with management. 4. Acute liver injury Again, likely secondary to hemodynamic instability in the setting of #1. We will continue current supportive measures and attempt to maintain hemodynamic stability. Anticipate improvement with time. 5. Encephalopathy Clinical concern for potential anoxic brain injury. The patient did have a prolonged downtime. At this time, however, it is too early to prognosticate. We will plan to continue current supportive measures for patient and will reevaluate the patient's neurological status at the 72-hour time kim. In the interim, we will continue to withhold all potential sedating medications. Continue lactulose, given hepatic impairment and subsequent hyperammonemia. Neurology is currently following to assist with management. Given that the patient no longer appears to have protective reflexes intact, will attempt to obtain a CT head today. TIME: 45 minutes of critical care time, independent of procedures, was spent addressing the patient's ischemic cardiomyopathy status post PCI, acute systolic heart failure, acute respiratory failure, acute kidney injury, acute liver injury, encephalopathy, review of all data and collaboration with the care team. ([id number]) Code Visit [id number]: [id number] Critical care first hour
--- NOTE | 2019-01-18 07:22 | CT_ITS ---
STUDY: CT BRAIN WITHOUT CONTRAST REASON FOR EXAM: Male, 53 years old. Altered mental status, recent [place] RADIATION DOSAGE (If Supplied By Facility): CTDIvol = ( 44.99 ) mGy, DLP = ( 832.67 ) mGycm TECHNIQUE: Transaxial CT imaging of the brain was performed without administration of intravenous contrast material. Individualized dose optimization techniques were used for this CT. COMPARISON: No relevant priors. FINDINGS: Hyperdensity noted in the cerebral hemispheres consistent with subarachnoid hemorrhage. This is most likely from ruptured aneurysm or vascular malformation though the etiology of this hemorrhage is not apparent on this study. Additionally, there is some loss of the espinosa-white differentiation in the cerebral hemispheres which is suggestive of anoxia. There is no midline shift. The ventricles are normal size and caliber, the quadrigeminal plate cistern is patent. No skull fracture or scalp hematoma noted. Paranasal sinusitis noted Patient is intubated. CT/Brain/Head without Contrast IMPRESSION: Acute subarachnoid hemorrhage Some loss of the espinosa-white matter differentiation suggestive of anoxia No midline shift or significant mass effect Paranasal sinusitis Findings discussed with ICU nurse prior to dictation N.B. : The above information has been verbally conveyed by Romeo Esposito MD to ABIGAIL MONTEJO, on 01/18/2019 14:46:38 (ET). Electronically Signed: Romeo Esposito MD at 14:47 EDT , Service support ,
[2019-01-18 07:50] LABS: Magnesium 2.3 mg/dL (1.6-2.6)
--- NOTE | 2019-01-18 07:59 | PN_ITS ---
Patient Problems: Active and Suspected Problems (Last Updated 01/17/19 @ 09:11 by Tg Simons) ROSSI (acute kidney injury) (Acute) Anoxic brain injury (Suspected) Ischemic cardiomyopathy (Acute) EF 15% per cath post NM and Vfib arrest 01/16/19 Cardiac arrest with ventricular fibrillation (Acute) Acute anterior wall NM (Acute) Cardiac arrest (Acute) Subjective: Patient seen remains unresponsive on the vent. IABP, still in place patient did require pressors the day prior which has since been weaned off. Kidney function continues to worsen Objective: GENERAL: Unresponsive on the vent HEENT: Atraumatic; ET tube in place EYES; edema of the conjunctiva NECK; supple, normal thyroid, RESPIRATORY: Diminished to auscultation bilaterally, tachypneic CARDIOVASCULAR: Regular S1 S2, GI: soft, non-tender, normoactive bowel sounds, EXTREMITIES: edema, no clubbing, no cyanosis. NEURO: Unresponsive on the vent SKIN: Multiple healing scabs on both upper extremities and lower extremities as well as trunk PSYCH; unable to assess Vitals/I&O's: Vital Signs Temp Pulse Resp BP Pulse Ox 101.1 F H 115 H 42 H 157/94 H 100 01/18/19 07:00 01/18/19 07:00 01/18/19 07:00 01/18/19 07:00 01/18/19 07:00 Oxygen Flow Rate (L/min) 40 Oxygen Delivery Method Mechanical Ventilator Weight: 109.9 kg Body Mass Index (BMI) 33.3 Finger Stick Blood Glucose 87 Intake and Output for Last 24 Hours 01/16/19 01/17/19 01/18/19 23:59 23:59 23:59 Intake Total 1114.6 / 1114.6 2505.4 / 2505.4 688.4 / 688.4 Output Total 395 / 395 186 / 186 103 / 103 Balance 719.6 / 719.6 2319.4 / 2319.4 585.4 / 585.4 Laboratory Results 01/16/19 17:31: Diff Path Review Reviewed 01/16/19 20:55: Diff Path Review Reviewed 01/17/19 03:15: Diff Path Review Reviewed 01/17/19 08:00: MRSA (PCR) Negative 01/17/19 08:37: POC Glucose 115 H 01/17/19 09:15: Ammonia 62.0 H 01/17/19 09:40: APTT 48.0 H 01/17/19 12:19: POC Glucose 92 01/17/19 16:40: APTT 50.3 H 01/17/19 17:15: WBC 20.3 H, RBC 3.96 L, Hgb 12.6 L, Hct 37.2 L, MCV 93.9, MCH 31.8, MCHC 33.9, RDW 15.6 H, RDW Differential 52.4 H, Plt Count 349, MPV 9.4 01/17/19 18:21: POC Glucose 78 01/17/19 23:49: POC Glucose 91 01/18/19 01:25: APTT 51.6 H 01/18/19 03:50: WBC 18.3 H, RBC 3.88 L, Hgb 12.5 L, Hct 36.2 L, MCV 93.3, MCH 32.2 H, MCHC 34.5, RDW 15.6 H, RDW Differential 51.6 H, Plt Count 356, MPV 9.7 01/18/19 03:50: Sodium 142, Potassium 5.2 H, Chloride 105, Carbon Dioxide 21.0, Anion Gap 16 H, BUN 76 H, Creatinine 5.49 H, Estim Creat Clear Calc 17.28, Est GFR (MDRD) Af Amer 14 L, Est GFR (MDRD) Non-Af 12 L, BUN/Creatinine Ratio 13.8, Glucose 101, Calcium 6.9 L 01/18/19 03:50: Magnesium 2.3 01/18/19 06:00: POC Glucose 87 Current Medications Albuterol Sulfate (Ventolin Aerosols) 2.5 mg INHALATION Q2H PRN PRN PRN Reason: dyspnea, wheezing Last Admin: 01/18/19 02:20 Dose: 2.5 mg Aspirin (Aspirin, Baby) 81 mg GT DAILY@0800 [facility] Atropine Sulfate () 0.5 mg IV UD PRN PRN Reason: HR <50 bpm Carvedilol (Coreg) 3.125 mg PO BID [facility] Last Admin: 01/17/19 22:01 Dose: 3.125 mg Chlorhexidine Gluconate () 15 ml PO BID [facility] Last Admin: 01/17/19 21:43 Dose: 15 ml Chlorhexidine Gluconate () 1 each TOPICAL DAILY [facility] Last Admin: 01/18/19 05:05 Dose: 1 each Famotidine (Pepcid) 20 mg GT BID [facility] Last Admin: 01/17/19 21:52 Dose: 20 mg Furosemide (Lasix) 40 mg IV DAILY [facility] Last Admin: 01/17/19 10:14 Dose: 40 mg Heparin Sodium (Beef Lung) (Heparin 500 Unit/5 Ml (100/Ml)) 500 unit IV UD PRN PRN Reason: HEPARIN FLUSH Heparin Sodium (Porcine) (Heparin Na) 0 unit IV UD PRN; Protocol Last Admin: 01/18/19 02:04 Dose: 1,000 unit Heparin Sodium/Sodium Chloride () 2,000 units IV UD [facility] Last Admin: 01/17/19 20:47 Dose: Not Given Hydralazine HCl (Apresoline Iv) 10 mg IV Q4H PRN PRN PRN Reason: SBP > 160 Heparin Sodium/Dextrose () 25,000 units in 250 mls @ 15 mls/hr IV .[id number] [facility]; Protocol Last Admin: 01/18/19 06:20 Dose: Not Given Sodium Chloride () 250 mls @ 15 mls/hr IV .[id number] PRN PRN Reason: SALINE FLUSH Last Admin: 01/17/19 01:23 Dose: 15 mls/hr Piperacillin Sod/Tazobactam (Sod 3.375 gm/ Sodium Chloride) 50 mls @ 12.5 mls/hr IV Q8 [facility] Last Admin: 01/18/19 05:06 Dose: 12.5 mls/hr Enteral Nutritional Formula (Vital Af 1.2 Brent Liquid) 1,000 mls @ 70 mls/hr GT .[id number] [facility] Last Admin: 01/18/19 03:12 Dose: Not Given Labetalol HCl (Trandate) 5 mg IV X1 PRN PRN Reason: SBP > 160 when pulling sheath Lactulose (Chronulac, Cephulac) 20 gm GT BID [facility] Last Admin: 01/17/19 22:02 Dose: 20 gm Multi-Ingredient Cream (Lacrilube) 1 applic OPHTHALMIC Q6 [facility] Last Admin: 01/18/19 05:06 Dose: 1 applicatio Sodium Chloride () 500 ml IV BOLUS PRN PRN Reason: VASO-VAGAL PROTOCOL Sodium Chloride () 5 - 15 ml IV UD PRN PRN Reason: SALINE FLUSH Last Admin: 01/17/19 21:42 Dose: 15 ml Ticagrelor (Brilinta) 90 mg GT BID [facility] Last Admin: 01/17/19 22:02 Dose: 90 mg Medical Necessity - Tobacco Use Smoking Status: Current every day smoker Tobacco Use: Cigarettes Assessment/Plan All Active Problems (Last Updated 01/17/19 @ 09:11 by Tg Simons) ROSSI (acute kidney injury) (Acute) Ischemic cardiomyopathy (Acute) Cardiac arrest with ventricular fibrillation (Acute) Acute anterior wall NM (Acute) Cardiac arrest (Acute) Patient is a 53-year-old gentleman who was brought to the emergency department after experiencing cardiac arrest outside the hospital. There was apparently initiated by bystanders EMS noted V. fib patient was brought to the emergency department successfully resuscitated using ACLS protocol with ROS C. Patient was noted to have acute STEMI and underwent emergency left heart catheterization found to have severe cardiomyopathy with an ejection fraction of 15% patient had PTCA/ALLAN to mid and proximal lesions. An IABP was inserted and patient subsequently transferred to the intensive care unit 1. Acute anterior ST segment elevation NM. Patient presented with sustained V. fib and cardiac arrest successfully resuscitated using ACLS protocol with ROS C. Patient was noted to have acute STEMI and underwent emergency left heart catheterization found to have severe cardiomyopathy with an ejection fraction of 15% patient had PTCA/ALLAN to mid and proximal lesions 2. Ischemic cardiomyopathy an IABP was inserted admitted to the intensive care unit subsequently management deferred to cardiology. 3. Acute respiratory failure secondary to above patient was intubated prior to being admitted to the intensive care unit management of vent deferred to intensive care team 4. Suspected acute anoxic encephalopathy consultation has been placed to neurology. Dr. Roberts recommended patient to undergo CT of the head when medically stable 5. Acute kidney injury from ATN following patient cardiac arrest on fluids with consultation placed to nephrology; and up to 0.49 as of 01/18/2019 6. Acute transaminitis from shock liver 7. Acute metabolic acidosis from patient's cardiac arrest. Patient did receive bicarb 8. Morbid obesity with BMI of 32.7 9. Chronic back pain per history 10. Tobacco dependence 11. DVT prophylaxis patient is on heparin Active Medications Albuterol Sulfate (Ventolin Aerosols) 2.5 mg INHALATION Q2H PRN PRN PRN Reason: dyspnea, wheezing Aspirin (Ecotrin) 81 mg PO DAILY@0800 [facility] Atorvastatin Calcium (Lipitor) 80 mg PO QHS [facility] Last Admin: 01/16/19 23:38 Dose: 80 mg Atropine Sulfate () 0.5 mg IV UD PRN PRN Reason: HR <50 bpm Chlorhexidine Gluconate () 15 ml PO BID [facility] Last Admin: 01/16/19 22:15 Dose: 15 ml Famotidine (Pepcid) 20 mg GT BID [facility] Last Admin: 01/16/19 23:38 Dose: 20 mg Furosemide (Lasix) 40 mg IV DAILY [facility] Heparin Sodium (Beef Lung) (Heparin 500 Unit/5 Ml (100/Ml)) 500 unit IV UD PRN PRN Reason: HEPARIN FLUSH Heparin Sodium (Porcine) (Heparin Na) 0 unit IV UD PRN; Protocol Heparin Sodium/Sodium Chloride () 2,000 units IV UD [facility] Last Admin: 01/16/19 21:02 Dose: 2,000 units Hydralazine HCl (Apresoline Iv) 10 mg IV Q4H PRN PRN PRN Reason: SBP > 160 Eptifibatide (Integrilin) 75 mg in 100 mls @ 16.692 mls/hr CONT INF .Q6H [facility] Last Admin: 01/17/19 03:12 Dose: 16.692 mls/hr Heparin Sodium/Dextrose () 25,000 units in 250 mls @ 15 mls/hr IV .[id number] [facility]; Protocol Last Admin: 01/16/19 21:15 Dose: 15 mls/hr Sodium Bicarbonate 150 meq/ (Dextrose) 1,150 mls @ 100 mls/hr IV .[id number] [facility] Last Admin: 01/17/19 04:18 Dose: 100 mls/hr Sodium Chloride () 250 mls @ 15 mls/hr IV .[id number] PRN PRN Reason: SALINE FLUSH Last Admin: 01/17/19 01:23 Dose: 15 mls/hr Piperacillin Sod/Tazobactam (Sod 3.375 gm/ Sodium Chloride) 50 mls @ 12.5 mls/hr IV Q8 [facility] Last Admin: 01/17/19 06:16 Dose: 12.5 mls/hr Magnesium Sulfate 2 gm/ Sodium (Chloride) 104 mls @ 52 mls/hr IV X1 ONE Stop: 01/17/19 09:59 Dextrose/Sodium Chloride () 1,000 mls @ 100 mls/hr IV .Q10H [facility] Labetalol HCl (Trandate) 5 mg IV X1 PRN PRN Reason: SBP > 160 when pulling sheath Magnesium Hydroxide (Milk Of Magnesia) 30 ml PO DAILY PRN PRN PRN Reason: Constipation Nitroglycerin (Nitrostat) 0.4 mg SUBLINGUAL Q5M PRN PRN Reason: CARDIAC/CHEST PAIN Sodium Chloride () 500 ml IV BOLUS PRN PRN Reason: VASO-VAGAL PROTOCOL Sodium Chloride () 5 - 15 ml IV UD PRN PRN Reason: SALINE FLUSH Ticagrelor (Brilinta) 90 mg PO BID [facility] Code Visit Inpatient E&M: 19360 [facility] Hosp L3
[2019-01-18 08:24] LABS: Partial Thromboplast Time 59.2 Seconds (24.1-36.2)
--- NOTE | 2019-01-18 09:34 | CASEMGMT ---
SW participated in ICU rounds, spoke w/family briefly in waiting room after rounds. SW let family know that SW available should they need anything. ANGELINE Marcos
[2019-01-18] MEDS: Chlorhexidine 15 ML PO (10:20)
[2019-01-18] MEDS: Lactulose 20 GM/30 ML UDC GT (10:21)
[2019-01-18] MEDS: Furosemide 40 MG/4 ML Vial IV (10:30)
--- NOTE | 2019-01-18 10:32 | PCM.PN.NEU ---
Patient Problems: Active and Suspected Problems (Last Updated 01/17/19 @ 09:11 by Tg Simons) ROSSI (acute kidney injury) (Acute) Anoxic brain injury (Suspected) Ischemic cardiomyopathy (Acute) EF 15% per cath post CO and Vfib arrest 01/16/19 Cardiac arrest with ventricular fibrillation (Acute) Acute anterior wall CO (Acute) Cardiac arrest (Acute) Subjective: No issues overnight. Care discussed with Dr. Dillon as well as the nursing staff. Per nurse he has lost gag reflex overnight, and sluggish reacting pupils, absent corneal conjunctival reflex. Does breathe over the vent. Family at bedside, discussed with mother, brother and girlfriend about patient's current critical condition. CT head has not yet been done. - Physical Exam General: - - Comatose HEENT: Normocephalic Neck: Supple Lungs: Normal air movement Cardiovascular: Normal S1, Normal S2 Abdomen: Bowel Sounds Present Extremities: No cyanosis Neurological: - - comatose, limited neurology examination, s/p intubation, no response to DPS, pupils B/L 2-3 mm sluggish reacting to light, gag reflex, corneal/conjuctival reflex absent, is breathing over the vent, cerebellar/sensory/gait cannot be assessed, Reflexes + B/L B/S/T/K/A. Vital Signs Temp Pulse Resp BP Pulse Ox 102.7 F H 111 H 47 H 140/92 H 99 01/18/19 09:00 01/18/19 10:12 01/18/19 10:12 01/18/19 09:00 01/18/19 09:00 Oxygen Flow Rate (L/min) 40 Oxygen Delivery Method Mechanical Ventilator Weight: 109.9 kg Body Mass Index (BMI) 33.3 Finger Stick Blood Glucose 87 Intake and Output for Last 24 Hours 01/16/19 01/17/19 01/18/19 23:59 23:59 23:59 Intake Total 1114.6 / 1114.6 2505.4 / 2505.4 1054.4 / 1054.4 Output Total 395 / 395 186 / 186 122 / 122 Balance 719.6 / 719.6 2319.4 / 2319.4 932.4 / 932.4 Laboratory Tests Past 24 Hrs 01/16/19 01/16/19 01/17/19 17:31 20:55 03:15 WBC RBC Hgb Hct MCV MCH MCHC RDW RDW Differential Plt Count MPV Diff Path Review Reviewed Reviewed Reviewed APTT Sodium Potassium Chloride Carbon Dioxide Anion Gap BUN Creatinine Estim Creat Clear Calc Est GFR (MDRD) Af Amer Est GFR (MDRD) Non-Af BUN/Creatinine Ratio Glucose Calcium Magnesium Ammonia 01/17/19 01/17/19 01/17/19 09:15 16:40 17:15 WBC 20.3 H RBC 3.96 L Hgb 12.6 L Hct 37.2 L MCV 93.9 MCH 31.8 MCHC 33.9 RDW 15.6 H RDW Differential 52.4 H Plt Count 349 MPV 9.4 Diff Path Review APTT 50.3 H Sodium Potassium Chloride Carbon Dioxide Anion Gap BUN Creatinine Estim Creat Clear Calc Est GFR (MDRD) Af Amer Est GFR (MDRD) Non-Af BUN/Creatinine Ratio Glucose Calcium Magnesium Ammonia 62.0 H 01/18/19 01/18/19 01/18/19 01:25 03:50 03:50 WBC 18.3 H RBC 3.88 L Hgb 12.5 L Hct 36.2 L MCV 93.3 MCH 32.2 H MCHC 34.5 RDW 15.6 H RDW Differential 51.6 H Plt Count 356 MPV 9.7 Diff Path Review APTT 51.6 H Sodium 142 Potassium 5.2 H Chloride 105 Carbon Dioxide 21.0 Anion Gap 16 H BUN 76 H Creatinine 5.49 H Estim Creat Clear Calc 17.28 Est GFR (MDRD) Af Amer 14 L Est GFR (MDRD) Non-Af 12 L BUN/Creatinine Ratio 13.8 Glucose 101 Calcium 6.9 L Magnesium Ammonia 01/18/19 01/18/19 03:50 08:00 WBC RBC Hgb Hct MCV MCH MCHC RDW RDW Differential Plt Count MPV Diff Path Review APTT 59.2 H Sodium Potassium Chloride Carbon Dioxide Anion Gap BUN Creatinine Estim Creat Clear Calc Est GFR (MDRD) Af Amer Est GFR (MDRD) Non-Af BUN/Creatinine Ratio Glucose Calcium Magnesium 2.3 Ammonia POC Glucose 01/18/19 01/17/19 01/17/19 06:00 23:49 18:21 POC Glucose 87 91 78 01/17/19 12:19 POC Glucose 92 Medical Necessity - Tobacco Use Smoking Status: Current every day smoker Tobacco Use: Cigarettes Assessment/Plan All Active Problems (Last Updated 01/17/19 @ 09:11 by Tg Simons) ROSSI (acute kidney injury) (Acute) Ischemic cardiomyopathy (Acute) Cardiac arrest with ventricular fibrillation (Acute) Acute anterior wall CO (Acute) Cardiac arrest (Acute) The patient is a 53 year old M with PMH tobacco abuse, depression, obesity, chronic pain admitted status post cardiac arrest. History cannot be obtained from the patient as he is intubated and is obtained from the medical records and documentation. Per ED and hospitalist documentation patient was with her girlfriend yesterday 01/16/2019 when he collapsed, CPR was initiated immediately was found to be in V. fib arrest, ACLS protocol was followed per documentation, was intubated in the ED, found to have STEMI for which patient underwent cardiac catheterization with stent placement in the LAD, currently is on aspirin/Brilinta and heparin drip, continues to be comatose, absent gag corneal and conjunctival reflex, breathing over the vent, no documented weakness seizures. Impression ?Possible anoxic brain injury/hypoxic ischemic encephalopathy status post cardiac arrest Plan ?CT head without contrast images reviewed shows pseudo-SAH sign with severe anoxic brain damage. Per radiologist Dr. Esposito report there is SAH. I called Dr. Esposito and discussed patient's condition to which he agreed that this is probably pseudo-SAH sign secondary to cardiac arrest and severe anoxic brain injury and he said that he will addend his CT head report. ?Labs reviewed?WBC 21.9, Hb 13, sodium 145, potassium 5.4, creatinine 5.49, AST/ALT?2174/1649, ammonia 62 ?Prognosis extremely guarded ?Cardiology and nephrology following ?Family discussion done at bedside, all questions were answered, discussed about the critical condition and guarded prognosis from neurology standpoint at length. ?Further medical management per ICU team and hospitalist team ?Please call with questions if any ?Thank you for allowing us to part spent in patient's care and management.
[2019-01-18 11:06] LABS: Bedside Glucose 103 mg/dL (70-110)
--- NOTE | 2019-01-18 11:49 | PCM.PN.CARD ---
Subjectve: Patient intubated, no longer sedated, breathing over the vent, heme dynamically stable. Patient apparently has deteriorated from a neurological standpoint with loss of gag reflex, loss of corneal reflex, and GS deteriorated from 5-3. Heme dynamically the patient has been doing well and his balloon pump is been weaned off this morning. It will be pulled later on today with a FemoStop placement for eventual CT scan of his head later on this afternoon. Heparin has been discontinued. Objective: Vital Signs Temp Pulse Resp BP Pulse Ox 102.7 F H 108 H 51 H 119/53 L 98 01/18/19 09:00 01/18/19 11:46 01/18/19 11:07 01/18/19 11:00 01/18/19 11:00 Oxygen Flow Rate (L/min) 40 Oxygen Delivery Method Mechanical Ventilator Weight: 242 lb 4.608 oz Body Mass Index (BMI) 33.3 Finger Stick Blood Glucose 87 Intake and Output for Last 24 Hours 01/16/19 01/17/19 01/18/19 23:59 23:59 23:59 Intake Total 1114.6 / 1114.6 2505.4 / 2505.4 1270.4 / 1270.4 Output Total 395 / 395 186 / 186 126 / 126 Balance 719.6 / 719.6 2319.4 / 2319.4 1144.4 / 1144.4 General: Awake, Alert, Oriented x 3 HEENT: PERRL, EOMI, Sclera Non Icteric Neck: Supple, Good ROM, No Lymph Node Enlargement Lungs: Clear to auscultation Cardiovascular: Regular Rhythm, Normal S1, Normal S2, No Murmurs, No Rubs, No Gallops Vascular: No Carotid Bruits, Normal Femoral Pulses, Normal Radial Pulses, Normal Dorsalis Pedal Pulse, Normal Posterior Tibial Pulses Abdomen: Bowel Sounds Present, Soft, Non Tender, No HSM, No Organomegaly Extremities: No Cyanosis, No Clubbing, No edema Neurological: No Focal Motor or Sensory Deficit 01/17/19 16:40: APTT 50.3 H 01/17/19 17:15: WBC 20.3 H, RBC 3.96 L, Hgb 12.6 L, Hct 37.2 L, MCV 93.9, MCH 31.8, MCHC 33.9, RDW 15.6 H, RDW Differential 52.4 H, Plt Count 349, MPV 9.4 01/18/19 01:25: APTT 51.6 H 01/18/19 03:50: WBC 18.3 H, RBC 3.88 L, Hgb 12.5 L, Hct 36.2 L, MCV 93.3, MCH 32.2 H, MCHC 34.5, RDW 15.6 H, RDW Differential 51.6 H, Plt Count 356, MPV 9.7 01/18/19 03:50: Sodium 142, Potassium 5.2 H, Chloride 105, Carbon Dioxide 21.0, Anion Gap 16 H, BUN 76 H, Creatinine 5.49 H, Est GFR (MDRD) Af Amer 14 L, Est GFR (MDRD) Non-Af 12 L, BUN/Creatinine Ratio 13.8, Glucose 101, Calcium 6.9 L 01/18/19 03:50: Magnesium 2.3 01/18/19 08:00: APTT 59.2 H Rhythm: EKG: ECHO: Stress Test: Cardiac Cath: PCI: CT Surgery: Holter monitor: EPS: PPM: CXR: Chest CT Scan: Medical Necessity - Tobacco Use Smoking Status: Current every day smoker Tobacco Use: Cigarettes Assessment/Plan 1. Coronary artery disease: Patient status post cardiac arrest in the field requiring at least 5 defibrillations, CPR in route, and in the emergency room. He required aggressive ACLS protocol including intubation, CPR, additional defibrillation in the emergency room followed by emergent left heart catheterization. Emergent left heart catheterization via the left groin demonstrated multivessel coronary disease with an occluded old right coronary artery with robust left to right collaterals compromised by 3 tandem lesions in his proximal and mid LAD. His left circumflex had moderate nonobstructive coronary disease. He received 3 drug-eluting stents in his proximal mid LAD with an excellent result. His ejection fraction at the conclusion of the procedure was approximately 15 to 20%. We have no plans at this time for PCI of his chronically occluded RCA. Maximum troponin thus far was 126. At this point the patient's neurological condition has deteriorated, and apparently he fell forward and hit his head when he had his cardiac arrest. He had required anticoagulation therapy with baby aspirin, heparin, Integrilin, and Brilinta. Now that he is he dynamically more stabilized, we have discontinued his heparin, and will proceed with intrinsic balloon pump withdrawal so that he may proceed with CT scan of his head without contrast to determine if he has any intracerebral hemorrhage. We have held his baby aspirin and Brilinta until we get his CAT scan later on today. If the patient has no evidence of intracerebral hemorrhage we will give the patient his baby aspirin and Brilinta, and proceed with EEG analysis. 2. Cardiac arrest: Patient may have suffered anoxic brain injury given the prolonged resuscitation time. CT of head pending once balloon pump has been removed. 3. LV dysfunction: The patient had severe LV dysfunction at the conclusion of the procedure and echocardiogram confirmed severe global LV dysfunction. Patient has been started on IV beta-lewis as well as Coreg 3.125 mg p.o. twice daily. Patient is still an uric with a sending creatinine so we will hold off on digoxin for rate control at this time. His LFTs were mildly elevated with an ALT of 1600. Would recommend repeating LFTs to make sure they are trending downwards. Would hold off on amiodarone until we see a downward trend of his LFTs. 4. Hyperlipidemia: Continue aggressive LDL reduction with statin therapy. We may want to consider holding his Lipitor during his increasing and worsening liver function test. 5. Discussed with Dr. Dillon. Thank you very much for the opportunity to participate in the cardiac care of your patient. Discussed with patient's family our treatment plan, and they agree to proceed. Critical care time more than 30 minutes including anterior to balloon pump removal. Code Visit Inpatient E&M: 35934 [facility] Hosp L2
--- NOTE | 2019-01-18 11:58 | CASEMGMT ---
SW spoke w/pt's mother in room, support offered to pt's mother. She does have a lot of support herself, though spoke about how difficult all of this is. She also spoke w/SW about losing her granddaughter(pt's daughter) who was 31, a few years ago. Pt's mother was present when her granddaughter . SW offered supportive listening to pt's mother. Pt is going to have the balloon pump removed now, so pt's mother encouraged by RN and SW to leave the floor and get herself something to eat, take a break. Pt's mother plans to do so. SW remains available for support to pt's mother and family. ANGELINE Marcos
[2019-01-18 12:01] LABS: ACT Activated Clotting Time 175 sec (74-137)
--- NOTE | 2019-01-18 12:29 | PCM.PN.REN ---
Patient Problems: Active and Suspected Problems (Last Updated 01/17/19 @ 09:11 by Tg Simons) ROSSI (acute kidney injury) (Acute) Anoxic brain injury (Suspected) Ischemic cardiomyopathy (Acute) EF 15% per cath post AK and Vfib arrest 01/16/19 Cardiac arrest with ventricular fibrillation (Acute) Acute anterior wall AK (Acute) Cardiac arrest (Acute) Subjective: no new events - Physical Exam HEENT: Atraumatic, PERRLA, EOMI, Normocephalic Neck: Supple, No JVD, Negative Carotid Bruits Lungs: Clear to auscultation, Normal air movement Cardiovascular: Regular rate, No murmurs Abdomen: Bowel Sounds Present, Soft, Non Tender Extremities: No edema, Capillary Refill Less than 3 Seconds Skin: No rashes, No breakdown Musculoskeletal: No Tenderness to Palpation of Joints or Extremities Vital Signs Temp Pulse Resp BP Pulse Ox 102.7 F H 108 H 51 H 119/53 L 98 01/18/19 09:00 01/18/19 11:46 01/18/19 11:07 01/18/19 11:00 01/18/19 11:00 Oxygen Flow Rate (L/min) 40 Oxygen Delivery Method Mechanical Ventilator Weight: 109.9 kg Body Mass Index (BMI) 33.3 Finger Stick Blood Glucose 87 Intake and Output for Last 24 Hours 01/16/19 01/17/19 01/18/19 23:59 23:59 23:59 Intake Total 1114.6 / 1114.6 2505.4 / 2505.4 1270.4 / 1270.4 Output Total 395 / 395 186 / 186 126 / 126 Balance 719.6 / 719.6 2319.4 / 2319.4 1144.4 / 1144.4 Microbiology Past 72 Hours 01/18/19 07:05 Gram Stain - Final Sputum, Tracheal Aspirate Laboratory Tests Past 24 Hrs 01/16/19 01/16/19 01/17/19 17:31 20:55 03:15 WBC RBC Hgb Hct MCV MCH MCHC RDW RDW Differential Plt Count MPV Diff Path Review Reviewed Reviewed Reviewed APTT Activated Clotting Time Sodium Potassium Chloride Carbon Dioxide Anion Gap BUN Creatinine Estim Creat Clear Calc Est GFR (MDRD) Af Amer Est GFR (MDRD) Non-Af BUN/Creatinine Ratio Glucose Calcium Magnesium 01/17/19 01/17/1919 16:40 17:15 01:25 WBC 20.3 H RBC 3.96 L Hgb 12.6 L Hct 37.2 L MCV 93.9 MCH 31.8 MCHC 33.9 RDW 15.6 H RDW Differential 52.4 H Plt Count 349 MPV 9.4 Diff Path Review APTT 50.3 H 51.6 H Activated Clotting Time Sodium Potassium Chloride Carbon Dioxide Anion Gap BUN Creatinine Estim Creat Clear Calc Est GFR (MDRD) Af Amer Est GFR (MDRD) Non-Af BUN/Creatinine Ratio Glucose Calcium Magnesium 01/18/19 01/18/19 01/18/19 03:50 03:50 03:50 WBC 18.3 H RBC 3.88 L Hgb 12.5 L Hct 36.2 L MCV 93.3 MCH 32.2 H MCHC 34.5 RDW 15.6 H RDW Differential 51.6 H Plt Count 356 MPV 9.7 Diff Path Review APTT Activated Clotting Time Sodium 142 Potassium 5.2 H Chloride 105 Carbon Dioxide 21.0 Anion Gap 16 H BUN 76 H Creatinine 5.49 H Estim Creat Clear Calc 17.28 Est GFR (MDRD) Af Amer 14 L Est GFR (MDRD) Non-Af 12 L BUN/Creatinine Ratio 13.8 Glucose 101 Calcium 6.9 L Magnesium 2.3 01/18/19 01/18/19 08:00 11:45 WBC RBC Hgb Hct MCV MCH MCHC RDW RDW Differential Plt Count MPV Diff Path Review APTT 59.2 H Activated Clotting Time 175 H Sodium Potassium Chloride Carbon Dioxide Anion Gap BUN Creatinine Estim Creat Clear Calc Est GFR (MDRD) Af Amer Est GFR (MDRD) Non-Af BUN/Creatinine Ratio Glucose Calcium Magnesium POC Glucose 01/18/19 01/18/19 01/17/19 10:59 06:00 23:49 POC Glucose 103 87 91 01/17/19 01/17/19 18:21 12:19 POC Glucose 78 92 Medical Necessity - Tobacco Use Smoking Status: Current every day smoker Tobacco Use: Cigarettes Assessment/Plan All Active Problems (Last Updated 01/17/19 @ 09:11 by Tg Simons) ROSSI (acute kidney injury) (Acute) Ischemic cardiomyopathy (Acute) Cardiac arrest with ventricular fibrillation (Acute) Acute anterior wall AK (Acute) Cardiac arrest (Acute) ROSSI. no prior kidney disease as per labs. Due to extended cardiac arrest he has multi organ failure including ROSSI, Acute hepatic failure. anuric. minimal brain stem functions. CT head today. poor prognosis overall. final neuro prognosis to be determined Acidosis. PH is ok STEMI. s/p stenting cardiology discussed with mother at bedside
--- NOTE | 2019-01-18 13:00 | NURSING ---
[facility] made aware of possible organ donation. Patient remains full code and family has no withdraw plans at this time.
--- NOTE | 2019-01-18 13:16 | PCM.OP.PRO ---
Problem List (1) Ischemic cardiomyopathy Status: Acute Comment: EF 15% per cath post LA and Vfib arrest 01/16/19 (2) Arteriosclerosis of coronary artery in patient with history of myocardial infarction Status: Chronic Comment: STEMI, VFib arrest, coronary stents to LAD X 2 01/16/19 (3) Stented coronary artery Status: Chronic Comment: Global LV systolic dysfunction- Severe, LVEF: by Echogram 15 %; Depressed Left Ventricular systolic function - Severe; Successful PTCA/ALLAN of mid LAD with a 2.5 x 16 Promus Synergy followed immediately upstream with a 2.5 x 38 Promus Synergy, post dilated iwth a 3.5 x 12 NC balloon in proximal 2/3 of stent; 85%-->0%, no dissection or significant plaque shift into DIAGs. Successful PTCA/ALLAN Proximal LAD with a 3.5 x 16 Promus Synergy, post dilated throughout with a 3.5 x 12 NC Balloon; 85%-->0% ,no dissection. Emergent IABP placed for severe LV dysfunction and recent cardiac arrest. (4) Cardiac arrest with ventricular fibrillation Status: Acute (5) Acute anterior wall LA Status: Acute Procedure Report Date of Procedure: 01/18/19 Intra-aortic balloon pump removal: The patient had been tolerating intra-aortic balloon pump at 1: 4 4. Of 1 hours time, it was then changed to 1: 1 and his heparin was discontinued. An ACT was found to be approximately 175, and the intrinsic balloon pump was removed with direct manual pressure held for approximately 30 minutes. A FemoStop was then placed in its pressure titrated down to 40 mmHg. Patient had trace posterior tibialis pulses prior to balloon pump removal, and had 1-2+ PT pulses with minimal DP pulses post pump removal. Patient had no complications during sheath removal and no hematoma was noted. Conclusions: Successful intra-aortic balloon pump removal with direct manual pressure held for 30 minutes followed by FemoStop at 40 mmHg. Plan: Would recommend continuing FemoStop for 6 hours at 40 mmHg, and remain in place for at least 1 hour prior to transport to CT scanner for CT of his head. No hematoma. No complications.
--- NOTE | 2019-01-18 13:19 | PRO.PCM_ITS ---
Problem List (1) Ischemic cardiomyopathy Status: Acute Comment: EF 15% per cath post NM and Vfib arrest 01/16/19 (2) Arteriosclerosis of coronary artery in patient with history of myocardial infarction Status: Chronic Comment: STEMI, VFib arrest, coronary stents to LAD X 2 01/16/19 (3) Stented coronary artery Status: Chronic Comment: Global LV systolic dysfunction- Severe, LVEF: by Echogram 15 %; Depressed Left Ventricular systolic function - Severe; Successful PTCA/ALLAN of mid LAD with a 2.5 x 16 Promus Synergy followed immediately upstream with a 2.5 x 38 Promus Synergy, post dilated iwth a 3.5 x 12 NC balloon in proximal 2/3 of stent; 85%-->0%, no dissection or significant plaque shift into DIAGs. Successful PTCA/ALLAN Proximal LAD with a 3.5 x 16 Promus Synergy, post dilated throughout with a 3.5 x 12 NC Balloon; 85%-->0% ,no dissection. Emergent IABP placed for severe LV dysfunction and recent cardiac arrest. (4) Cardiac arrest with ventricular fibrillation Status: Acute (5) Acute anterior wall NM Status: Acute Procedure Report Date of Procedure: 01/18/19 Intra-aortic balloon pump removal: The patient had been tolerating intra-aortic balloon pump at 1: 4 4. Of 1 hours time, it was then changed to 1: 1 and his heparin was discontinued. An ACT was found to be approximately 175, and the intrinsic balloon pump was removed with direct manual pressure held for approximately 30 minutes. A FemoStop was then placed in its pressure titrated down to 40 mmHg. Patient had trace posterior tibialis pulses prior to balloon pump removal, and had 1-2+ PT pulses with minimal DP pulses post pump removal. Patient had no complications during sheath removal and no hematoma was noted. Conclusions: Successful intra-aortic balloon pump removal with direct manual pressure held for 30 minutes followed by FemoStop at 40 mmHg. Plan: Would recommend continuing FemoStop for 6 hours at 40 mmHg, and remain in place for at least 1 hour prior to transport to CT scanner for CT of his head. No hematoma. No complications.
[2019-01-18] MEDS: Carvedilol 3.125 MG TABLET GT (13:25)
[2019-01-18] MEDS: TICAGRELOR 90 MG TABLET GT (13:25)
[2019-01-18] MEDS: Aspirin 81 MG TAB.CHEW GT (13:29)
--- NOTE | 2019-01-18 14:27 | CHAPLAIN ---
Type of Pastoral Visit ___ Initial Visit _x__ Follow-up Visit ___ On-call Visit ___ General Patient Visit ___ Spiritual Assessment ___ Family Conference ___ Bereavement ___ Rapid Response ___ Code Blue ___ Other (describe below) Pastoral Care Referral From ___ Patient ___ Family _x__ Nurse ___ Physician _x__ Expert Medical Writer ___ Cistern Room Working Supervisor ___ Other (describe below) Sacrament/Intervention _x__ Active listening ___ Anointing ___ Jew ___ Bereavement ___ Communion ___ Norma exploration ___ ___ Life review _x__ Prayer ___ Reconciliation ___ Sacrament of Sick _x__ Supportive presence ___ Wedding ___ Other (describe below) Pastoral Comments met with SO, mother, brother, and friends of patient; pt is out of room for testing; spoke with RN and SW prior to meeting with family; report from staff is grave situation; SO expresses feelings of being lost and not knowing what to do; mother repeats words of doctors and looks for some gleamer of hope; mother's linux system engineer is with family and offers support and prayer; presence and support offered and given
--- NOTE | 2019-01-18 15:42 | NURSING ---
[facility] updated according to CT results, patient has severe brain damage. Updated that family is deciding their options on further treatment or withdrawing care.
--- NOTE | 2019-01-18 16:42 | NURSING ---
[facility] notified family has decided to withdraw care this evening. Per [facility] staff, MICHAEL Zacarias to withdraw care and patient is not a candidate for organ donation. Call [facility] after cardiac for possible tissue and eye donation.
--- NOTE | 2019-01-18 17:02 | CHAPLAIN ---
Type of Pastoral Visit ___ Initial Visit _x__ Follow-up Visit ___ On-call Visit ___ General Patient Visit ___ Spiritual Assessment ___ Family Conference ___ Bereavement ___ Rapid Response ___ Code Blue ___ Other (describe below) Pastoral Care Referral From ___ Patient _x__ Family _x__ Nurse ___ Physician ___ Electron Beam Welder ___ Diversified Crops I Farmworker ___ Other (describe below) Sacrament/Intervention _x__ Active listening ___ Anointing ___ Congregational ___ Bereavement ___ Communion ___ Norma exploration ___ _x__ Life review ___ Prayer ___ Reconciliation ___ Sacrament of Sick _x__ Supportive presence ___ Wedding ___ Other (describe below) Pastoral Comments family has made decision to remove life support from patient after learning of test results on his brain function; family is tearful, others are gathering, presence is given and time to facilitate conversation about patient and his life; family requests this industrial electrical technician to be present when pt is removed from life support
--- NOTE | 2019-01-18 17:21 | CPS ---
Family in with patient, deciding when to withdrawl care.
[2019-01-18] MEDS: Morphine 2 MG/ML Syringe IV ×10 (19:12→23:43)
[2019-01-18] MEDS: LORazepam 2 MG/ML Syringe IV ×17 (19:15→23:42)
[2019-01-18] MEDS: Atropine Sulfate 1% 2 ml Bottle 4 DRP PO ×9 (19:35→23:44)
[2019-01-18] MEDS: 0.9% NaCl Peripheral Flush Adult/Peds IV ×16 (19:42→23:43)
--- NOTE | 2019-01-18 20:41 | CHAPLAIN ---
Type of Pastoral Visit ___ Initial Visit ___ Follow-up Visit _x__ On-call Visit ___ General Patient Visit ___ Spiritual Assessment ___ Family Conference _x__ Bereavement ___ Rapid Response ___ Code Blue ___ Other (describe below) Pastoral Care Referral From ___ Patient _x__ Family _x__ Nurse ___ Physician ___ Pecan Sheller ___ Manufacturing Cost Estimator ___ Other (describe below) Sacrament/Intervention _x__ Active listening ___ Anointing ___ Synagogue _x__ Bereavement ___ Communion ___ Norma exploration ___ _x__ Life review _x__ Prayer ___ Reconciliation ___ Sacrament of Sick _x__ Supportive presence ___ Wedding ___ Other (describe below) Pastoral Comments patient was extubated shortly after 7 p.m.; offered scriptures and prayers for pt and family during this time; assisted family to facilitate interaction and expression of relations with the pt and their stories of him; waited with family as they sat at his bedside in the dying process; made them offers for practical needs; talked with nurses about their own losses and processed this event with them
[2019-01-19] VITALS: BP 77/43; PULSE 99; RESP 45; TEMP 37.5; O2SAT 95
[2019-01-19] MEDS: Morphine 2 MG/ML Syringe IV (00:14)
[2019-01-19] MEDS: 0.9% NaCl Peripheral Flush Adult/Peds IV ×7 (00:14→02:06)
[2019-01-19] MEDS: LORazepam 2 MG/ML Syringe IV ×7 (00:14→02:05)
[2019-01-19] MEDS: Atropine Sulfate 1% 2 ml Bottle 4 DRP PO ×3 (00:14→01:23)
[2019-01-19] MEDS: Morphine 4 MG/ML Syringe IV ×3 (00:48→02:06)
[2019-01-19 01:00] VITALS: BP 75/49; PULSE 97; RESP 44
[2019-01-19 02:00] VITALS: BP 62/12; PULSE 94; RESP 37; TEMP 37.1
--- NOTE | 2019-01-19 03:54 | NURSING ---
time of 211, Dr. Ugalde notified. Mother, fiance, brother and sister in law present. Emotional support given. Bilateral PIV and PICC line removed. Duran and Fecal Management system removed. Patient cleaned and placed in body bag per [facility] directions. water and sewer systems supervisor notified that [place] [facility] [place]
--- NOTE | 2019-01-19 05:02 | PCM.DEATH ---
Preliminary Cause of Acute anterior wall AZ Date of Admission: 01/16/19 Date of : 01/19/19 - Principle Diagnosis Acute anterior wall AZ Problem List: Active and Suspected Problems (Last Reviewed 01/19/19 @ 04:48 by Phyllis Hudson) ROSSI (acute kidney injury) (Acute) Anoxic brain injury (Suspected) Ischemic cardiomyopathy (Acute) EF 15% per cath post [place] and Vfib arrest 01/16/19 Cardiac arrest with ventricular fibrillation (Acute) Acute anterior wall [place] (Acute) Cardiac arrest (Acute) Hospital Course 53-year-old male presented to the hospital on 01/16/2019 via EMS with a history of working on a house with his girlfriend at which point he unfortunately collapsed and his girlfriend started CPR and called the ambulance who continued CPR and felt that the patient was in V. fib and then performed 5-6 rounds of shocks with and was noted to have a ST anterior elevation without a pulse, he received 8 epinephrine rounds, and amnio bolus x2, and bicarb dosing x4. He had an IO placed in his right tibia when he presented to the ER cardiology was consulted immediately and was started on a heparin bolus and taken to the [facility], where he was found to have an ejection fraction of 15%, and he had a stent placed in the mid LAD. He was transferred to the ICU intubated, where his condition continued to deteriorate. He had worsening renal function, and rising potassium. The decision was made by the family today to extubate Mr. Bello and place him on FLOOR COVERING CONTRACTOR. His condition continued to deteriorate and he at 0212 on 01/19/2019.
--- NOTE | 2019-01-19 05:18 | EXP.PCM_ITS ---
Preliminary Cause of Acute anterior wall CO Date of Admission: 01/16/19 Date of : 01/19/19 - Principle Diagnosis Acute anterior wall CO Problem List: Active and Suspected Problems (Last Reviewed 01/19/19 @ 04:48 by Phyllis Hudson) ROSSI (acute kidney injury) (Acute) Anoxic brain injury (Suspected) Ischemic cardiomyopathy (Acute) EF 15% per cath post CO and Vfib arrest 01/16/19 Cardiac arrest with ventricular fibrillation (Acute) Acute anterior wall CO (Acute) Cardiac arrest (Acute) Hospital Course 53-year-old male presented to the hospital on 01/16/2019 via EMS with a history of working on a house with his girlfriend at which point he unfortunately collapsed and his girlfriend started CPR and called the ambulance who continued CPR and felt that the patient was in V. fib and then performed 5-6 rounds of [place] cks with and was noted to have a ST anterior elevation without a pulse, he received 8 epinephrine rounds, and amnio bolus x2, and bicarb dosing x4. He had an IO placed in his right tibia when he presented to the ER cardiology was consulted immediately and was started on a heparin bolus and taken to the [facility], where he was found to have an ejection fraction of 15%, and he had a stent placed in the mid LAD. He was transferred to the ICU intubated, where his condition continued to deteriorate. He had worsening renal function, and rising potassium. The decision was made by the family today to extubate Mr. Bello and place him on CALKER. His condition continued to deteriorate and he at 0212 on 01/19/2019.
--- NOTE | 2019-01-19 05:24 | NURSING ---
Patient off the floor to the [facility] [place] at [phone]. [facility] notified.
== END 2019-01-19 02:12 | DRG 270 ==
LOC: ED 17:56 → ICU 18:15
PROVIDERS: Internal Medicine Critical Care Medicine; Admitting Provider Family Medicine; Emergency Provider Emergency Medicine; Family Provider Family Medicine; PCP Family Medicine; Referring Provider Internal Medicine Cardiovascular Disease; Visit Provider Internal Medicine
DX: I21.09 ST elevation (STEMI) myocardial infarction involving other coronary artery of anterior wall (principal); J96.01 Acute respiratory failure with hypoxia; K72.01 Acute and subacute hepatic failure with coma; N17.9 Acute kidney failure, unspecified; G93.1 Anoxic brain damage, not elsewhere classified; R40.2432 Glasgow coma scale score 3-8, at arrival to emergency department; I49.01 Ventricular fibrillation; I46.9 Cardiac arrest, cause unspecified; F17.210 Nicotine dependence, cigarettes, uncomplicated; G89.29 Other chronic pain; M54.9 Dorsalgia, unspecified; E66.01 Morbid (severe) obesity due to excess calories; I25.5 Ischemic cardiomyopathy; Z68.32 Body mass index [BMI] 32.0-32.9, adult; E78.5 Hyperlipidemia, unspecified
CPT/HCPCS: 31500; 31720; 33967; 36569; 36600; 70450; 71045; 74018; 80048; 80053; 80061; 80076; 82140; 82803; 82962; 83735; 84484; 85025; 85027; 85347; 85610; 85730; 87040; 87070; 87086; 87205; 87641; 92941; 92950; 93005; 93306; 93458; 94002; 94003; 94640; 97802; 99282; J7030; J7050; Q9957; A4216; C1725; C1769; C1874; C1887; C8929; C9606; J1327; J1940; J7799; Q9967